=== PATIENT | male | born 1940 | race Caucasian/White ===

== ENCOUNTER → 2017-07-29 10:53 | Outpatient (CLI) | payer MEDICARE, OTHER, SELFPAY ==
[2017-07-23 15:32] VITALS: BP 144/70; BMI 23.8
[2017-07-29 13:36] LABS: AST(SGOT) 21 U/L (15-37); Alanine Aminotransfer ALT/SGPT 38 U/L (16-61); Albumin, Serum 4.1 g/dL (3.2-5.0); Alkaline Phosphatase 57 U/L (45-117); Bilirubin, Direct 0.24 mg/dL (0.00-0.30); Cholesterol 181 mg/dL (200); Globulin 3.5 g/dL (2.2-4.2); High Density Lipoprotein 72 mg/dL; Protein, Total 7.6 g/dL (6.4-8.2); Triglycerides 56 mg/dL; Very Low Density Lipoprotein 11 mg/dL (5-40)
== END ==
PROVIDERS: Family Provider Internal Medicine; PCP Internal Medicine; Visit Provider Internal Medicine Cardiovascular Disease
DX: E78.5 Hyperlipidemia, unspecified (principal)
CPT/HCPCS: 36415; 80061; 80076

== ENCOUNTER → 2017-12-15 | Outpatient (CLI) | payer MEDICARE, OTHER, SELFPAY ==
[2017-12-15 17:50] LABS: Absolute Lymphocyte Count 1.78 X10^3/ul (0.83-4.51); Absolute Neutrophil Count 2.6 X10^3/uL (2.0-7.7); Basophil# 0.05 X10^3/uL; Eosinophil# 0.38 X10^3/uL; Eosinophils% 7.4 % (0-5); Hematocrit 40.8 % (40-54); Lymphocyte # 1.78 X10^3/ul (4.0); Lymphocyte % 34.5 % (19-41); Mean Corp Hgb Conc 34.3 g/gl (32-36); Mean Corpuscular Volume 93.2 fL (80-94); Mean Platelet Vol. 9.6 fl (6.2-12.0); Monocyte# 0.34 X10^3/uL; Monocyte% 6.6 % (0-10); Neutrophil % 50.3 % (47-70); POSITIVE COUNT NO; POSITIVE DIFFERENTIAL NO; POSITIVE MORPHOLOGY NO; Platelet Count 202 K/mm3 (150-450); RBC Distribution Width CV 12.8 % (11.6-14.6); RBC Distribution Width SD 43.8 fl (35.1-43.9); Red Blood Count 4.38 M/mm3 (4.6-6.2); White Blood Count 5.2 K/mm3 (4.4-11.0)
[2017-12-15 17:57] LABS: Erythrocyte Sedimentation Rate 6 mm/hr (0-20)
[2017-12-15 18:05] LABS: Vitamin B12 537 pg/mL (211-911); Vitamin D,25 Hydroxy 44.4 ng/mL (29.95-100.01)
[2017-12-15 18:06] LABS: ALB/GLOB Ratio 1.1 RATIO (0.9-2.4); AST(SGOT) 18 U/L (15-37); Alanine Aminotransfer ALT/SGPT 35 U/L (16-61); Albumin, Serum 4.2 g/dL (3.2-5.0); Alkaline Phosphatase 51 U/L (45-117); Anion Gap 9 (5-15); BUN 15 mg/dL (7-18); BUN/Creat Ratio 14.7 RATIO (10-20); Calcium,Total 9.1 mg/dL (8.5-10.1); Chloride 102 mmol/L (98-107); Creatinine, Serum 1.02 mg/dL (0.70-1.30); EST Glomerular Filtration Rate 75 mL/min (>60); Est Glom Filt Rate - Afr Amer 91 mL/min (>60); Ferritin 194 ng/mL (26-388); Globulin 3.8 g/dL (2.2-4.2); Glucose 115 mg/dL (74-106); Iron 105 ug/dL (65-175); Magnesium 2.3 mg/dL (1.6-2.6); Potassium 3.8 mmol/L (3.5-5.1); Sodium Level 139 mmol/L (136-145); Thyroid Stim Hormone (TSH) 1.56 uIU/mL (0.358-3.74)
== END | disposition home or self-care (01) ==
LOC: MFPLAB 15:12
PROVIDERS: Family Provider Family Medicine; PCP Family Medicine; Visit Provider Family Medicine
DX: I25.10 Atherosclerotic heart disease of native coronary artery without angina pectoris (principal); R53.83 Other fatigue; R41.3 Other amnesia; R25.3 Fasciculation
CPT/HCPCS: 36415; 80053; 82306; 82607; 82728; 83540; 83735; 84403; 84443; 85025; 85652

== ENCOUNTER → 2018-01-25 10:54 | Outpatient (CLI) | payer MEDICARE, OTHER, SELFPAY ==
--- NOTE | 2018-01-25 10:58 | MRI_ITS ---
STUDY: MRI BRAIN WITHOUT CONTRAST REASON FOR EXAM: Male, 77 years old. MEMORY ISSUES CONFUSION. TECHNIQUE: Standardized multiplanar fat and water weighted pulse sequences were obtained. COMPARISON: None. FINDINGS: Normal size of the ventricles and extra-axial spaces for the patient's age. There are a limited number of small white matter hyperintensities, distributed throughout the deep white matter tracts of the cerebral hemispheres, consistent with mild chronic white matter ischemic changes. Normal bilateral basal ganglia. Normal thalami. There is no extra-axial fluid accumulation. Normal flow voids within the major intracranial circulation suggesting patency by spin echo criteria. Normal sella turcica, pituitary gland, infundibular stalk, optic chiasm and hypothalamus. Normal tectal plate and pineal gland. Normal midbrain, roxana and medulla. Normal cerebellum. Normal basal cisterns. Normal bilateral temporal bones. Normal bilateral internal auditory canals. There is an ocular lens implant the left globe. Normal right globe. The intraorbital contents otherwise are normal. There is mucosal thickening of the ethmoid, left frontal, left sphenoid and left maxillary sinuses.. Normal calvarium and skull base. Normal visualized soft tissue structures. Normal visualized upper cervical spine. MRI/Brain without Contrast IMPRESSION: Involutional changes of the brain, as described above. There is mild small vessel ischemic white matter disease. There is paranasal sinusitis. Electronically Signed: Sherrie Zendejas MD at 11:59 EDT , Service support ,
== END ==
PROVIDERS: Family Provider Family Medicine; PCP Family Medicine; Visit Provider Family Medicine
DX: R41.3 Other amnesia (principal)
CPT/HCPCS: 70551

== ENCOUNTER → 2018-05-17 07:09 | Outpatient (CLI) | payer MEDICARE, OTHER, SELFPAY ==
[2018-04-25 15:12] VITALS: BMI 23.8
--- NOTE | 2018-05-17 11:23 | NEURO ---
NCS and/or EMG Patient Report Ordering Doctor: Marcos Nelson DATE OF SERVICE: 05/17/18 This is a bilateral upper extremity nerve conduction study and a right upper and right lower extremity EMG along with EMG of cervical thoracic and lumbar paraspinal musculature on the right in this 77-year-old otherwise healthy male with a history of gradual weakness in his arms bilaterally as well as muscle twitching bilaterally in his arms. He also notices muscle cramps. He has been on atorvastatin for many years, and his symptoms as above have been present for approximately 2 years. 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 There is no neck pain or neck injury. On examination he has visible muscle fasciculations in his bilateral pectoralis muscles, bilateral biceps and deltoid muscles, and bilateral thoracic paraspinal muscles. There are no fasciculations evident in his legs. Sensory and motor nerve conduction study of the bilateral upper extremities is performed. There is mild prolongation of the median motor distal latencies with mild reduction of amplitudes more so on the left side but intact conduction velocities. The ulnar motor and sensory and radial sensory responses are normal. The median and ulnar F-wave latencies are normal. It was suggested to the patient that the right lower extremity also be evaluated by nerve conduction study however he deferred testing. Extensive needle electromyography was performed in the right upper extremity. Muscles evaluated included the first dorsal interosseous, abductor pollicis brevis, brachioradialis, biceps, triceps and deltoid muscles as well as the pectoralis major muscles. Fibrillations and fasciculations were noted and several muscles including the abductor pollicis brevis, brachioradialis, biceps and pectoralis muscle. Right thoracic paraspinal muscles demonstrated fibrillation potentials. There were fibrillation potentials also in the cervical paraspinal muscles on the right. Lumbar paraspinal muscles demonstrated normal insertional activity. In the right lower extremity muscles evaluated included the extensor digitorum brevis, abductor hallucis, medial gastrocnemius, anterior tibialis, vastus medialis and vastus lateralis muscles. In the lower extremity all muscles demonstrated normal insertional activity with absence of pathologic spontaneous activity. Impression: Abnormal EMG in multiple regions demonstrating relation potentials and fasciculations. Abnormal regions include the right upper extremity and the thoracic paraspinal muscles. There are visible fasciculations bilaterally. Nerve conduction study is normal. These findings are consistent with ALS. Multiple polyradiculopathy may be an alternative although much less likely explanation. This was explained to the patient. Is recommended that the patient have further neuro imaging including thoracic and cervical spine.
--- NOTE | 2018-05-17 11:30 | NEURO_ITS ---
NCS and/or EMG Patient Report Ordering Doctor: Marcos Nelson DATE OF SERVICE: 05/17/18 This is a bilateral upper extremity nerve conduction study and a right upper and right lower extremity EMG along with EMG of cervical thoracic and lumbar paraspinal musculature on the right in this 77-year-old otherwise healthy male with a history of gradual weakness in his arms bilaterally as well as muscle twitching bilaterally in his arms. He also notices muscle cramps. He has been on atorvastatin for many years, and his symptoms as above have been present for approximately 2 years. 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 There is no neck pain or neck injury. On examination he has visible muscle fasciculations in his bilateral pectoralis muscles, bilateral biceps and deltoid muscles, and bilateral thoracic paraspinal muscles. There are no fasciculations evident in his legs. Sensory and motor nerve conduction study of the bilateral upper extremities is performed. There is mild prolongation of the median motor distal latencies with mild reduction of amplitudes more so on the left side but intact conduction velocities. The ulnar motor and sensory and radial sensory responses are normal. The median and ulnar F-wave latencies are normal. It was suggested to the patient that the right lower extremity also be evaluated by nerve conduction study however he deferred testing. Extensive needle electromyography was performed in the right upper extremity. Muscles evaluated included the first dorsal interosseous, abductor pollicis brevis, brachioradialis, biceps, triceps and deltoid muscles as well as the pectoralis major muscles. Fibrillations and fasciculations were noted and several muscles including the abductor pollicis brevis, brachioradialis, biceps and pectoralis muscle. Right thoracic paraspinal muscles demonstrated fibrillation potentials. There were fibrillation potentials also in the cervical paraspinal muscles on the right. Lumbar paraspinal muscles demonstrated normal insertional activity. In the right lower extremity muscles evaluated included the extensor digitorum brevis, abductor hallucis, medial gastrocnemius, anterior tibialis, vastus medialis and vastus lateralis muscles. In the lower extremity all muscles demonstrated normal insertional activity with absence of pathologic spontaneous activity. Impression: Abnormal EMG in multiple regions demonstrating relation potentials and fasciculations. Abnormal regions include the right upper extremity and the thoracic paraspinal muscles. There are visible fasciculations bilaterally. Nerve conduction study is normal. These findings are consistent with ALS. M ultiple polyradiculopathy may be an alternative although much less likely explanation. This was explained to the patient. Is recommended that the patient have further neuro imaging including thoracic and cervical spine.
== END ==
PROVIDERS: Family Provider Family Medicine; PCP Family Medicine; Referring Provider Family Medicine; Visit Provider Family Medicine
DX: R25.3 Fasciculation (principal)
CPT/HCPCS: 95886; 95911

== ENCOUNTER → 2018-05-26 07:18 | Outpatient (CLI) | payer MEDICARE, OTHER, SELFPAY ==
[2018-04-25 15:12] VITALS: BMI 23.8
--- NOTE | 2018-05-26 07:21 | MRI_ITS ---
STUDY: MRI THORACIC SPINE WITHOUT CONTRAST REASON FOR EXAM: Male, 77 years old. Muscle twitching in the upper arms and bilateral arm weakness. TECHNIQUE: Standardized fat and water weighted pulse sequences were obtained in the sagittal and axial planes. COMPARISON: None. FINDINGS: Normal kyphosis of the thoracic spine. There is no substantial scoliosis. T1-2, T2-3, T3-4, T4-5, T5-6, T6-7, T7-8, T8-9, T9-10, T10-11, T11-12: Normal endplates. Normal disc hydration, heights and morphology of the corresponding intervertebral discs. Normal central canal and intervertebral neural foramina at the corresponding levels. Normal visualized thoracic cord. Normal conus medullaris that terminates at the lower T12 vertebral body level. The soft tissue structures are unremarkable. MRI/Spine Thoracic (Routine) IMPRESSION: Normal unenhanced MRI examination of the thoracic spine. Electronically Signed: Blake Villalta MD at 15:03 EST , Service support ,
--- NOTE | 2018-05-26 07:21 | MRI_ITS ---
STUDY: MRI CERVICAL SPINE WITHOUT CONTRAST REASON FOR EXAM: Male, 77 years old. Muscle twitching in the upper arms and bilateral arm weakness. TECHNIQUE: Standardized fat and water weighted pulse sequences were obtained in the sagittal and axial planes. COMPARISON: None FINDINGS: Normal foramen magnum and brainstem-cervical cord junction. Normal craniovertebral junction. Normal anterior atlantoaxial articulation. Normal odontoid process. Normal cervical lordosis. Normal vertebral bodies and posterior osseous elements. C2-3: Normal endplates. Normal disc height, signal and morphology. Normal central canal and intervertebral neural foramina. C3-4: Normal endplates. Normal disc height, signal and morphology. Normal central canal and intervertebral neural foramina. C4-5: Normal endplates. Normal disc height, signal and morphology. Normal central canal and intervertebral neural foramina. C5-6: Pronounced disc space height narrowing. Minimal anterior and posterior marginal spurs. Modic type II degenerative vertebral marrow fatty changes underneath the vertebral endplates. Normal central canal. Moderately pronounced stenosis of the bilateral intervertebral neural foramina. C6-7: Pronounced disc space height narrowing. Minimal anterior and posterior marginal spurs. Modic type II degenerative fatty vertebral marrow fatty changes underneath the vertebral endplates. Normal central canal. Mild asymmetric stenosis of the bilateral intervertebral neural foramina. C7-T1: Normal endplates. Normal disc morphology but mild disc space height narrowing. Normal central canal and bilateral intervertebral neural foramina. T1-T2, T2-T3, T3-T4 and T4-T5: (Sagittal only). Normal endplates. Normal disc height, hydration and morphology. Normal central canal and bilateral intervertebral neural foramina. Normal cervical cord. Normal visualized soft tissue structures. MRI/Spine Cervical (Routine) IMPRESSION: 1. No MRI evidence of cervical extruded disc fragment. 2. Pronounced C5-C6 disc space height narrowing with anterior and posterior marginal spurs and moderately pronounced stenosis of both intervertebral neural foramina. 3. Pronounced C6-C7 disc space height narrowing with anterior and posterior marginal spurs and mild asymmetric stenosis of the bilateral intervertebral neural foramina. Electronically Signed: Blake Villalta MD at 14:58 EST , Service support ,
== END ==
PROVIDERS: Family Provider Family Medicine; PCP Family Medicine; Referring Provider Family Medicine; Visit Provider Family Medicine
DX: R25.3 Fasciculation (principal)
CPT/HCPCS: 72141; 72146

== ENCOUNTER → 2018-11-18 09:34 | Outpatient (CLI) | payer MEDICARE, OTHER, SELFPAY ==
[2018-10-31 15:01] VITALS: BMI 23.3
[2018-11-18 10:28] LABS: AST(SGOT) 18 U/L (15-37); Alanine Aminotransfer ALT/SGPT 29 U/L (16-61); Albumin, Serum 3.8 g/dL (3.2-5.0); Alkaline Phosphatase 60 U/L (45-117); Bilirubin, Direct 0.19 mg/dL (0.00-0.30); Cholesterol 235 mg/dL (200); Globulin 3.8 g/dL (2.2-4.2); High Density Lipoprotein 65 mg/dL; Protein, Total 7.6 g/dL (6.4-8.2); Triglycerides 82 mg/dL; Very Low Density Lipoprotein 16 mg/dL (5-40)
== END ==
PROVIDERS: Internal Medicine Cardiovascular Disease; Family Provider Family Medicine; PCP Family Medicine; Referring Provider Nurse Practitioner Family; Visit Provider Nurse Practitioner Family
DX: E78.5 Hyperlipidemia, unspecified (principal); Z79.899 Other long term (current) drug therapy
CPT/HCPCS: 36415; 80061; 80076

== ENCOUNTER 2019-08-14 11:30 | Outpatient (RCR) | payer MEDICARE, OTHER, SELFPAY ==
[2019-06-08 13:23] VITALS: BMI 23.3
--- NOTE | 2019-06-28 11:40 | HP.OTEVAL_ITS ---
Patient's Visit Information VIRGIL COLINDRES is a 78 year old M, referred to Occupational Therapy by Marcos Nelson MD, with a diagnosis of bilatera UB weakness. Date of Evaluation: 06/26/19 Occupational Therapist: Virginia Justin, DALTON/Jaya, CHT - Subjective Subjective: This 78 year old male was seen for OT eval with Dx of ALS and UE weakness- pt states he has been doing ex. with his legs and walks his dog once a day and his walkes the dog the other time. Pt states he noticed he was unable to extend his RF and middle finger when he goes to reach for an object.- pt states he limited with UE strength and limited ROM. pt states he does ex with LE- PT would like to cont to strengthen his UB - ADLs Dressing: Overhead shirt, Button shirt, Coat Comments: drying off after shower - ROM Shoulder: right flex 80* left 60* pt sig. limited with ROM Elbow: R/L WNL Forearm: R/L WNL Wrist: R/L WNL ROM Comments: pt demo with limited Right MF/RF digit ext. 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 of right forearm/wrist affecting digit ext. - Sensation Sensation Comments: denies - Quick DASH-Disab of Arm,Shoulder& Hand Quick DASH Score: 34.0900 - Goals Goal:: PT will demo a increase in MMT of bilateral shoulder flex to 4/5 to increase ind. with ADLs and IADLS by d/c. Pt will demo a increase in wrist/ forearm MMT to 4/5 to increase pts ind with ADLS and IADLS. pt will demo a increase in right process improvement manager strength by 15# or greater to increase ind with home mtf task and meal prep by d/c. Goal:: pt will demo a increase in bilateral shoulder flex to 130* or greater to increase ind with bathing tasks by d/c. pt will demo increases in right finger MCP ext by 15* to ind. reach and grasp cup, mug or other objects by d/c. Goal:: pt will demo understanding of ad. eq. to increase ind. with ADLs and IADLs as needed by d/c. - Rehabilitation General Assessment: Pt demo limited ROM and strength of UB that limits his Ind with ADLs and IADLS. Pt would benefit from skilled OT services 3x week for 4 weeks to increase pts functional strength with ADLs and IADLS. Today therapist ed. pt on supine UB PRE pt demo good ability and was dinovne handout on ex, pt demo understanding and agree to POC. Rehabilitation Potential: Good - Anticipated Interventions Anticipated Interventions: A/AAROM/PROM, Strengthening, Education re assistive Equipment, Home Program Other Interventions: health and wellness program - Visit Plan Frequency: 3x /Week Duration: 4 Weeks TEXT: Thank you for the opportunity to evaluate your patient. For Medicare and Medicare HMO plans, please review the plan of care and approve it. It will need to be FAXED BACK to us at [phone] for Medicare purposes. Please let me know if there are questions or concerns regarding this plan of care. Physician Signature: Date:
--- NOTE | 2019-07-18 07:29 | HP.OTREVAL ---
Marcos Nelson MD, It has been my pleasure to treat VIRGIL COLINDRES over the last 9 visits for bilatera UB weakness. Please see the progress note below for an update on the occupational therapy plan of care! Subjective: Pt arrives to OT- reports he is performing his HEP 2x a day. feels things are better with his hands but no change in shoulders. Objective/Function: pt demo understanding of his HEP- AAROM supine to increase shoulder flex, isometric ex for bilateral shoulders to strengthen with no active joint motion. pt is using t-putty to work inspector circuitry negative and pinch strength. pt demo slight increase in pinch strength by 2#- no change in inspector circuitry negative strength or MMT from initial OT eval. Therapist asked pt what he felt on Health and wellness program- pt not interested at this time but will cont with his HEP. rec's pt cont with HEP for 4 weeks and return to re-eval at that time, for change in HEP if appropriate. Plan Frequency: 3x /Week Duration: 4 Weeks Plan: pt to return in 4 weeks to reivew progress and make adj, to HEP Goals - Goals Goal:: PT will demo a increase in MMT of bilateral shoulder flex to 4/5 to increase ind. with ADLs and IADLS by d/c. Pt will demo a increase in wrist/ forearm MMT to 4/5 to increase pts ind with ADLS and IADLS. pt will demo a increase in right inspector circuitry negative strength by 15# or greater to increase ind with home mtf task and meal prep by d/c. Goal:: pt will demo a increase in bilateral shoulder flex to 130* or greater to increase ind with bathing tasks by d/c. pt will demo increases in right finger MCP ext by 15* to ind. reach and grasp cup, mug or other objects by d/c. Goal:: pt will demo understanding of ad. eq. to increase ind. with ADLs and IADLs as needed by d/c. Anticipated Interventions Anticipated Interventions: A/AAROM/PROM, Strengthening, Education re assistive Equipment, Home Program Other Interventions: health and wellness program Please do not hesitate to contact me at [phone] by phone or if you have questions or concerns regarding this new plan of care! Sincerely, Virgniia Justin, OTR/L, CHT
--- NOTE | 2019-08-14 17:06 | HP.OTDCSUM ---
HP - OT D/C Summary It has been my pleasure to treat VIRGIL COLINDRES under orders from Marcos Nelson MD, for the diagnosis of bilatera UB weakness for a total of 10 visit(s). Please see the following information for a summary of their discharge status. - Overall Improvement % Improvement: 50 - Objective Objective/Function: right network associate strength increased from 25# to 37# left network associate strength increased from 40# to 45# pt right forearm supination/pronation MMT increased to 4/5- pts ROM of shoulders did not change or wrist and digit extensors. Therapist ed. pt that orthosis to assist pts finger ext. but pt was not receptive. Pt demo understanding of HEP and will cont to delay progress of his disease. - Goals Patient Goals: Regain Mobility, Regain Strength Goal:: PT will demo a increase in MMT of bilateral shoulder flex to 4/5 to increase ind. with ADLs and IADLS by d/c. Pt will demo a increase in wrist/ forearm MMT to 4/5 to increase pts ind with ADLS and IADLS. pt will demo a increase in right network associate strength by 15# or greater to increase ind with home mtf task and meal prep by d/c. Goal:: pt will demo a increase in bilateral shoulder flex to 130* or greater to increase ind with bathing tasks by d/c. pt will demo increases in right finger MCP ext by 15* to ind. reach and grasp cup, mug or other objects by d/c. Goal:: pt will demo understanding of ad. eq. to increase ind. with ADLs and IADLs as needed by d/c. - Plan Plan: D/C with HEP - D/C Information Discharge Comments: Pt was seen for 10 OT sessions. Therapist ensured pts ability to perform a HEP to strengthen BUE. pt demo increase with network associate and pinch strength but wrist extensors no change along with bilateral shoulder ROM. pt demo understanding of HEP and is to cont. as he leo. Today therapist gave pt 4 more ex. to increase ex. of digits and wrist. pt demo understanding of HEP and agree to D/C If there are questions or concerns regarding this patient's occupational therapy, please fell free to call me at [phone]. Thank you for the referral of this patient. Sincerely, Virginia Justin, OTR/L, CHT
== END 2019-08-14 19:00 | disposition home or self-care (01) ==
LOC: OT 11:30
PROVIDERS: Family Provider Family Medicine; PCP Family Medicine; Referring Provider Family Medicine; Visit Provider Family Medicine
DX: G12.21 Amyotrophic lateral sclerosis (principal); R29.898 Other symptoms and signs involving the musculoskeletal system
CPT/HCPCS: 97110; 97166; 97530

== ENCOUNTER 2020-08-22 16:22 | Outpatient (RCR) | payer MEDICARE, OTHER, SELFPAY ==
[2020-04-15 14:39] VITALS: BMI 22.3
[2020-08-22] MEDS: COVID-19 VACC, MRNA(PFIZER)/PF 30 MCG/0.3 ML SYRINGE IM (15:37)
[2020-09-12] MEDS: COVID-19 VACC, MRNA(PFIZER)/PF 30 MCG/0.3 ML SYRINGE IM (15:12)
== END 2020-11-26 23:59 ==
LOC: IMMUN 16:22
PROVIDERS: PCP Family Medicine; Visit Provider Family Medicine
DX: Z23 Encounter for immunization (principal)
CPT/HCPCS: 0001A; 0002A; 91300

== ENCOUNTER 2021-01-30 14:00 | Outpatient (RCR) | payer MEDICARE, OTHER, SELFPAY ==
[2020-04-15 14:39] VITALS: BMI 22.3
[2020-12-02 10:17] VITALS: BMI 22.3
--- NOTE | 2020-12-04 16:26 | HP.OTEVAL_ITS ---
Patient's Visit Information FAUSTINO COLINDRES is a 80 year old M, referred to Occupational Therapy by Dr. Marcos Nelson MD, with a diagnosis of ALS. Date of Evaluation: 12/04/20 Occupational Therapist: Virginia Justin, OTR/Jaya, CHT - Subjective this 80 year old male was seen for OT eval with dx of ALS. pt arrives with his . pt states he has had a continual decline in his UE function. limited UE AROM and use of his hands with ADLs. pt states his says he has trouble with putting a jacket on. pts states winter clothes are more difficult due to openings of the shirts increase difficulty. pt also states he has a hard time with focus while reading- reading in [place]ian he does notice he has better focus. They would like to know what more they can do to continue with performing his ADls at TALITA level - ADLs Comments: states her room is on 1st floor and Faustino's room is on 2nd floor so he gets does all his bathing and dressing at a modified ind. level. pt stands in shower has grab bar but does not use it. states he does get his own lunch. has to use bilateral hands to hold cup and drink (therapist advised to use light weight cups and ones with handles). cuts food ( therapist rec'd rocker knife or pizza cutter) receptive to pizza cutter. with co ncerns with clothing (neck of clothing is small increase difficulty). pt difficulty with getting belt in belt loops ( therapist rec'd put belt in pants prior to putting on pants). tucking in shirt is challenging. pt states difficulty with concentration on what he is reading ( may need speech eval to address memory/attention. pt had concerns with itching ( therapist ed. pt on staying hydrated and use of lotion or cream) demo understanding - ROM ROM Comments: pt limited with bilateral shoulder flex PROM pt can get 80* , pt demo poor elbow flex separately but able to perform full elbow flex with use of bilateral hands together and elbows supported at his sides. - Strength Strength Comments: Right/left 3-. Elbow: R/L 4-/5. Forearm: Right supination 3/5 pron 4/5 left supination 3+/5 pronation 4/5. Wrist: right wrist ext 3-/5 flex 4/5 left flex/ext 4/5 - Quick DASH-Disab of Arm,Shoulder& Hand Quick DASH Score: 61.3625 - Goals Goal:: pt and family will report understanding of using ad. eq. to decrease need of assist with ADLs by d/c. pt and family will report use of energy conservation with ADls and IADls to increase pts participation in other leisure/family activities by d/c - Rehabilitation General Assessment: pt demo with limited UE ROM and strength increasing pts time with performing her ADls and IADLs. In long discussion with pt and pts they are mtg. and allowing pt to perform his ADLs as much as possible. Pt would benefit from skilled OT 2-3 sessions to ensure pts needs and rec'd adaptive devices/ or home modification, energy conservation is addressed. pt and pts spouse demo understanding. Rehabilitation Potential: Questionable - Anticipated Interventions Joint Protection/Energy Conservation, ADL Training, Education re assistive Equipment, Caregiver Training, Home Program - Visit Plan TEXT: Thank you for the opportunity to evaluate your patient. For Medicare and Medicare HMO plans, please review the plan of care and approve it. It will need to be FAXED BACK to us at [phone] for Medicare purposes. Please let me know if there are questions or concerns regarding this plan of care. Physician Signature: Date:
--- NOTE | 2021-07-01 10:10 | HP.OT.NRP ---
VIRGIL COLINDRES was seen in my office for initial evaluation on 12/04/20. The following Plan of Care was established for this patient: Anticipated Interventions: Joint Protection/Energy Conservation, ADL Training, Education re assistive Equipment, Caregiver Training, Home Program This patient was last seen in our office 01/30/21. Pertinent comments regarding their Occupational therapy will appear below: pt was seen for OT - ed. on ad. eq. and clothing to continue to be ind. with ADLs and IADls. pt demo understanding- pt has not returned to OT at this time and is d/c due to time lapse in services. At this point I will be discontinuing this patient from occupational therapy. I would be happy to see this patient again in the future if found appropriate by the physician. Thank you! Virginia Justin, OTR/L, CHT
== END 2021-01-30 19:00 | disposition home or self-care (01) ==
LOC: OT 14:00
PROVIDERS: PCP Family Medicine; Referring Provider Family Medicine; Visit Provider Family Medicine
DX: G12.21 Amyotrophic lateral sclerosis (principal)
CPT/HCPCS: 97166; 97530

== ENCOUNTER → 2021-02-14 12:59 | Outpatient (CLI) | payer MEDICARE, OTHER, SELFPAY ==
[2021-02-03 10:01] VITALS: BMI 21.1
--- NOTE | 2021-02-14 13:00 | MRI_ITS ---
HISTORY: ALS since 2017, progression of symptoms. TECHNIQUE: Multiplanar and multisequence MR images of the brain were obtained without and with IV gadolinium. IV Contrast dosage and agent: 14 mL Dotarem . # of images incl. paperwork: [id number]. COMPARISON: 01/25/2018. FINDINGS: BRAIN PARENCHYMA: Increased T2 FLAIR signal in the bilateral cerebral white matter and roxana, mildly increased from prior. No abnormal focus of restricted diffusion. No enhancing lesion in the brain parenchyma. INTRACRANIAL HEMORRHAGE: No acute intracranial hemorrhage. CSF SPACES: Mild generalized volume loss. No midline shift or other significant mass effect. No extra-axial fluid collection. VESSELS: Major intracranial flow voids maintained. ORBITS: Left lens resection. PARANASAL SINUSES: Mild mucosal thickening in the sphenoid sinus and ethmoid air cells. MRI/Brain W/WO Contrast IMPRESSION: No evidence of enhancing intracranial mass, acute infarct, or acute intracranial hemorrhage. Mild progression of chronic white matter changes. at 1605 Reported and signed by: Cindy Tan MD Electronically Signed: Cindy Tan MD at 16:04 EDT Tel , Service support ,
[2021-02-14 13:04] LABS: Lyme Ab Screen Interpretation REF LAB
[2021-02-14 13:41] LABS: Hematocrit 39.4 % (40-54); Hemoglobin 13.7 g/dL (13.0-16.5); Mean Corp Hgb Conc 34.8 g/dL (32-36); Mean Corpuscular Hgb 32.6 pg (27.0-32.0); Mean Corpuscular Volume 93.8 fL (80-94); Mean Platelet Vol. 9.3 fl (6.2-12.0); Platelet Count 198 K/mm3 (150-450); RBC Distribution Width CV 12.9 % (11.6-14.6); RBC Distribution Width SD 44.4 fl (35.1-43.9); White Blood Count 6.4 K/mm3 (4.4-11.0)
[2021-02-14 14:10] LABS: Vitamin B12 436 pg/mL (211-911)
[2021-02-14 14:23] LABS: ALB/GLOB Ratio 1.2 RATIO (0.9-2.4); AST(SGOT) 26 U/L (15-37); Alanine Aminotransfer ALT/SGPT 43 U/L (16-61); Alkaline Phosphatase 67 U/L (45-117); Anion Gap 4 (5-15); BUN 11 mg/dL (7-18); BUN/Creat Ratio 18.2 RATIO (10-20); CPK Total, Creatine Kinase 274 U/L (39-308); Calcium,Total 8.9 mg/dL (8.5-10.1); Chloride 104 mmol/L (98-107); EST Glomerular Filtration Rate 137 mL/min (>60); Est Glom Filt Rate - Afr Amer 166 mL/min (>60); Globulin 3.4 g/dL (2.2-4.2); Glucose 102 mg/dL (74-106); Magnesium 2.3 mg/dL (1.6-2.6); Protein, Total 7.4 g/dL (6.4-8.2); Sodium Level 137 mmol/L (136-145); Thyroid Stim Hormone (TSH) 2.04 uIU/mL (0.358-3.74)
[2021-02-17 17:34] LABS: Vitamin D 1,25-Dihydroxy 33.5 pg/mL (19.9-79.3)
[2021-02-19 13:07] LABS: Arsenic 7245 3 ug/L (2-23); Lead, Blood 1 ug/dL (0-4); Lyme Scn Total Ab w/Rflx <0.91 ISR (0.00-0.90); Mercury, Blood 85324 2.7 ug/L (0.0-14.9); Vitamin B1, Thiamine 96.9 nmol/L (66.5-200.0)
== END ==
PROVIDERS: PCP Family Medicine; Referring Provider Psychiatry & Neurology Neurology; Visit Provider Psychiatry & Neurology Neurology
DX: G12.21 Amyotrophic lateral sclerosis (principal); Z79.899 Other long term (current) drug therapy; W57.XXXA Bitten or stung by nonvenomous insect and other nonvenomous arthropods, initial encounter
CPT/HCPCS: 70553; 80053; 82175; 82550; 82607; 82652; 82746; 83655; 83735; 83825; 84425; 84443; 85027; 86618; A9575

== ENCOUNTER → 2021-04-30 10:50 | Outpatient (CLI) | payer MEDICARE, OTHER, SELFPAY ==
--- NOTE | 2021-04-30 15:58 | PFTCOMP ---
COMPLETE PULMONARY FUNCTION TEST INTERPRETATION Brief HPI: Patient is a 80 year old male, currently under the care of Dr. Hurd, who presents to [facility] for complete pulmonary function tests secondary to diagnosis of ALS. Respiratory therapist reports good effort and reproducible results. Interpretation: Forced expiration spirometry shows a mild large airways obstructive ventilatory defect with an FEV1 of 84% predicted. There is a significant bronchodilator response in FEV1 by strict ATS criteria. Spirograms are of poor quality and do not plateau, likely underestimating FVC. The respiratory flow volume loop shows a normal pattern. Lung volumes by body plethysmography show a normal total lung capacity at 5.97 L, 90% predicted. FRC and RV are elevated out of proportion. Lung volume measurements are consistent with air-trapping. Diffusion capacity by carbon monoxide is normal at 118% predicted. The airway resistance is normal. No previous pulmonary function tests were available for review. Impression: Fully reversible mild large airways obstructive ventilatory defect with preserved diffusion capacity and total lung capacity.
== END ==
PROVIDERS: PCP Family Medicine; Referring Provider Psychiatry & Neurology Neurology; Visit Provider Psychiatry & Neurology Neurology
DX: G12.21 Amyotrophic lateral sclerosis (principal)
CPT/HCPCS: 94060; 94726; 94729

== ENCOUNTER 2021-05-19 18:27 | Emergency (ER) | payer MEDICARE, OTHER, SELFPAY ==
[2021-05-19 18:29] VITALS: BP 160/97; PULSE 83; RESP 18; TEMP 36.4; O2SAT 97
--- NOTE | 2021-05-19 20:11 | RAD_ITS ---
STUDY: X-RAY - ABDOMEN/PELVIS REASON FOR EXAM: Male, 80 years old. Constipation. TECHNIQUE: Two AP supine views of the abdomen and pelvis. COMPARISON: None. FINDINGS: Normal visualized lung bases. There is a nonspecific bowel gas pattern. There is air and feces throughout the colon. There is mildly distended small bowel loops in left upper quadrant. There is no demonstrated free abdominal air. The visualized liver, spleen and kidneys are grossly normal in size and morphology. Normal soft tissue structures. Normal visualized osseous structures. RAD/Abdomen Single View IMPRESSION: 1. Question left upper quadrant localized ileus. Electronically Signed: Brenden Gracia DO at 21:37 EST Tel [phone], Service support ,
--- NOTE | 2021-05-19 20:29 | ED.VIS.GI ---
HPI HPI - GI History of Present Illness Chief Complaint: Constipation Informant: patient and spouse/S.O. Abdominal Pain/Flank Pain Onset: Days Context: Gradual Onset Timing: Continuous Location: Diffuse Current Severity: Mild Maximum Severity: Mild Worsened by: Nothing Relieved by: Food Nausea/Vomiting/Emesis GI Symptom: Negative for Nausea and Vomiting Diarrhea/Melena/Hematochezia GI Symptom: Negative for Diarrhea, Melena and Hematochezia Associated Symptoms Associated Symptoms: Negative for Dysuria, Frequency, Hematuria and Urgency Narrative Narrative: 80-year-old male history of ALS, coronary disease with 2 stents. States he been constipated for the last 4 days. He has had no bowel movement on the last 3 to 4 days. Says he typically does not get constipated. He denies any dysuria. He denies any nausea, vomiting or fever. No dysuria. Prior similar symptoms: No Recent Illness/Hospitalization: No PFSH [facility] Medical History Abnormal EKG ALS (amyotrophic lateral sclerosis) Atherosclerotic heart disease of [place] coronary artery without angina pectoris Atrial arrhythmia Chest pain Dizziness and giddiness Essential hypertension Family history of hypertension Fatigue Hyperlipidemia Hypertension Long-term use of high-risk medication Palpitations Premature atrial contractions Premature ventricular contraction Unstable angina Home Medications aspirin 81 mg tablet,delayed release 81 mg PO QDAY 07/22/17 [History Last Taken Unknown] omega-3 fatty acids 1,000 mg capsule 1,000 mg PO QDAY 07/22/17 [History Last Taken Unknown] cholecalciferol (vitamin D3) 3,000 unit PO QDAY PRN ml 10/31/18 [History Last Taken Unknown] melatonin 3 mg tablet 3 mg PO HS PRN 10/31/18 [History Last Taken Unknown] latanoprost 0.005 % eye drops 1 drp OPHTHALMIC QPM ml 04/15/20 [History Last Taken Unknown] timolol maleate 0.5 % eye drops 1 drp OPHTHALMIC DAILY 75 Days #5 ml 04/15/20 [History Last Taken Unknown] clopidogrel 75 mg tablet 75 mg PO QDAY #90 tab 12/30/20 [Rx Last Taken Unknown] losartan 25 mg tablet 25 mg PO DAILY tab 01/15/21 [History Last Taken Unknown] donepezil 10 mg tablet 10 mg PO QHS #30 tab 02/03/21 [Rx Last Taken Unknown] donepezil 5 mg tablet 5 mg PO QHS #30 tab 02/03/21 [Rx Last Taken Unknown] riluzole 50 mg tablet 50 mg PO .COMPLEX #60 tab 04/10/21 [Rx Last Taken Unknown] Allergy/AdvReac Type Severity Reaction Status Date / Time nitroglycerin AdvReac Severe Low BP, Verified 05/19/21 18:31 near syncope Family History Father Myocardial infarction CAD (coronary artery disease) Surgical History History of repair of rotator cuff Hx of appendectomy Presence of stent in coronary artery (~08/2014) Social History Smoking Status: Never smoker how long ago did patient quit smokin years ago second hand exposure: No alcohol intake: current alcohol intake frequency: 0-2 drinks per day Alcohol type: wine and hard liquor substance use type: does not use caffeine: Yes Type: coffee Number of servings: 1 ROS ROS ED ROS Narrative Constipation. No fever. No vomiting. Review of Systems ROS Unobtainable: Denies due to encephalopathy Constitutional Constitutional ED: Denies fever(s) ENT ENT ED: Denies ear pain Cardiovascular Cardiovascular: Denies chest pain Respiratory/Chest Respiratory/Chest: Denies dyspnea Gastrointestinal Gastrointestinal: Reports constipation; Denies abdominal pain, diarrhea, melena, nausea or vomiting Genitourinary Genitourinary ED: Denies dysuria or hematuria Musculoskeletal Musculoskeletal: Denies myalgias Integumentary Denies rash Neurologic Neurologic: Denies headache(s) Psychiatric Psychiatric: Denies depression Endocrine Endocrinology: Denies polyuria Hematologic/Lymphatic Hematologic/Lymphatic: Denies easy bruising Allergic/Immunologic Allergic/Immunologic ED: Denies urticaria EXAM Physical Exam Narrative Exam Narrative: 10-year-old male no acute distress vital signs stable afebrile. HEENT exam unremarkable. Moist with membranes. Lungs clear to auscultation. Heart regular rhythm rate about 80 no murmur. Abdomen soft nondistended normal bowel sounds no peritoneal signs. No distention. No signs of obstruction. No hernia or mass. Right upper and right lower quadrants are unremarkable. Moving all 4 extremities. Nontender no edema. Back nontender. Neurologically is awake and alert with no focal motor deficits at this time. Const Vital Signs: 05/19/21 18:29 05/19/21 21:34 Temperature 97.5 F L 98.4 F Temperature Source Temporal Temporal Pulse Rate 83 89 Respiratory Rate 18 18 Blood Pressure 160/97 H 134/72 H Blood Pressure Mean 118 92 Pulse Ox 97 96 Oxygen Delivery Method Room Air Room Air Positive well nourished and well developed; Negative for obese, cachectic, contractures or unkempt General Appearance ED: well developed and NAD; Negative for unkempt, cachectic, contractures or pallor Nutritional Appearance: Negative for cachectic or obese HEENT Reports moist mucous membranes normocephalic and atraumatic Eyes PERRL and EOMs intact bilaterally Neck no lymphadenopathy, supple and no JVD General: Negative for tenderness Resp normal respiratory effort and clear to auscultation bilaterally Auscultation: Negative for rales, rhonchi or wheezes Cardio regular rate, regular rhythm, S1 normal heart sound, S2 normal heart sound and no murmurs GI non-tender, non-distended and no masses Auscultation: normoactive bowel sounds Palpation: soft; Negative for tender, guarding, rigid or rebound tenderness present Back/Spine no CVA tenderness General Back: Negative for CVA tenderness Cervical Spine: Negative for cervical spine tenderness Extremity full ROM General Extremety ED: Negative for edema or tenderness General Extremity: Negative for edema Neuro moves all extremities Sensorium / Orientation: alert, oriented to person, oriented to place and oriented to time; Negative for orientation impaired Motor Exam: strength 5/5 throughout Psych mental status grossly normal and thought process normal Appearance: Negative for unkempt Attitude: No agitated Mood & Affect: Negative for depressed or tearful Skin no wounds General Skin Exam: Negative for jaundice or pallor Lesions: no lesions Rashes: no rashes MDM MDM MDM Narrative Medical decision making narrative: 80-year-old male with constipation. Exam is benign. KUB is being obtained. We also obtain a bladder scan it was around 200. He has had no urinary symptoms. Labs are not necessary at this time. Repeat exam at 10:20 PM the patient's abdomen is benign. Nondistended no peritoneal signs. I went over the x-ray of both he and his . Clinically there is no signs of ileus has had no vomiting. He has no abdominal pain. This will be treated his constipation with magnesium citrate. I offered them to have this done in the emergency department they did not want to wait he will take the magnesium citrate at home and started in the morning. Radiography Diagnostic Testing: Clinical Impression(s) from Imaging Studies KUB X-Ray 05/19/21 20:11 IMPRESSION: 1. Question left upper quadrant localized ileus. Electronically Signed: Brenden GraciaDO at 21:37 EST Tel [phone], Service support , Discharge Plan Triage Chief Complaint: Constipation ED Provider: Phu Polanco Dx/Rx/DC Orders Clinical Impression: Constipation, ALS (amyotrophic lateral sclerosis) Instructions: ED Constipation (Adult) Prescriptions: No Action aspirin 81 mg tablet,delayed release (DR/EC) 81 mg PO QDAY RF: 0 omega-3 fatty acids 1,000 mg capsule 1,000 mg PO QDAY RF: 0 cholecalciferol (vitamin D3) 1,000 unit/drop drops 3,000 unit PO QDAY PRNRF: 0 melatonin 3 mg tablet 3 mg PO HS PRNRF: 0 timolol maleate 0.5 % drops 1 drp OPHTHALMIC DAILY 75 Days Qty: 5 RF: 0 latanoprost 0.005 % drops 1 drp OPHTHALMIC QPM RF: 0 losartan 25 mg tablet 25 mg PO DAILY RF: 0 donepezil 5 mg tablet 5 mg PO QHS Qty: 30 RF: 0 donepezil 10 mg tablet 10 mg PO QHS Qty: 30 RF: 1 riluzole 50 mg tablet 50 mg PO .COMPLEX Qty: 60 RF: 4 clopidogrel 75 mg tablet 75 mg PO QDAY Qty: 90 RF: 3 Primary Care Provider: Marcos Nelson Referrals: Marcos Nelson MD [Primary Care Provider] - 1-2 Days if not improving Activity Restrictions/Additional Instructions: You will be discharged home with magnesium citrate. Drink half the bottle within 2 h you do not have a bowel movement drink the other half. This may cause cramping and a large bowel movement if you do not have a bowel movement return and we can try a soapsuds enema. Plenty of fluids, fiber, fruits and vegetables and prune juice should also help you move your bowels. Disposition Disposition: Home, Self Care
[2021-05-19 21:34] VITALS: BP 134/72; PULSE 89; RESP 18; TEMP 36.9; O2SAT 96
[2021-05-19] MEDS: Magnesium Citrate 300 ML PO (22:27)
== END 2021-05-19 22:29 | disposition home or self-care (01) ==
PROVIDERS: Emergency Provider Emergency Medicine; PCP Family Medicine
DX: K59.00 Constipation, unspecified (principal); G12.21 Amyotrophic lateral sclerosis; I25.110 Atherosclerotic heart disease of native coronary artery with unstable angina pectoris; Z95.5 Presence of coronary angioplasty implant and graft; Z87.891 Personal history of nicotine dependence
CPT/HCPCS: 74018; 99282

== ENCOUNTER → 2021-10-13 | Outpatient (CLI) | payer MEDICARE, OTHER, SELFPAY ==
--- NOTE | 2021-10-13 14:18 | ST.MBS ---
Modified Barium Swallow - Patient Information Study Date: 10/13/21 Study Time: 13:00 Direct Billable Minutes: 90 Total Minutes procedure & reportin Diagnosis: Amyotrophic lateral sclerosis (G12.21), Dysphagia (R13.10) Referring Physician: Timur Hurd Reason for Referral: Objectively assess swallow function, risk for aspiration, and determine recommendations for least restrictive diet textures and compensatory strategies to improve safety of swallow. Medical History: The patient is a 81 year old male with medical history of ALS (SEE full PMH below) who was referred for MBS study from his neurologist. The patient denies difficulty swallowing at this time. He also denies hx of GERD or PNA. He notes increased difficulty self-feeding due to upper extremity weakness. PMH: Abnormal EKG, ALS (amyotrophic lateral sclerosis), Atherosclerotic heart disease of [place] coronary artery without angina pectoris, Atrial arrhythmia, Chest pain, Dizziness and giddiness, Essential hypertension, Family history of hypertension, Fatigue, Hyperlipidemia, Hypertension, Long-term use of high-risk medication, Palpitations, Premature atrial contractions, Premature ventricular contraction, Unstable angina Current Diet Ordered: Regular textures / Thin liquids Dentition: Natural Teeth Mental Status: WNL Respiratory Status: Oxygenating on Room Air - Penetration-Aspiration Scale Penetration-Aspiration Scale: OBJECTIVE ASSESSMENT OF SWALLOW FUNCTION (QUANTITATIVE ? PER TRIAL): PENETRATION / ASPIRATION SCALE (STUBBS): 1 = does not enter airway 2 = enters airway/above vocal folds/ejected 3 = enters airway/above vocal folds/not ejected 4 = enters airway/contacts vocal folds/ejected 5 = enters airway/contacts vocal folds/not ejected 6 = enters airway/below vocal folds/ejected 7 = enters airway/below vocal folds/not ejected despite effort 8 = enters airway/below vocal folds/no effort VIDEOFLOROSCOPIC SCALE SCORE (STUBBS): Grade I = aspiration of material that has penetrated into the laryngeal vestibule, intact cough reflex Grade II = aspiration < 10 % of the bolus, intact cough reflex Grade III = aspiration of < 10 % of the bolus, reduced cough reflex or aspiration of > 10 % of the bolus, intact cough reflex Grade IV = aspiration of > 10 % of the bolus, reduced cough reflex - Penetration-Aspiration Scale Score Thin Liquid via teaspoon Result: 2= enter airway/above vocal folds/ejected Thin Liquid via teaspoon Trial 2 Result: 1= does not enter airway Thin Liquid via small single sip from cup Result: 2= enter airway/above vocal folds/ejected Thin Liquid via sequential sips from cup Result: 1= does not enter airway [place] Thick Liquid via small single sip from cup Result: 1= does not enter airway [place] Thick Liquid via small single sip from cup Result: 1= does not enter airway Pudding via teaspoon with esophageal screen Result: 1= does not enter airway Cookie Result: 1= does not enter airway Thin Liquid via single sip from straw Result: 1= does not enter airway Thin Liquid via sequential sips from straw Result: 1= does not enter airway - Oral Phase Labial Seal: No Labial Escape Tongue Control During Bolus Hold: Posterior escape of less than half of bolus Bolus Preparation/Mastication: Slow prolonged chewing/mashing with complete recollection Bolus Transport/Lingual Motion: Brisk tongue motion Oral Residue: Residue collection on oral structures - Pharyngeal Phase Initiation of Pharyngeal Swallow: Bolus head at posterior laryngeal surgace of epiglottis Soft Palate Elevation: No bolus between soft palate and pharyngeal wall Laryngeal Elevation: Partial superior movement thyroid cart/partial apprx aryt-epig petiole Anterior Hyoid Excursion: Partial anterior movement Epiglottic Movement: Complete inversion Laryngeal Vestibule Closure at Height of Swallow: Incomplete; narrow column of air/contrast in laryngeal vestibule Pharyngeal Stripping Wave: Present - complete Pharyngoesophageal Segment Opening: Parital distension and partial duration; parital obstruction of flow Tongue Base Retraction: Narrow column of contrast between tongue base & post. pharyngeal wall Pharyngeal Residue: Collection of residue within or on pharyngeal structures - Esophageal Phase Esophageal Clearance: Complete clearance - Diagnosis/Impression Diagnosis: Mild oropharyngeal phase dysphagia (R13.12) Impression: The oral phase is marked by prolonged, but adequate mastication. Piecemeal deglutition required to clear mild oral residue of cookie bolus. Mild deficits in bolus control with posterior loss of thin liquids to posterior surface of the epiglottis upon swallow onset. The pharyngeal phase is marked by mild deficits in airway closure during the swallow. He has mildly decreased laryngeal elevation and anterior hyoid excursion. Mild deficits in tongue base retraction and UES opening resulted in mild pharyngeal residue after the swallow. He demonstrated laryngeal penetration above the vocal folds with full ejection with tsp and cup sips of thin liquids. No aspiration evident during the study. - Recommendations Diet: Regular Textures - Easy to Chew textures (IDDSI Level 7), Thin Liquids Comment: Would consider consuming softer solids/puree textures if increased fatigue noted at meals. Would consider smaller, more frequent meals (4-5 smaller meals per day) if increased fatigue noted at meals. Compensatory Strategies: Small Bites, Small Sips, Slow Rate - Sips one at a time, Alternate bites/solids and sips/liquids, Sitting upright Recommend Repeat Modified Barium Swallow: TBD - Would strongly consider repeat MBS study if concerns for worsening dysphagia (e.g. coughing/throat clearing with intake), aspiration related illness (e.g. pneumonia), or difficulty consuming adequate nutrition/hydration. Need for Skilled Speech Therapy Services: No Education Completed: 1. Described result of evaluation. - Discussed recommendations and provided written handout of recommendations and strategies to decrease aspiration risk. Educated the patient and patient's , Page, in impact of ALS on swallow function and potential need for alternative means of nutrition/hydration in later stages of the disease., 5. Patient demonstrates recommended strategies., 6. Family/caregivers demonstrate recommended strategies. - Status Active ST Patient: Active - Contact Information [facility] Speech Therapy:: Jessie Baker M.A. [facility] Speech-Language Pathologist [facility] [address] [place] [address] [email or web address] [phone] 10/13/21 14:21
== END | disposition home or self-care (01) ==
LOC: RAD 12:52
PROVIDERS: PCP Family Medicine; Referring Provider Psychiatry & Neurology Neurology; Visit Provider Psychiatry & Neurology Neurology
DX: R13.10 Dysphagia, unspecified (principal)
CPT/HCPCS: 74230; 92611

== ENCOUNTER 2022-03-24 21:59 | Emergency (ER) | payer MEDICARE, OTHER, SELFPAY ==
[2022-03-24] VITALS (9 sets, daily range): BP systolic 150–168; BP diastolic 78–106; PULSE 74–84; RESP 15–20; TEMP 36.2–36.8; O2SAT 96–99; BMI 20.2
--- NOTE | 2022-03-24 22:06 | CT_ITS ---
We are attempting to reach an attending provider to discuss findings. An addendum with communication details will be sent when the communication is complete. STUDY: CT BRAIN WITHOUT CONTRAST REASON FOR EXAM: Male, 81 years old. injury RADIATION DOSAGE (If Supplied By Facility): CTDIvol = ( 44.99 ) mGy, DLP = ( 880.47 ) mGycm TECHNIQUE: Transaxial CT imaging of the brain was performed without administration of intravenous contrast material. Individualized dose optimization techniques were used for this CT. COMPARISON: No relevant priors. FINDINGS: Normal soft tissue structures. Normal calvarium. Calcific plaquing of cavernous carotids and M1 segments of the middle cerebral arteries Mild atrophy and moderate periventricular white matter ischemic changes.. Normal basal ganglia and thalami. Normal brainstem. Normal cerebellum. Tiny hyperattenuated density in the right frontal lobe sulcus likely representing measuring approximately 8 x 5.5 mm There is mild acute focal subarachnoid hemorrhage and hemorrhagic contusions in the left frontal and temporal lobe. There are no findings of an acute ischemic infarction. Postsurgical changes of left orbit Mucosal thickening of ethmoid air cells bilaterally. CT/Brain/Head without Contrast IMPRESSION: Mild acute focal subarachnoid hemorrhage and hemorrhagic contusions in the frontal and temporal lobes. Recommend clinical correlation and follow-up studies Probable tiny right frontal meningioma which may be further assessed with contrast-enhanced study if clinically warranted Electronically Signed: Harman Sneed MD at 22:52 EDT ,
--- NOTE | 2022-03-24 22:07 | EDS_ITS ---
HPI HPI - Fall History of Present Illness Chief Complaint: Fall Informant: patient and EMS Occured/Mechanism Occurred: Today Mechanism/Context: Yes same level fall Narrative Narrative: Provide EMS for fall, they state he was going up 2 steps into the house he lives in, and he fell, it was unwitnessed by family but he was found up against the structure with his head in the corner. Patient denies any pain right now. He does not know why he is here and did not know he fell. Denies any other symptoms. [facility] Medical History Abnormal EKG ALS (amyotrophic lateral sclerosis) ALS (amyotrophic lateral sclerosis) Atherosclerotic heart disease of [place] coronary artery without angina pectoris Atrial arrhythmia Chest pain Dizziness and giddiness Essential hypertension Family history of hypertension Fatigue Hyperlipidemia Hypertension Long-term use of high-risk medication Palpitations Premature atrial contractions Premature ventricular contraction Unstable angina Home Medications aspirin 81 mg tablet,delayed release 81 mg PO QDAY 07/22/17 [History Last Taken Unknown] omega-3 fatty acids 1,000 mg capsule 1,000 mg PO QDAY 07/22/17 [History Last Taken Unknown] melatonin 3 mg tablet 3 mg PO HS PRN Insomnia 10/31/18 [History Last Taken Unknown] latanoprost 0.005 % eye drops 1 drp ophthalmic (eye) QPM 04/15/20 [History Last Taken Unknown] timolol maleate 0.5 % eye drops 1 drp ophthalmic (eye) DAILY 75 days #5 mL 04/15/20 [History Last Taken Unknown] riluzole 50 mg tablet 50 mg PO .COMPLEX #60 tabs 10/06/21 [Rx Last Taken Unknown] B-complex with vitamin C 1 tab PO DAILY 10/09/21 [History Last Taken Unknown] ascorbic acid (vitamin C) 500 mg tablet 500 mg PO DAILY 10/09/21 [History Last Taken Unknown] ibuprofen 200 mg tablet 200 mg PO Q6H PRN Pain (Scale Score 1-3) 10/09/21 [History Last Taken Unknown] losartan 25 mg tablet 25 mg PO DAILY #90 tabs 10/09/21 [Rx Last Taken Unknown] clopidogrel 75 mg tablet 75 mg PO QDAY #90 tabs 01/19/22 [Rx Last Taken Unknown] Allergy/AdvReac Type Severity Reaction Status Date / Time nitroglycerin AdvReac Severe Low BP, Verified 03/24/22 22:11 near syncope Family History Father Myocardial infarction CAD (coronary artery disease) Surgical History History of repair of rotator cuff Hx of appendectomy Presence of stent in coronary artery (~08/2014) Social History Smoking Status: Never smoker how long ago did patient quit smokin years ago second hand exposure: No alcohol intake: current alcohol intake frequency: 0-2 drinks per day Alcohol type: wine and hard liquor substance use type: does not use caffeine: Yes Type: coffee Number of servings: 1 ROS ROS ED Review of Systems ROS Unobtainable: due to mental status ENT ENT ED: Denies ear pain or facial pain Cardiovascular Cardiovascular: Denies chest pain Respiratory/Chest Respiratory/Chest: Denies cough or dyspnea Gastrointestinal Gastrointestinal: Denies abdominal pain, diarrhea, nausea or vomiting Genitourinary Genitourinary ED: Denies dysuria Musculoskeletal Musculoskeletal: Denies back pain, extremity pain or neck pain Integumentary Denies abscess, Abrasions, laceration or rash Neurologic Neurologic: Reports confusion; Denies headache(s), paresthesias or weakness EXAM Physical Exam Const Vital Signs: 03/24/22 22:02 03/24/22 22:13 03/24/22 22:59 Temperature 98.2 F Temperature Source Temporal Pulse Rate 77 Respiratory Rate 17 Respiratory Effort Normal Blood Pressure 168/106 H Blood Pressure Mean 126 Pulse Ox 96 98 96 Oxygen Delivery Method Room Air Room Air Room Air 03/24/22 22:41 03/24/22 22:56 03/24/22 23:11 Temperature 98.1 F 97.8 F Temperature Source Temporal Temporal Pulse Rate 74 79 79 Respiratory Rate 17 15 20 H Respiratory Effort Blood Pressure 159/96 H 152/78 H 155/96 H Blood Pressure Mean 117 102 115 Pulse Ox 99 99 96 Oxygen Delivery Method Room Air Room Air Room Air 03/24/22 23:15 Temperature 98.2 F Temperature Source Temporal Pulse Rate 76 Respiratory Rate 15 Respiratory Effort Blood Pressure 150/86 H Blood Pressure Mean 107 Pulse Ox 97 Oxygen Delivery Method Room Air Positive well nourished and well developed General Appearance ED: well developed and NAD HEENT Reports TM's clear and nasal mucous membranes and turbinates normal HEENT Narrative: No pierre sign, periorbital ecchymosis, CSF otorhinorrhea. No signs of head trauma including occiput. atraumatic Face and Sinus: Negative for facial tenderness Tympanic Membrane ED: Yes TM's clear Eyes PERRL and EOMs intact bilaterally Eyes Narrative: Disconjugate gaze. No signs of injury. Visual Acuity: other Other Details: no entrapment or pain with extraocular movements Neck full ROM and supple General: Negative for tenderness Chest Wall inspection of chest normal and palpation of chest normal Chest: symmetrical chest wall rise; Negative for crepitus or tenderness Resp normal respiratory effort and clear to auscultation bilaterally Percussion: other equal BS bilat Cardio no murmurs Rate: regular rate Rhythm: regular rhythm GI normal to inspection, nondistended, normoactive bowel sounds, soft to palpation and non-tender Back/Spine normal ROM Back/Spine Narrative: Only area of tenderness is the left ischial tuberosity. No crepitance. Pelvis stable to AP compression without pain. No signs of back trauma, no tenderness in midline, painless range of motion. Cervical Spine: Negative for cervical spine tenderness Thoracic Spine / Upper Back: Negative for thoracic spinal tenderness Lumbar Spine / Lower Back: Negative for lumbar spinal tenderness Extremity normal to inspection and full ROM General Extremety ED: Negative for tenderness Neuro CN's II-XII intact bilaterally, moves all extremities and no sensory deficits noted Neuro Narrative: Patient knows which city he is in but not the state, does not know for the year or month. Oriented to person. Knows he is in a hospital of some sort. Disconjugate gaze. Generally weak, symmetric BUE nonfocal. Normal strength BLE. Needs help to sit up and then is able to grab the rails of the bed and hold himself in a sitting position for a limited amount of time, maybe 45 seconds. Katlyn Coma Scale: document GCS findings Spontaneous Obeys Commands Confused 14 Sensorium / Orientation: awake, alert and oriented to person Skin no wounds Lesions: no lesions Rashes: no rashes MDM MDM MDM Narrative Medical decision making narrative: CT of the head and a pelvis x-ray were obtained. On my interpretation 1 view pelvis shows no acute traumatic abnormality, specifically looking at the left ischial tuberosity where the patient is tender, I do not see anything acute. His head CT shows small area of hemorrhagic contusion and focal subarachnoid hemorrhage, I suppose this is traumatic. I called the patient's who has Parkinson's and stayed at home, and discussed all this. Patient does not have a DNR. He is ambulatory at baseline without assistance and his ALS affects mostly his upper extremities, the left more than the right. He does have some mild confusion/dementia but for the most part is fairly with it and this is a drastic change with regards to his confusion compared with baseline, and it was noted when they found him on the ground. She states that he went out the back door to turn the light off or something, and trying to get back in fell. After I noted the CT abnormalities, ordered the hemorrhagic order set and added on appropriate labs. On multiple reexaminations, the patient is confused but redirectable, and remains neurologically stable, as he was during my first evaluation with weaknes s in his upper extremities more so than his lower ones. After I discussed with the patient's , their son arrived and I discussed all this with him. Everyone is in agreement to have him go to [place] since it is closer and they have some family there, they prefer [facility] so I discussed with them; accepted by Dr. Valente. Will transfer by ground since pt is hemodynamically and clinically stable at this time without any radiographic signs of intracranial mass effect. Lab Data Attestation: I reviewed the patient's lab results. Labs: Laboratory Results - last 24 hr 03/24/22 03/24/22 22:56 22:56 WBC 7.5 RBC 4.03 L Hgb 13.7 Hct 40.1 MCV 99.5 H MCH 34.0 H MCHC 34.2 RDW Std Deviation 46.2 H RDW Coeff of Amanda 12.6 Plt Count 176 MPV 9.1 Immature Gran % (Auto) 0.900 Neut % (Auto) 64.5 Lymph % (Auto) 23.2 [place] % (Auto) 5.3 Eos % (Auto) 4.9 Baso % (Auto) 1.2 H Absolute Neuts (auto) 4.8 Absolute Lymphs (auto) 1.74 Nucleated RBC % 0 Sodium 139 Potassium 4.0 Chloride 104 Carbon Dioxide 29.0 Anion Gap 6 BUN 12 Creatinine 0.50 L Estim Creat Clear Calc 53.17 Est GFR (MDRD) Af Amer 204 Est GFR (MDRD) Non-Af 168 BUN/Creatinine Ratio 23.8 H Glucose 101 Calcium 9.0 Radiography Diagnostic Testing: Clinical Impression(s) from Imaging Studies Brain CT 03/24/22 22:06 IMPRESSION: Mild acute focal subarachnoid hemorrhage and hemorrhagic contusions in the frontal and temporal lobes. Recommend clinical correlation and follow-up studies Probable tiny right frontal meningioma which may be further assessed with contrast-enhanced study if clinically warranted Electronically Signed: Harman Sneed MD at 22:52 EDT , ADDENDUM: 03/24/22 2300 IMPRESSION: Mild acute focal subarachnoid hemorrhage and hemorrhagic contusions in the frontal and temporal lobes. Recommend clinical correlation and follow-up studies Probable tiny right frontal meningioma which may be further assessed with contrast-enhanced study if clinically warranted N.B. : The above Results were Read Back by Harman Sneed MD to MD Jennifer, and understanding confirmed on 03/24/2022 22:53:41 (ET). Electronically Signed: Harman Sneed MD at 22:52 EDT , Pelvis X-Ray 03/24/22 22:27 IMPRESSION: Normal x-ray examination of the pelvis. Electronically Signed: Harman Sneed MD at 22:44 EDT , Critical Care Time Critical Care Time: Yes Critical care time (excluding procedures): 30-74 minutes (32 min), Including time spent:, Discussing w/Patient &/or Family/Interventional Radiology Rn, Discussing w/Consultants, Arranging Admission or Transfer and Performing Direct Patient Care at Bedside Discharge Plan Triage Chief Complaint: Fall ED Provider: Santy Stacy Dx/Rx/DC Orders Clinical Impression: Traumatic cerebral hemorrhage, ALS (amyotrophic lateral sclerosis), Accidental fall Prescriptions: No Action aspirin 81 mg tablet,delayed release (DR/EC) 81 mg PO QDAY omega-3 fatty acids 1,000 mg capsule 1,000 mg PO QDAY melatonin 3 mg tablet 3 mg PO HS PRN (Reason: Insomnia) timolol maleate 0.5 % drops 1 drp OPHTHALMIC DAILY 75 Days Qty: 5 Rx Instructions: Lt Eye latanoprost 0.005 % drops 1 drp OPHTHALMIC QPM Rx Instructions: Lt Eye/Rt eye every other night B-complex with vitamin C Tablet 1 tab PO DAILY ascorbic acid (vitamin C) 500 mg tablet 500 mg PO DAILY ibuprofen 200 mg tablet 200 mg PO Q6H PRN (Reason: Pain (Scale Score 1-3)) losartan 25 mg tablet 25 mg PO DAILY Qty: 90 3RF riluzole 50 mg tablet 50 mg PO .COMPLEX Qty: 60 0RF Rx Instructions: 50 mg PO twice daily must be taken on empty stomach; no food 1 hr after or 2- 3 hrs before dose clopidogrel 75 mg tablet 75 mg PO QDAY Qty: 90 3RF Rx Instructions: Send to [facility] Primary Care Provider: Marcos Nelson Referrals: Marcos Nelson MD [Primary Care Provider] - Disposition Disposition: Acute Care Hospital
--- NOTE | 2022-03-24 22:27 | RAD_ITS ---
STUDY: X-RAY - PELVIS REASON FOR EXAM: Male, 81 years old. fall/pain L ischial tuberosity TECHNIQUE: One view of the pelvis was obtained. COMPARISON: None. FINDINGS: There is a non-specific bowel gas pattern. Normal visualized soft tissue structures. Normal bilateral iliac wings, sacroiliac joints and visualized sacrum. Normal visualized bilateral superior and inferior pubic rami. Normal pubic symphysis. Normal ischial tuberosities. Normal visualized right femoral head. Normal right acetabulum. Normal right hip joint. Normal visualized left femoral head. Normal left acetabulum. Normal left hip joint. RAD/Pelvis 1 or 2 Views IMPRESSION: Normal x-ray examination of the pelvis. Electronically Signed: Harman Sneed MD at 22:44 EDT ,
[2022-03-24 23:15] LABS: Absolute Lymphocyte Count 1.74 X10^3/uL (0.83-4.51); Absolute Neutrophil Count 4.8 X10^3/uL (2.0-7.7); Anion Gap 6 (5-15); BUN 12 mg/dL (7-18); BUN/Creat Ratio 23.8 RATIO (10-20); Basophil# 0.09 X10^3/uL; Basophil% 1.2 % (0-1); Chloride 104 mmol/L (98-107); EST Glomerular Filtration Rate 168 mL/min (>60); Eosinophil# 0.37 X10^3/uL; Eosinophils% 4.9 % (0-5); Est Glom Filt Rate - Afr Amer 204 mL/min (>60); Estimated Creatinine Clearance 53.17 ml/min; Glucose 101 mg/dL (74-106); Hematocrit 40.1 % (40-54); Hemoglobin 13.7 g/dL (13.0-16.5); Lymphocyte # 1.74 X10^3/ul (0.83-4.51); Lymphocyte % 23.2 % (19-41); Mean Corp Hgb Conc 34.2 g/dL (32-36); Mean Corpuscular Volume 99.5 fL (80-94); Mean Platelet Vol. 9.1 fl (6.2-12.0); Monocyte% 5.3 % (0-10); NRBC Flagged by Analyzer 0 % (0-5); Neutrophil # 4.83 X10^3/uL (2.7-7.7); Neutrophil % 64.5 % (47-70); Platelet Count 176 K/mm3 (150-450); RBC Distribution Width CV 12.6 % (11.6-14.6); RBC Distribution Width SD 46.2 fl (35.1-43.9); Red Blood Count 4.03 M/mm3 (4.6-6.2); Sodium Level 139 mmol/L (136-145); White Blood Count 7.5 K/mm3 (4.4-11.0)
[2022-03-25] VITALS: BP 154/94; PULSE 79; RESP 18; TEMP 36.6; O2SAT 95
[2022-03-25] MEDS: levETIRAcetam IV 1,000 MG/100 ML BAG 400 MG IV
[2022-03-25] MEDS: Labetalol (Prefilled) 20 MG/4 ML IV (00:05)
[2022-03-25] MEDS: Desmopressin Acetate 4 MCG/ML Ampul IV (00:05)
[2022-03-25 00:14] VITALS: BP 122/78; PULSE 69; RESP 17; TEMP 36.5; O2SAT 98
[2022-03-25 00:15] VITALS: BP 122/78; PULSE 68; RESP 22; TEMP 36.3; O2SAT 96
[2022-03-25 00:30] VITALS: BP 119/76; PULSE 76; RESP 17; TEMP 36.6; O2SAT 98
--- NOTE | 2022-03-25 00:31 | ED.RN ---
Called [phone] eugene cruz no one picked up. Called 1000 and told yeast culture operator who sent me to other line that went ot emergency coordinator voicemail. Called back again and yeast culture operator tried another number.
[2022-03-25 00:45] VITALS: O2SAT 98
[2022-03-25 01:00] VITALS: BP 98/73; PULSE 80; RESP 17; TEMP 36.7; O2SAT 98
== END 2022-03-25 01:24 | disposition short-term general hospital (02) ==
PROVIDERS: Emergency Provider Emergency Medicine; PCP Family Medicine; Visit Provider Emergency Medicine
DX: S06.30AA Unspecified focal traumatic brain injury with loss of consciousness status unknown, initial encounter (principal); G12.21 Amyotrophic lateral sclerosis; G20 Parkinson's disease; I10 Essential (primary) hypertension; I25.10 Atherosclerotic heart disease of native coronary artery without angina pectoris; Z95.5 Presence of coronary angioplasty implant and graft; Z79.82 Long term (current) use of aspirin; Z79.899 Other long term (current) drug therapy; W19.XXXA Unspecified fall, initial encounter
CPT/HCPCS: 70450; 72170; 80048; 85025; 96365; 99285; A4216; J2597

== ENCOUNTER 2022-03-31 13:24 | Inpatient (IN) | payer MEDICARE, OTHER, SELFPAY ==
[2022-03-31 14:20] VITALS: BMI 18.2
[2022-03-31 14:47] VITALS: BP 104/68; PULSE 63; RESP 16; TEMP 36.4; O2SAT 98
[2022-03-31 17:10] VITALS: O2SAT 98
[2022-03-31 19:27] VITALS: BP 104/68; PULSE 63; RESP 16; TEMP 36.4; O2SAT 98
--- NOTE | 2022-03-31 21:59 | HP.PCM_ITS ---
HPI - General General Date of Admission: 03/31/22 Date of Service: 03/31/22 Chief Complaint: Here fore 3 hours daily rehabilitation, strengthening, prior to discharge home with . HPI Narrative 03/24/2022 VIRGIL COLINDRES, is a 81 Male who presents to [facility] Emergency Department with fall. Fell, going up [address] brain showed hemorrhagic contusion, focal subarachnoid hemorrhage. Confused. Transfer to [facility]. 03/24/[address] [facility] ICU. On aspirin, plavix for coronary artery disease, carotid artery stenosis, lacunar infarcts. Subarachnoid hemorrhage, hemorrhagic contusion left frontal, temporal lobes. Neuro checks every hour. Keppra for seizure prophlaxis. Consult Neurosurgery. Hold Aspirin, Plavix. Surgery not recommended. 03/31/2022 Admit to [facility] for 3 hours daily rehabilitation, strengthening, prior to discharge home with . [facility] Medical History Abnormal EKG ALS (amyotrophic lateral sclerosis) ALS (amyotrophic lateral sclerosis) Atherosclerotic heart disease of [place] coronary artery without angina pectoris Atrial arrhythmia Chest pain Dizziness and giddiness Essential hypertension Family history of hypertension Fatigue Hyperlipidemia Hypertension Long-term use of high-risk medication Palpitations Premature atrial contractions Premature ventricular contraction Unstable angina Home Medications aspirin 81 mg tablet,delayed release 81 mg PO QDAY heart health 07/22/17 [History Last Taken Unknown] omega-3 fatty acids 1,000 mg capsule 1,000 mg PO QDAY Check with primary doctor 07/22/17 [History Last Taken Unknown] latanoprost 0.005 % eye drops 1 drp LEFT EYE QHS Check with primary doctor 04/15/20 [History Last Taken 03/30/22 21:00] timolol maleate 0.5 % eye drops 1 drp LEFT EYE DAILY Check with primary doctor 75 days #5 mL 04/15/20 [History Last Taken 03/31/22 09:00] ascorbic acid (vitamin C) 500 mg tablet 500 mg PO DAILY Check with primary doctor 10/09/21 [History Last Taken Unknown] clopidogrel 75 mg tablet 75 mg PO QDAY #90 tabs 01/19/22 [Rx Last Taken Unknown] beclomethasone diprop (AQ) 42 mcg (0.042 %) nasal spray 1 spray intranasal BID Check with primary doctor 03/31/22 [History Last Taken Unknown] cholecalciferol (vitamin D3) 10 mcg/mL (400 unit/mL) oral drops (D-Vi-Sahra) 10 mcg PO DAILY Check with primary doctor 03/31/22 [History Last Taken Unknown] diphenhydramine HCl 25 mg capsule (Benadryl) 25 mg PO QHS PRN Sleep 03/31/22 [History Last Taken Unknown] latanoprost 0.005 % eye drops 1 drp RIGHT EYE QHS Check with primary doctor 03/31/22 [History Last Taken 03/30/22 21:00] levetiracetam 500 mg tablet (Keppra) 500 mg PO BID Check with primary doctor 03/31/22 [History Last Taken Unknown] losartan 25 mg tablet 25 mg PO DAILY BP 03/31/22 [History Last Taken Unknown] lovastatin 40 mg tablet 40 mg PO QPM Check with primary doctor 03/31/22 [History Last Taken Unknown] riluzole 50 mg tablet 50 mg PO .COMPLEX ALS 03/31/22 [History Last Taken 03/31/22 06:00] Allergy/AdvReac Type Severity Reaction Status Date / Time nitroglycerin AdvReac Severe Low BP, Verified 03/24/22 22:11 near syncope Family History Father Myocardial infarction CAD (coronary artery disease) Surgical History History of repair of rotator cuff Hx of appendectomy Presence of stent in coronary artery (~08/2014) Social History (Updated 03/31/22 @ 22:[address] Arias Cosby MD) household members: spouse Smoking Status: Never smoker how long ago did patient quit smokin years ago second hand exposure: No alcohol intake: current alcohol intake frequency: 0-2 drinks per day Alcohol type: wine and hard liquor substance use type: does not use caffeine: Yes Type: coffee Number of servings: 1 ROS Constitutional Constitutional: Denies chills, fever(s) or weight gain ENT HEENT: Denies headache(s), nasal congestion or nasal discharge Cardiovascular Cardiovascular: Denies chest pain or palpitations Respiratory/Chest Respiratory/Chest: Denies cough, excessive phlegm production or shortness of breath with exertion Gastrointestinal Gastrointestinal: Denies abdominal pain, nausea or vomiting Genitourinary Genitourinary: Denies dysuria Musculoskeletal Musculoskeletal: Denies joint pain or joint swelling Integumentary Integumentary: Denies rash or wounds Neurologic Neurologic: Denies focal weakness, numbness or tingling Psychiatric Psychiatric: Denies anxiety, auditory hallucinations, depression, homicidal ideation or suicidal ideation Vital Signs Vital Signs Vital Signs: 03/31/22 14:47 03/31/22 17:10 03/31/22 19:27 Temperature 97.5 F L 97.6 F L Temperature Source Temporal Oral Pulse Rate 63 63 Respiratory Rate 16 16 Blood Pressure 104/68 104/68 Blood Pressure Mean 80 80 Blood Pressure Source Monitor Monitor Blood Pressure Position Semi-Fowlers Semi-Fowlers Blood Pressure Location Right Arm Right Arm Pulse Ox 98 98 98 Oxygen Delivery Method Room Air Room Air Room Air Weight Weight: 57.606 kg Body Mass Index (BMI) 18.2 Indicators for Scoring Admitted with or Primary Diagnosis of CVA/Stroke: No Hx of CVA/Stroke: No Physical Exam Const alert General Appearance: cooperative HEENT normocephalic Eyes PERRL and EOMs intact bilaterally Neck supple, no JVD and no carotid bruits Resp normal respiratory effort, normal air movement and clear to auscultation bilaterally Cardio regular rate and regular rhythm GI normal to inspection, nondistended, normoactive bowel sounds, non-tender and non-distended Extremity normal capillary refill General Extremity: Negative for edema Skin no rashes or lesions noted General Skin Exam: no breakdown Psych affect normal Appearance: appropriate Assessment & Plan Assessment/Plan (1) Debility: (2) Traumatic cerebral hemorrhage: (3) Subarachnoid hemorrhage: (4) ALS (amyotrophic lateral sclerosis): (5) Glaucoma: (6) Coronary artery disease: (7) Hypertension: (8) Hyperlipidemia: PLAN: Plan 81 year old male with below past medical history significant for ALS, hospitalized after fall, hemorrhagic brain contusion, subarachnoid hemorrhage, treated conservatively, admitted to [facility] for 3 hours daily rehabilitation, strengthening, prior to discharge home with . * Debility - PT/OT. * Cognition - ST. * Pain - Tylenol 650mg q6h prn pain (1-10). * Bowel - senna/colace 2 tablets bid, Dulcolax 10mg pr x1 prn, MOM 30ml po x 1 prn. * Vitamin C deficiency - Vitamin C 500mg daily. * Coronary artery disease - Losartan 50mg daily, Aspirin 81mg daily to start , Plavix 75mg daily to start 04/10/2022. * Hyperlipidemia - Atorvastatin 20mg qhs, [place] 3 1gm daily. * Allergic rhinitis - Flonase 2 sprays nasal daily. * Glaucoma - Latanoprost 1gtt od every other day, 1 gtt os qhs, Timolol 1gtt os daily. * Seizure prophylaxis - Keppra 500mg bid. * ALS - Riluzole 50mg bid.
[2022-03-31] MEDS: Senna/Docusate Sodium 1 Tablet 2 TABLET PO (22:17)
[2022-03-31] MEDS: Atorvastatin Calcium 20 MG Tablet PO (22:18)
[2022-03-31] MEDS: Acetaminophen 325 MG Tablet 650 MG PO (22:18)
[2022-03-31] MEDS: levETIRAcetam 500 MG Tablet PO (22:18)
[2022-03-31] MEDS: Latanoprost 0.005% 1 Bottle 1 DRP LEFT EYE (22:19)
[2022-03-31 22:20] VITALS: PULSE 63; RESP 16; O2SAT 98
[2022-03-31] MEDS: RILUZOLE 50 MG TABLET PO (22:20)
--- NOTE | 2022-04-01 00:19 | NURSING ---
Pt c/o 10/10 headache pain and Tylenol 650mg Q6H/PRN provided @ 22:18. Upon assessment, pt reports not much relief. This RN alerted, Hospitalist, Dr Harinder Leach, a message via [employer] and a x1 dose of 5mg OXYIR n/o was added to MAR by Hospitalist. Cool wash cloth provided for left side of face as well.
[2022-04-01] MEDS: oxyCODONE 5 MG Tablet PO ×3 (00:38→21:06)
--- NOTE | 2022-04-01 03:54 | NURSING ---
REVIEWED AND AGREE WITH Debbie ANDRE LPN, DOCUMENTATION AND ASSESSMENT CHARTING.
[2022-04-01 05:41] LABS: Absolute Lymphocyte Count 1.78 X10^3/uL (0.83-4.51); Absolute Neutrophil Count 3.3 X10^3/uL (2.0-7.7); Basophil# 0.07 X10^3/uL; Basophil% 1.2 % (0-1); Eosinophil# 0.34 X10^3/uL; Eosinophils% 5.8 % (0-5); Hemoglobin 11.8 g/dL (13.0-16.5); Lymphocyte # 1.78 X10^3/ul (0.83-4.51); Lymphocyte % 30.2 % (19-41); Mean Corp Hgb Conc 35.8 g/dL (32-36); Mean Corpuscular Hgb 33.8 pg (27.0-32.0); Mean Corpuscular Volume 94.6 fL (80-94); Mean Platelet Vol. 8.6 fl (6.2-12.0); Monocyte# 0.41 X10^3/uL; Monocyte% 6.9 % (0-10); NRBC Flagged by Analyzer 0 % (0-5); Neutrophil # 3.29 X10^3/uL (2.7-7.7); Neutrophil % 55.7 % (47-70); Platelet Count 213 K/mm3 (150-450); RBC Distribution Width CV 12.2 % (11.6-14.6); RBC Distribution Width SD 42.2 fl (35.1-43.9); Red Blood Count 3.49 M/mm3 (4.6-6.2); White Blood Count 5.9 K/mm3 (4.4-11.0)
[2022-04-01 06:12] LABS: ALB/GLOB Ratio 0.9 RATIO (0.9-2.4); AST(SGOT) 22 U/L (15-37); Alanine Aminotransfer ALT/SGPT 26 U/L (16-61); Albumin, Serum 3.3 g/dL (3.2-5.0); Alkaline Phosphatase 58 U/L (45-117); Anion Gap 7 (5-15); BUN 12 mg/dL (7-18); BUN/Creat Ratio 25.5 RATIO (10-20); Calcium,Total 8.9 mg/dL (8.5-10.1); Chloride 103 mmol/L (98-107); Creatinine, Serum 0.47 mg/dL (0.70-1.30); EST Glomerular Filtration Rate 182 mL/min (>60); Est Glom Filt Rate - Afr Amer 220 mL/min (>60); Estimated Creatinine Clearance 48.01 ml/min; Globulin 3.5 g/dL (2.2-4.2); Glucose 75 mg/dL (74-106); Magnesium 2.3 mg/dL (1.6-2.6); Phosphorus 3.1 mg/dL (2.5-4.9); Potassium 3.9 mmol/L (3.5-5.1); Protein, Total 6.8 g/dL (6.4-8.2); Sodium Level 137 mmol/L (136-145)
[2022-04-01] MEDS: Timolol 0.5% 5ML OPTH.BTL 1 DRP LEFT EYE (07:57)
[2022-04-01] MEDS: levETIRAcetam 500 MG Tablet PO ×2 (07:58→20:59)
[2022-04-01] MEDS: Senna/Docusate Sodium 1 Tablet 2 TABLET PO ×2 (07:59→21:00)
[2022-04-01] MEDS: Fluticasone 0.05% 1 SPRAY NASAL.SRY 2 SPRAY NASAL (07:59)
[2022-04-01] MEDS: Ascorbic Acid 500 MG Tablet PO (07:59)
[2022-04-01] MEDS: Omega-3 Acid Ethyl Esters 1 GM Capsule PO (07:59)
[2022-04-01] MEDS: Losartan Potassium 25 MG Tablet PO (08:03)
[2022-04-01 09:16] VITALS: BP 136/62; PULSE 94; RESP 15; TEMP 36
[2022-04-01 10:00] VITALS: BP 126/71; PULSE 75; RESP 15; TEMP 36.4; O2SAT 95
--- NOTE | 2022-04-01 10:28 | PCM.PROGNOTE ---
Subjective Subjective Patient seen, examined. Overnight, he had headache, Tylenol was not helpful. Oxycodone 5mg was given, and it was helpful, will add as PRN pain medications. He appears well, good spirits, he is sitting up in chair, ready to eat breakfast. Objective Data Objective Data Vital Signs: Vital Signs Temp Pulse Resp BP Pulse Ox O2 Del Method 97.6 F L 75 15 126/71 H 95 Room Air 04/01/22 10:00 04/01/22 10:00 04/01/22 10:00 04/01/22 10:00 04/01/22 10:00 04/01/22 10:00 Oxygen Delivery Method Room Air Weight: 57.606 kg Body Mass Index (BMI) 18.2 Intake & Output: Intake and Output for Last 24 Hours 03/30/22 03/31/22 04/01/22 23:59 23:59 23:59 Intake Total 100 / 100 Balance 100 / 100 Lab / Micro Data Result Diagrams: 04/01/22 05:35 04/01/22 05:35 Labs: Laboratory Results - last 24 hr 04/01/22 05:35: WBC 5.9, RBC 3.49 L, Hgb 11.8 L, Hct 33.0 L, MCV 94.6 H, MCH 33.8 H, MCHC 35.8, RDW Std Deviation 42.2, RDW Coeff of Amanda 12.2, Plt Count 213, MPV 8.6, Immature Gran % (Auto) 0.200, Neut % (Auto) 55.7, Lymph % (Auto) 30.2, [place] % (Auto) 6.9, Eos % (Auto) 5.8 H, Baso % (Auto) 1.2 H, Absolute Neuts (auto) 3.3, Absolute Lymphs (auto) 1.78, Nucleated RBC % 0 04/01/22 05:35: Sodium 137, Potassium 3.9, Chloride 103, Carbon Dioxide 27.0, Anion Gap 7, BUN 12, Creatinine 0.47 L, Estim Creat Clear Calc 48.01, Est GFR (MDRD) Af Amer 220, Est GFR (MDRD) Non-Af 182, BUN/Creatinine Ratio 25.5 H, Glucose 75, Calcium 8.9, Phosphorus 3.1, Magnesium 2.3, Total Bilirubin 1.10 H, AST 22, ALT 26, Alkaline Phosphatase 58, Total Protein 6.8, Albumin 3.3, Globulin 3.5, Albumin/Globulin Ratio 0.9 Physical Exam Const alert General Appearance: cooperative HEENT normocephalic Eyes PERRL and EOMs intact bilaterally Neck supple, no JVD and no carotid bruits Resp normal respiratory effort, normal air movement and clear to auscultation bilaterally Cardio regular rate and regular rhythm GI normal to inspection, nondistended, normoactive bowel sounds, non-tender and non-distended Extremity normal capillary refill General Extremity: Negative for edema Skin no rashes or lesions noted General Skin Exam: no breakdown Psych affect normal Appearance: appropriate Assessment & Plan Assessment/Plan (1) Debility: (2) Traumatic cerebral hemorrhage: (3) Subarachnoid hemorrhage: (4) ALS (amyotrophic lateral sclerosis): (5) Glaucoma: (6) Coronary artery disease: (7) Hypertension: (8) Hyperlipidemia: PLAN: Plan 81 year old male with below past medical history significant for ALS, hospitalized after fall, hemorrhagic brain contusion, subarachnoid hemorrhage, treated conservatively, admitted to [facility] for 3 hours daily rehabilitation, strengthening, prior to discharge home with . Debility - PT/OT. Cognition - ST. Pain - Tylenol 1000mg q6h prn pain (1-5), Oxycodone 5mg q4h prn pain (6-10). Bowel - senna/colace 2 tablets bid, Dulcolax 10mg pr x1 prn, MOM 30ml po x 1 prn. Vitamin C deficiency - Vitamin C 500mg daily. Coronary artery disease - Losartan 50mg daily, Aspirin 81mg daily to start 04/10/2022, Plavix 75mg daily to start 04/10/2022. Hyperlipidemia - Atorvastatin 20mg qhs, [place] 3 1gm daily. Allergic rhinitis - Flonase 2 sprays nasal daily. Glaucoma - Latanoprost 1gtt od every other day, 1 gtt os qhs, Timolol 1gtt os daily. Seizure prophylaxis - Keppra 500mg bid. ALS - Riluzole 50mg bid. Capacity Capacity Assessment Tool Can the patient make a choice & communicate that choice?: Yes Can the patient understand benefits, risks and alternatives?: Yes Can the patient make a logical, rational choice?: Yes Is the choice the patient makes consistent w/ their values?: Yes Is there an impending, emergent risk to the patient?: No Does the patient have an Advance Directive?: No Is there a Surrogate Available?: Yes i.e. HCPOA: Yes i.e. close relative (spouse, child, parent, sibling)?: Yes
[2022-04-01] MEDS: RILUZOLE 50 MG TABLET PO ×2 (11:18→21:00)
--- NOTE | 2022-04-01 19:21 | REHABEVAL_ITS ---
Admission Information Primary Diagnosis:: Subarachnoid hemorrhage. Status Changes from Prescreening?: No changes Identified Actual Problem List:: Falls, Pain, ALteration in Cmfrt, Cognitve Impr/Memory Loss, Alteration in Sleep, Mobility Impaired, Self Care Deficit, Ineffective Communication, Know.Dfct/Disease Process and Alteration-Leisure Activ. Potential Problem List:: DVT, Bleeding, Infection, UTI, Aspiration, Falls, Skin Integrity and Depression Risk of Complications DVT: MARCELLA Parker Bleeding: Monitor Lab Values, Nursing to Teach Precautions for anti-coagulation therapy. and Stroke patients assessed for lethargy or change in status. Infection: Clinical Staff to Monitor for S/S of infection: and S/S of infection include fever, redness, warmth, etc. Urinary Tract Infection: Monitor for frequency, burning, discomfort, or incontinence. and Nursing will obtain urine sample for urinalysis and C&S when ordered. Aspiration: Clinical staff will monitor for coughing, drooling, congestion., Speech will evaluate swallowing and dsyphasia. and Nursing will monitor patient swallowing during meals. Falls: Patient will be evaluated for Fall Precautions and Patient will be placed on Fall Precautions as indicated per protocol. Skin Breakdown: Nursing will assess skin daily using assessment tool. and Nursing will place on Skin Breakdown Precautions as indicated. Pain: Clinical staff will assess patient's pain level per protocol., Medications will be given, if needed, and the pain level reassessed. and Other methods: Massage, distraction, decrease stimulus, etc. used PRN. Plan of Care Patient requires physician specializing in physical medicine and rehab oversight to provide close medical supervision of rehab issues including: Pain Management, Sleep Problems, Bowel and Bladder, Medical and co-morbidity Management, DVT prophylaxis, Rehabilitation Leadership and Coordination of treatment team Patient needs Physical Therapy: For a minimum of 1 hour and At least 5 out of 7 days Patient needs Physical Therapy to improve:: Mobility, Strengthening, Transfers, Stretching, ROM, Endurance, Stairs, Gait and Balance Patient needs Occupational Therapy: For a minimum of 1 hour and At least 5 out of 7 days Patient needs Occupational Therapy to improve ADL's incl.: Eating, Grooming, Bathing, Dressing, Toileting, Toilet transfers, Higher functioning activities, Household tasks, Adaptive Equipment and Other activities as determined Patient requires speech therapy: For a minimum of 1 hour and At least 5 out of 7 days Patient requires speech therapy for: Swallowing, Cognition, Language Skills and Compensatory Strategies Patient requires 24/7 Rehabilitation Nursing for: Pain Issues, Identifying and preventing risk factors, Monitoring and reporting current medical conditions, Assisting with ambulation, transfer, and all ADL's, Teaching patients about disease process and medications, Family teaching, Providing safe environment, Bowel and Bladder Issues, Skin integrity and Medication Management Patient needs Assembler Latches [employer] Springs/ Case Management for: Discharge Planning, Arranging Home Equipment or Services and Family Interventions Patient needs Dietary and Nutrition Services for: Adequate Nutrition, Nutritional Supplements and Nutritional Education Goals Patient will remain: free from falls and or injury at time of discharge. Patient will perform bed mobility at: MOD I level of assist. Patient will complete transfers from bed to chair at: Standby Assist. Patient will ambulate: - (80 feet CGA.) Patient will complete upper body dressing at: MOD I level of assist. Patient will complete lower body dressing at: MOD I level of assist. Patient will complete toileting at: MOD I level of assist. Patient will perform bathing at: MOD I level of assist. Patient will complete grooming at: MOD I level of assist. Patient will complete home management skills at: MOD I level of assist. Patient will achieve: at MOD I assist Patient will have pain level of: of 3 or less Patient's skin will: remain intact and free from infection. Patient will receive: adequate nutrition. Discharge Planning Pt Prognosis for Sig. Practical Improv. w/in Reasonable Time: Good Estimated Length of stay (days): 14 Anticipated D/C Destination: Home with Home Health Was Preadmission Assessment Accurate?: Yes
[2022-04-01 19:27] VITALS: BP 103/56; PULSE 68; RESP 15; TEMP 36.2; O2SAT 98
[2022-04-01 21:00] VITALS: PULSE 68; RESP 15
[2022-04-01] MEDS: Ensure Plus High Protein 120 ML LIQUID PO (21:00)
[2022-04-01] MEDS: Atorvastatin Calcium 20 MG Tablet PO (21:00)
[2022-04-01] MEDS: Latanoprost 0.005% 1 Bottle 1 DRP LEFT EYE (21:00)
[2022-04-01] MEDS: Latanoprost 0.005% 1 Bottle 1 DRP RIGHT EYE (21:02)
[2022-04-01] MEDS: Acetaminophen 500 MG Tablet 1000 MG PO (21:05)
--- NOTE | 2022-04-02 01:48 | NURSING ---
Reviewed and agree with ARCHITECTURE DRAFTER documentation and assessment charting.
[2022-04-02 07:25] VITALS: BP 92/56; PULSE 61; RESP 15; TEMP 35.6; O2SAT 94
[2022-04-02] MEDS: oxyCODONE 5 MG Tablet PO ×2 (08:17→22:23)
[2022-04-02] MEDS: Acetaminophen 500 MG Tablet 1000 MG PO ×2 (08:17→22:24)
[2022-04-02 08:40] VITALS: O2SAT 96
[2022-04-02] MEDS: Losartan Potassium 25 MG Tablet PO (09:14)
[2022-04-02] MEDS: levETIRAcetam 500 MG Tablet PO ×2 (09:14→22:27)
[2022-04-02] MEDS: Fluticasone 0.05% 1 SPRAY NASAL.SRY 2 SPRAY NASAL (09:14)
[2022-04-02] MEDS: Omega-3 Acid Ethyl Esters 1 GM Capsule PO (09:15)
[2022-04-02] MEDS: Ascorbic Acid 500 MG Tablet PO (09:15)
--- NOTE | 2022-04-02 09:15 | RAD_ITS ---
STUDY: X-RAY CHEST REASON FOR EXAM: Male, 81 years old. c/o sob TECHNIQUE: AP and lateral views of the chest. COMPARISON: Comparison is made with prior study dated 02/09/2011. FINDINGS: Hyperinflation. The lungs are clear. There is no demonstrated pleural abnormality. Normal size heart. Normal mediastinum and shyla. Normal visualized pulmonary arteries. There is atherosclerotic calcification of the aortic arch with tortuosity. There is demineralization of the osseous structures. Normal visualized ribs, clavicles, and shoulders. There is no demonstrated abnormality of the visualized soft tissue structures of the upper abdomen. RAD/Chest PA and Lateral IMPRESSION: Hyperinflation. The lungs are clear. Electronically Signed: Dylan Altman MD at 14:33 EDT ,
[2022-04-02] MEDS: Senna/Docusate Sodium 1 Tablet 2 TABLET PO ×2 (09:16→22:25)
[2022-04-02] MEDS: Timolol 0.5% 5ML OPTH.BTL 1 DRP LEFT EYE (09:16)
[2022-04-02] MEDS: Ensure Plus High Protein 120 ML LIQUID PO ×2 (09:17→22:27)
[2022-04-02] MEDS: RILUZOLE 50 MG TABLET PO ×2 (09:43→22:25)
--- NOTE | 2022-04-02 11:10 | CASEMGMT ---
Addendum entered by Pilar Mariee 04/02/22 14:10: Spoke at length with dtr to answer questions, educate to resources, discharge options, insurance coverage in different levels of care, assistance in the home, PLOF and home set up. Dtr explained, from her perspective, pt was having difficulty properly caring for himself; noted to having poor hygiene. There are two hired caregivers in the home M-F to assist with any tasks pt or have that day, including housekeeping and meals, from 9am-1pm. Caregivers offer to assist pt with personal care, but pt does not use the assistance. Per dtr, pt is very stubborn and wants to keep his independence. However, dtr, siblings and all concerned about how pt can return home without allowing the 24/7 assistance. is not able to physically care for pt - she has health conditions and is frail herself. Family has discussed AL with pt and , but inquired about other options. SW emailed resources to dtr along with verbal education: [facility] adult [facility] services, [facility], support groups, nonskilled INDUSTRIAL PHOTOGRAPHER, [email or web address], medical alerts, transportation. Emailed via [facility] AL and SNF providers including quality and resource data that are in desired location for dtr and family to review. Dtr states pt is able to pay privately for assistance for some time, but son, Toney, manages the finances. Dtr expressed great appreciation for time and information from this worker. SW to continue to follow for ongoing assistance with DC planning and support. Original Note: Social Work IDT met with patient and dtr via conference for Team meeting. Discussed patient's progress in PT/OT/ST/SN. Educated to Medicare approval of 16 days with DC 04/16. Pts goal is to return home with . Chart/pt hx unclear of PLOF and assistance in the home. SW to investigate further with dtr. Will Reteam next week. SW left message with dtr to receive further details on pt's hx. SW to continue to follow. Pilar Mariee, ARSLAN BACK END ENGINEER
[2022-04-02 19:12] VITALS: BP 102/48; PULSE 59; RESP 15; TEMP 36.8; O2SAT 97
--- NOTE | 2022-04-02 19:16 | PN_ITS ---
Subjective Subjective Patient seen, examined on IDT rounds. He continues to have headaches but mostly controlled with Tylenol Oxycodone. shift stacker noted patient has lack of appetite, and patient admits to lack of appetite, we discussed adding Mirtazapine and patient okay with that. Also, he has been hypotensive, will stop Losartan. Objective Data Objective Data Vital Signs: Vital Signs Temp Pulse Resp BP Pulse Ox O2 Del Method 98.2 F 59 L 15 102/48 L 97 Room Air 04/02/22 19:12 04/02/22 19:12 04/02/22 19:12 04/02/22 19:12 04/02/22 19:12 04/02/22 19:12 Oxygen Delivery Method Room Air Weight: 57 kg Body Mass Index (BMI) 18.2 Intake & Output: Intake and Output for Last 24 Hours 03/31/22 04/01/22 04/02/22 23:59 23:59 23:59 Intake Total 100 / 100 440 / 440 240 / 240 Output Total 100 / 100 100 / 100 Balance 100 / 100 340 / 340 140 / 140 Medical Nutrition Assessment Dietitian: Malnutrition Criteria Met Start: 04/01/22 13:21 Freq: Status: Active Protocol: Document 04/01/22 13:21 RMA (Rec: 04/01/22 13:22 RMA [id number]) Nutrition Malnutrition Evidence of Malnutrition Exists Yes Malnutrition (severe): Acute Illness/Injury,Chronic Evidenced By Suboptimal Energy Intake ( Severe),Weight Loss (Severe), Physical Changes (Severe) Clinical Problem Chronic Disease or Condition Related Malnutrition Etiology Severe protein-calorie malnutrition in the context of acute on chronic disease related to inadequate oral intake and difficulty swallowing Signs/Symptoms as evidenced by oral intake meeting less than 50% estimated nutrition needs x past 1-2 weeks, muscle/fat wasting in the orbitals, face, clavicle, arms and legs, BMI 18.2, refusing meals and ~10% wt loss x past less than 2 weeks Status Active Problem Recommendation Dietitian Recommendations/Changes Continue regular diet with consistency/texture as per PRODUCE SHIPPER . Will add ensure pudding w/ breakfast and magic cup w/ lunch and dinner. Will add 120 ml ensure plus high protein 4 times per day w / medpass. May need to consider enteral nutrition support if PO remains poor/inadequate and weight continues to decline. Lab / Micro Data Result Diagrams: 04/01/22 05:35 04/01/22 05:35 Radiography Diagnostic Testing: Radiology Impression Chest X-Ray 04/02/22 09:15 IMPRESSION: Hyperinflation. The lungs are clear. Electronically Signed: Dylan Altman MD at 14:33 EDT , Physical Exam Const alert General Appearance: cooperative HEENT normocephalic Eyes PERRL and EOMs intact bilaterally Neck supple, no JVD and no carotid bruits Resp normal respiratory effort, normal air movement and clear to auscultation bilaterally Cardio regular rate and regular rhythm GI normal to inspection, nondistended, normoactive bowel sounds, non-tender and non-distended Extremity normal capillary refill General Extremity: Negative for edema Skin no rashes or lesions noted General Skin Exam: no breakdown Psych affect normal Appearance: appropriate Assessment & Plan Assessment/Plan (1) Debility: (2) Traumatic cerebral hemorrhage: (3) Subarachnoid hemorrhage: (4) ALS (amyotrophic lateral sclerosis): (5) Glaucoma: (6) Coronary artery disease: (7) Hypertension: (8) Hyperlipidemia: PLAN: Plan 81 year old male with below past medical history significant for ALS, hospitalized after fall, hemorrhagic brain contusion, subarachnoid hemorrhage, treated conservatively, admitted to [facility] for 3 hours daily rehabilitation, strengthening, prior to discharge home with . * Debility - PT/OT. * Cognition - ST. * Pain - Tylenol 1000mg q6h prn pain (1-5), Oxycodone 5mg q4h prn pain (6-10). * Bowel - senna/colace 2 tablets bid, Dulcolax 10mg pr x1 prn, MOM 30ml po x 1 prn. * Vitamin C deficiency - Vitamin C 500mg daily. * Coronary artery disease - Stop Losartan due to hypotension, Aspirin 81mg daily to start 04/10/2022, Plavix 75mg daily to start 04/10/2022. * Hyperlipidemia - Atorvastatin 20mg qhs, [place] 3 1gm daily. * Allergic rhinitis - Flonase 2 sprays nasal daily. * Glaucoma - Latanoprost 1gtt od every other day, 1 gtt os qhs, Timolol 1gtt os daily. * Seizure prophylaxis - Keppra 500mg bid. * ALS - Riluzole 50mg bid. * Appetite loss/depression - Rx Mirtazapine 7.5mg qhs. Capacity Capacity Assessment Tool Can the patient make a choice & communicate that choice?: Yes Can the patient understand benefits, risks and alternatives?: Yes Can the patient make a logical, rational choice?: Yes Is the choice the patient makes consistent w/ their values?: Yes Is there an impending, emergent risk to the patient?: No Does the patient have an Advance Directive?: No Is there a Surrogate Available?: Yes i.e. HCPOA: Yes i.e. close relative (spouse, child, parent, sibling)?: Yes
[2022-04-02] MEDS: Latanoprost 0.005% 1 Bottle 1 DRP LEFT EYE (22:25)
[2022-04-02] MEDS: Atorvastatin Calcium 20 MG Tablet PO (22:26)
[2022-04-02] MEDS: Mirtazapine 15 MG Tablet 7.5 MG PO (22:26)
[2022-04-03] MEDS: Magnesium Hydroxide 30 ML UDC PO (07:12)
[2022-04-03] MEDS: Senna/Docusate Sodium 1 Tablet 2 TABLET PO ×2 (07:29→23:00)
[2022-04-03] MEDS: Omega-3 Acid Ethyl Esters 1 GM Capsule PO (07:30)
[2022-04-03] MEDS: Timolol 0.5% 5ML OPTH.BTL 1 DRP LEFT EYE (07:30)
[2022-04-03] MEDS: Fluticasone 0.05% 1 SPRAY NASAL.SRY 2 SPRAY NASAL (07:30)
[2022-04-03] MEDS: levETIRAcetam 500 MG Tablet PO ×2 (07:30→22:59)
[2022-04-03] MEDS: Ascorbic Acid 500 MG Tablet PO (07:30)
[2022-04-03 08:00] VITALS: BP 112/52; PULSE 61; RESP 16; TEMP 36.5; O2SAT 95
[2022-04-03] MEDS: RILUZOLE 50 MG TABLET PO ×2 (10:24→23:01)
[2022-04-03] MEDS: Ensure Plus High Protein 120 ML LIQUID PO ×3 (10:25→23:03)
--- NOTE | 2022-04-03 14:15 | PCM.PROGNOTE ---
Subjective Subjective I reviewed Dr. Cosby's H&P. Patient is an 81-year-old male admitted to rehab on 03/31/2022 for debility related to a fall while going up 2 steps into his house. He sustained a focal subarachnoid hemorrhage and a parenchymal hemorrhages of the left frontal and temporal lobes of the brain. He was on aspirin and Plavix for coronary artery disease, carotid artery stenosis and lacunar infarcts at the time of the fall. His past medical history is significant for ALS, CAD, hypertension, hyperlipidemia, lacunar infarcts, dementia? And glaucoma. He follows with Dr. Hurd for ALS and was last seen in September of 2021. At that time he was able to raise his hands with some difficulty to feed himself. He was able to hold a cup using both hands and was able to use a fork. He was unable to use a knife. He had occasional swallowing difficulty and was at that time on a soft diet. He had minimal weakness in his lower extremities and was able to ambulate on a flat surface independently. He scored 27 out of 30 on a Mini-Mental status exam and had some difficulty with word finding, repeating himself, recalling names, bill paying. I reviewed his last cardiology visit with Dr. Braun. At that time he had no peripheral edema and his last echocardiogram was in 2014 and at that time the estimated ejection fraction was 60%. The RV pressure was estimated at 27. There was a suggestion of diastolic dysfunction. Afebrile VSS Maintaining appropriate oxygen saturation on RA-94 to 98%. Oral intake is poor, oral intake recorded for the past 3 days has been less than 500 cc daily. The weight on 04/01/2022 was 125 pounds and 11 ounces which is down from 143 pounds and 3 ounces in September 2021. Discussed with nursing - His feeds him at home. He wants to eat at 7 PM every night and if it is not at 7 PM he declines to eat. Fairly inflexible per nursing. He has had only 1 bladder scan since admission and that was 0. He did not complete his multimedia production assistant with PT today because he wanted to go back to his room. Therapy and nursing are having to cajole him into eating, dressing, doing therapy. Reviewed the PT/OT/ST notes - Has not been getting 3 hours of therapy in daily. He c/o being too tired after 40 minutes of PT this AM and when they returned this afternoon to do the other 20 minutes he refused. He did get 60 minutes of PT in yesterday and he did 60 minutes of OT this AM. He is requiring a lot of assistance to dress and bath. UE's considerably weaker than the LE's. Medication list reviewed. He was started on Remeron [address] Cosby for depression. Chest x-ray on 04/02/2022 was normal. Lab from 04/01/2022 showed a normal white blood cell count with a hemoglobin of 11.8 and normal platelets. Chemistries showed an elevated BUN/creatinine ratio at 25.5. Creatinine was 0.47. He denies CP, SOB, dysuria, abd pain, N/V. Denies feeling depressed, not tearful. Not anxious. Objective Data Objective Data Vital Signs: Vital Signs Temp Pulse Resp BP Pulse Ox O2 Del Method 97.7 F L 61 16 112/52 L 95 Room Air 04/03/22 08:00 04/03/22 08:00 04/03/22 08:00 04/03/22 08:00 04/03/22 08:00 04/03/22 10:00 Oxygen Delivery Method Room Air Weight: 125 lb 10.616 oz Body Mass Index (BMI) 18.2 Intake & Output: Intake and Output for Last 24 Hours 04/01/22 04/02/22 04/03/22 23:59 23:59 23:59 Intake Total 440 / 440 240 / 240 340 / 340 Output Total 100 / 100 275 / 275 200 / 200 Balance 340 / 340 -35 / -35 140 / 140 Medical Nutrition Assessment Dietitian: Malnutrition Criteria Met Start: 04/01/22 13:21 Freq: Status: Active Protocol: Document 04/01/22 13:21 RMA (Rec: 04/01/22 13:22 RMA [id number]) Nutrition Malnutrition Evidence of Malnutrition Exists Yes Malnutrition (severe): Acute Illness/Injury,Chronic Evidenced By Suboptimal Energy Intake ( Severe),Weight Loss (Severe), Physical Changes (Severe) Clinical Problem Chronic Disease or Condition Related Malnutrition Etiology Severe protein-calorie malnutrition in the context of acute on chronic disease related to inadequate oral intake and difficulty swallowing Signs/Symptoms as evidenced by oral intake meeting less than 50% estimated nutrition needs x past 1-2 weeks, muscle/fat wasting in the orbitals, face, clavicle, arms and legs, BMI 18.2, refusing meals and ~10% wt loss x past less than 2 weeks Status Active Problem Recommendation Dietitian Recommendations/Changes Continue regular diet with consistency/texture as per INTEGRATION ASSISTANT . Will add ensure pudding w/ breakfast and magic cup w/ lunch and dinner. Will add 120 ml ensure plus high protein 4 times per day w / medpass. May need to consider enteral nutrition support if PO remains poor/inadequate and weight continues to decline. Lab / Micro Data Result Diagrams: 04/01/22 05:35 04/01/22 05:35 Radiography Diagnostic Testing: Radiology Impression Chest X-Ray 04/02/22 09:15 IMPRESSION: Hyperinflation. The lungs are clear. Electronically Signed: Dylan Altman MD at 14:33 EDT , Physical Exam Const alert Constitutional Narrative: We had a conversation and he made good eye contact during that conversation. He wants to go home. Admits to having falls at home. HEENT normocephalic HEENT Narrative: No facial asymmetry. Eyes PERRL Neck No nuchal rigidity Resp normal respiratory effort and clear to auscultation bilaterally Resp Narrative: Diminished, linh in the bases. No cough. Cardio regular rate, regular rhythm and no gallops GI normal to inspection, nondistended, normoactive bowel sounds, soft to palpation and non-tender GI Narrative: No guarding with palpation. Extremity General Extremity: Negative for clubbing, cyanosis or edema Skin General Skin Exam: no breakdown Rashes: no rashes Neuro CN's II-XII intact bilaterally Neuro Narrative: Weakness in the BL UE's with some wasting of the hand muscles. Unable or won't feed himself......even with built up utensils. Psych thought process normal Psych Narrative: He is not anxious, agitated, restless, ill-tempered or rude. He is trying to control the things he can at this point because he can not control the disease and he is declining. Though process is intact. Appearance: appropriate Assessment & Plan Assessment/Plan (1) Debility: (2) ALS (amyotrophic lateral sclerosis): (3) Dysphagia: (4) Dementia: (5) Premature atrial contractions: (6) Atherosclerotic heart disease of [place] coronary artery without angina pectoris: QUALIFIERS: [place] vs. transplanted heart: [place] heart Qualified Code(s): I25.10 - Atherosclerotic heart disease of [place] coronary artery without angina pectoris (7) Premature ventricular contraction: (8) Depression: PLAN: Plan 1. He is not cooperating with therapy. Will continue to monitor his progress over the weekend. If he continues to refuse therapy will need to discuss with pt and family transfer home or to an SNF where he does not need to do 3 hours of therapy daily. I suspect depression is contributing to fatigue, inanition, lack of motivation. Hopefully the Remeron will help in the coming weeks. 2. Encourage increased oral intake/fluids 3. Continue Remeron Charges/Coding Visit Charges Inpatient E&M: 10295 Subs Hosp L2
[2022-04-03 22:00] VITALS: BP 115/58; PULSE 64; RESP 16; RESP 18; TEMP 36.7; O2SAT 93
[2022-04-03] MEDS: Latanoprost 0.005% 1 Bottle 1 DRP LEFT EYE (22:58)
[2022-04-03] MEDS: Latanoprost 0.005% 1 Bottle 1 DRP RIGHT EYE (22:58)
[2022-04-03] MEDS: Mirtazapine 15 MG Tablet 7.5 MG PO (22:59)
[2022-04-03] MEDS: Atorvastatin Calcium 20 MG Tablet PO (22:59)
[2022-04-04 07:21] VITALS: BP 105/55; PULSE 68; RESP 16; TEMP 36.4; O2SAT 97
[2022-04-04] MEDS: Ensure Plus High Protein 120 ML LIQUID PO ×3 (10:21→22:39)
[2022-04-04] MEDS: Fluticasone 0.05% 1 SPRAY NASAL.SRY 2 SPRAY NASAL (10:21)
[2022-04-04] MEDS: levETIRAcetam 500 MG Tablet PO ×2 (10:22→22:41)
[2022-04-04] MEDS: Timolol 0.5% 5ML OPTH.BTL 1 DRP LEFT EYE (10:22)
[2022-04-04] MEDS: Ascorbic Acid 500 MG Tablet PO (10:22)
[2022-04-04] MEDS: Omega-3 Acid Ethyl Esters 1 GM Capsule PO (10:22)
[2022-04-04] MEDS: Senna/Docusate Sodium 1 Tablet 2 TABLET PO ×2 (10:22→22:39)
[2022-04-04] MEDS: RILUZOLE 50 MG TABLET PO ×2 (11:31→22:39)
[2022-04-04 22:00] VITALS: BP 100/52; PULSE 66; RESP 16; TEMP 37.1; O2SAT 94
[2022-04-04] MEDS: Mirtazapine 15 MG Tablet 7.5 MG PO (22:40)
[2022-04-04] MEDS: Atorvastatin Calcium 20 MG Tablet PO (22:40)
[2022-04-04] MEDS: Latanoprost 0.005% 1 Bottle 1 DRP LEFT EYE (22:41)
--- NOTE | 2022-04-05 06:45 | NURSING ---
pt had no urination throughout whole inspector and mender (7p-7a). Pt know to not urinate much. Pt bladder scanned for 235. PT was encouraged to urinate. Pt was also encouraged to get up and use bathroom, patient refused at this time.
[2022-04-05 07:22] VITALS: BP 99/46; PULSE 60; RESP 16; TEMP 36.6; O2SAT 97
[2022-04-05] MEDS: RILUZOLE 50 MG TABLET PO ×2 (07:42→21:07)
[2022-04-05] MEDS: Fluticasone 0.05% 1 SPRAY NASAL.SRY 2 SPRAY NASAL (09:53)
[2022-04-05] MEDS: Ascorbic Acid 500 MG Tablet PO (09:53)
[2022-04-05] MEDS: Senna/Docusate Sodium 1 Tablet 2 TABLET PO ×2 (09:53→21:07)
[2022-04-05] MEDS: levETIRAcetam 500 MG Tablet PO ×2 (09:53→21:08)
[2022-04-05] MEDS: Omega-3 Acid Ethyl Esters 1 GM Capsule PO (09:53)
[2022-04-05] MEDS: Timolol 0.5% 5ML OPTH.BTL 1 DRP LEFT EYE (09:54)
[2022-04-05] MEDS: Ensure Plus High Protein 120 ML LIQUID PO ×4 (09:55→21:08)
[2022-04-05 19:59] VITALS: BP 105/51; PULSE 70; RESP 16; TEMP 36.9; O2SAT 95
[2022-04-05] MEDS: Latanoprost 0.005% 1 Bottle 1 DRP LEFT EYE (21:06)
[2022-04-05] MEDS: Latanoprost 0.005% 1 Bottle 1 DRP RIGHT EYE (21:06)
[2022-04-05] MEDS: Mirtazapine 15 MG Tablet 7.5 MG PO (21:08)
[2022-04-05] MEDS: Atorvastatin Calcium 20 MG Tablet PO (21:08)
[2022-04-06] MEDS: Timolol 0.5% 5ML OPTH.BTL 1 DRP LEFT EYE (07:30)
[2022-04-06] MEDS: Fluticasone 0.05% 1 SPRAY NASAL.SRY 2 SPRAY NASAL (07:30)
[2022-04-06] MEDS: levETIRAcetam 500 MG Tablet PO (07:30)
[2022-04-06] MEDS: Ascorbic Acid 500 MG Tablet PO (07:30)
[2022-04-06] MEDS: Senna/Docusate Sodium 1 Tablet 2 TABLET PO ×2 (07:30→19:49)
[2022-04-06] MEDS: Omega-3 Acid Ethyl Esters 1 GM Capsule PO (07:30)
[2022-04-06] MEDS: oxyCODONE 5 MG Tablet PO (07:31)
[2022-04-06 07:46] VITALS: BP 146/79; PULSE 69; RESP 12; TEMP 36.5; O2SAT 96
[2022-04-06 09:34] VITALS: RESP 16; O2SAT 97
--- NOTE | 2022-04-06 10:03 | CASEMGMT ---
Addendum entered by Pilar Mariee 04/06/22 15:32: Dtr requesting referral to [facility] as well. Updated dtr [facility] cannot accept. Addendum entered by Pilar Mariee 04/06/22 11:25: Dtr requesting referral to [facility]. Referral made via [facility] Original Note: Social Work Dr. Monte requesting pt be transferred to SNF - pt is unable to withstand 3 hours of therapy daily. SW contacted dtr to discuss need for transfer and recommendations for SNF. Dtr expressed understanding and will speak with family on choices. Family discussed having pt's admit to AL so both would not be at home any longer. Educated to pt can start with SNF and then move into AL with , if appropriate, however, goal is to have pt transferred to SNF skilled. Dtr requesting referral to [facility] first then will speak with family on other options. SW made referral via [facility]. Will continue to follow. ARSLAN CarlsonW
[2022-04-06] MEDS: Ensure Plus High Protein 120 ML LIQUID PO ×4 (10:23→19:50)
[2022-04-06] MEDS: RILUZOLE 50 MG TABLET PO ×2 (10:23→19:49)
--- NOTE | 2022-04-06 10:25 | PN_ITS ---
Subjective Subjective Afebrile VSS Maintaining appropriate oxygen saturation on RA Oral intake is fair. He ate 50-74% of his breakfast.......containers half empty at conclusion of breakfast. He ate 25 to 49% of his dinner last night and he refused lunch yesterday. Discussed with nursing - Nursing reports he is having a different heart rhythm today. He refused to get dressed with nursing today and the OT had to go back 3-4 times to work with him because he said he was too tired for therapy and he just wanted to sleep. Reviewed the PT/OT/ST notes Medication list reviewed. He denies cephalgia, CP, SOB, cough, dysuria, abd pain, N/V. He did say he did not sleep well last night but, did admit that he sleeps most of the day. HE reiterated that he wants to go home. I explained that his family wanted him to come to rehab to improve his strength so they could better manage his care at home and prevent falls. I also explained that in order to be on rehab patients needed to do 3 hours of therapy daily. I explained that if he is unable to assist with his care at home and he is unwilling to do therapy he will continue to decline and his family may not be able to care for him at home. He said he would try but, when the PT went in to see him about 30 minutes after our talk he was too tired and needed to rest more. Objective Data Objective Data Vital Signs: Vital Signs Temp Pulse Resp BP Pulse Ox O2 Del Method 97.7 F L 69 16 146/79 H 97 Room Air 04/06/22 07:46 04/06/22 07:46 04/06/22 09:34 04/06/22 07:46 04/06/22 09:34 04/06/22 09:34 Oxygen Delivery Method Room Air Weight: 125 lb 10.616 oz Body Mass Index (BMI) 18.2 Intake & Output: Intake and Output for Last 24 Hours 04/04/22 04/05/22 04/06/22 23:59 23:59 23:59 Intake Total 650 / 650 520 / 520 100 / 100 Output Total 425 / 425 500 / 500 200 / 200 Balance 225 / 225 20 / 20 -100 / -100 Medical Nutrition Assessment Dietitian: Malnutrition Criteria Met Start: 04/01/22 13:21 Freq: Status: Active Protocol: Document 04/01/22 13:21 RMA (Rec: 04/01/22 13:22 RMA [id number]) Nutrition Malnutrition Evidence of Malnutrition Exists Yes Malnutrition (severe): Acute Illness/Injury,Chronic Evidenced By Suboptimal Energy Intake ( Severe),Weight Loss (Severe), Physical Changes (Severe) Clinical Problem Chronic Disease or Condition Related Malnutrition Etiology Severe protein-calorie malnutrition in the context of acute on chronic disease related to inadequate oral intake and difficulty swallowing Signs/Symptoms as evidenced by oral intake meeting less than 50% estimated nutrition needs x past 1-2 weeks, muscle/fat wasting in the orbitals, face, clavicle, arms and legs, BMI 18.2, refusing meals and ~10% wt loss x past less than 2 weeks Status Active Problem Recommendation Dietitian Recommendations/Changes Continue regular diet with consistency/texture as per DIRECTOR OF SALES SUPPORT . Will add ensure pudding w/ breakfast and magic cup w/ lunch and dinner. Will add 120 ml ensure plus high protein 4 times per day w / medpass. May need to consider enteral nutrition support if PO remains poor/inadequate and weight continues to decline. Lab / Micro Data Result Diagrams: 04/01/22 05:35 04/01/22 05:35 Physical Exam Const alert Constitutional Narrative: He was lying in bed with his eyes closed when I entered the room. He was lying nearly flat and had no labored breathing. He aroused with calling his name and he was pleasant when talking to me. Thought process is intact and speech is crisp and projects well. There is no facial asymmetry. He is not restless. HEENT Mouth: dry mucous membranes Eyes PERRL and EOMs intact bilaterally Resp normal respiratory effort and clear to auscultation bilaterally Resp Narrative: Diminished in the bases BL. Not tachypneic. Cardio Cardio Narrative: He is currently in a bigeminal rhythm and he is unaware of any missed beats. He denies lightheadedness. His only c/o at this time is being very tired. GI normal to inspection, nondistended, normoactive bowel sounds, soft to palpation and non-tender GI Narrative: No guarding with palpation Extremity General Extremity: Negative for edema Skin General Skin Exam: no breakdown Rashes: no rashes Assessment & Plan Assessment/Plan (1) Debility: PLAN: due to ALS and a fall causing a SAH. (2) Subarachnoid hemorrhage: (3) ALS (amyotrophic lateral sclerosis): (4) Depression: PLAN: Started on Remeron at admission to rehab by Dr. Cosby. (5) Dementia: (6) Dysrhythmia, cardiac: PLAN: He is currently in a bigeminal rhythm....will get an EKG. He has a hx of PAC's and PVC's in the past and he is asymptomatic. (7) Fatigue: PLAN: this is likely multifactorial and due to ALS, depression and medication. He was placed on Keppra for seizure prophylaxis while at [facility] due to parenchymal and Subarachnoid hemorrhages. Will DC Keppra in hopes that the fatigue will improve. Continue to monitor closely for any seizure activity. K and MAG were normal on the . PLAN: Plan 1. Continue therapy 2. SW will D/W the family plans for DC in the event that he continues to refuse therapy. 3. DC Keppra. 4. Continue Remeron 5. EKG. Charges/Coding Visit Charges Inpatient E&M: 47567 Subs Hosp L2
--- NOTE | 2022-04-06 14:45 | EKGRS_ITS ---
Test Reason : BIGEMINY Blood Pressure : / mmHG Vent. Rate : 072 BPM Atrial Rate : 072 BPM P-R Int : 000 ms QRS Dur : 086 ms QT Int : 400 ms P-R-T Axes : 000 055 028 degrees QTc Int : 438 ms Sinus rhythm with atrial bigeminy Confirmed by ROBERTO GRAHAM, WILLIAN ([id number]), non linear editor MONI BURDICK ([id number]) on 04/07/2022 11:02:04 AM Referred By: LEE Confirmed By:WILLIAN MEJIA MD
[2022-04-06 19:36] VITALS: BP 87/60; PULSE 53; RESP 16; TEMP 36.4; O2SAT 96
[2022-04-06] MEDS: Latanoprost 0.005% 1 Bottle 1 DRP LEFT EYE (19:48)
[2022-04-06] MEDS: Mirtazapine 15 MG Tablet 7.5 MG PO (19:50)
[2022-04-06] MEDS: Atorvastatin Calcium 20 MG Tablet PO (19:50)
[2022-04-07 07:48] VITALS: BP 137/90; PULSE 70; RESP 16; TEMP 36.9; O2SAT 98
[2022-04-07] MEDS: Ensure Plus High Protein 120 ML LIQUID PO ×3 (08:25→22:26)
[2022-04-07] MEDS: RILUZOLE 50 MG TABLET PO ×2 (08:25→22:26)
[2022-04-07] MEDS: Omega-3 Acid Ethyl Esters 1 GM Capsule PO (08:27)
[2022-04-07] MEDS: Ascorbic Acid 500 MG Tablet PO (08:27)
[2022-04-07] MEDS: Senna/Docusate Sodium 1 Tablet 2 TABLET PO ×2 (08:28→22:25)
[2022-04-07] MEDS: Timolol 0.5% 5ML OPTH.BTL 1 DRP LEFT EYE (08:28)
[2022-04-07] MEDS: Fluticasone 0.05% 1 SPRAY NASAL.SRY 2 SPRAY NASAL (08:30)
--- NOTE | 2022-04-07 09:39 | PN_ITS ---
Subjective Subjective Afebrile VSS-blood pressure was low yesterday afternoon at 87/60 with a heart rate of 53. Patient was somnolent most of the day. Blood pressure this morning is 137/90. Heart rate is 70. He denies lightheadedness. Maintaining appropriate oxygen saturation on RA Oral intake is improving. He ate 75 to 100% of his supper last night. Discussed with nursing - no problems that need addressed Reviewed the PT/OT/ST notes Medication list reviewed. He is much more alert today. Keppra was discontinued yesterday. When I saw him today he was sitting in his WC and has already done some PT in his room and is now going to do more PT outside his room. He is being somewhat more cooperative and his goal is to get home. His dtr Marika lives in [place] and is not here to help with his care. I discussed with the SW and the family wants to have him go to an SNF at [place] until they can arrange care. Faustino denies SOB, CP, palpitations, lightheadedness, dysuria, cephalgia, difficulty sleeping. His only real complaint is he is very tired. EKG report from yesterday says he is in a bigeminal atrial rhythm. CA has been prolonged on previous EKG....could be Wenckebach. He is asymp[tomatic Objective Data Objective Data Vital Signs: Vital Signs Temp Pulse Resp BP Pulse Ox O2 Del Method 98.4 F 70 16 137/90 H 98 Room Air 04/07/22 07:48 04/07/22 07:48 04/07/22 07:48 04/07/22 07:48 04/07/22 07:48 04/07/22 07:48 Oxygen Delivery Method Room Air Weight: 125 lb 10.616 oz Body Mass Index (BMI) 18.2 Intake & Output: Intake and Output for Last 24 Hours 04/05/22 04/06/22 04/07/22 23:59 23:59 23:59 Intake Total 520 / 520 820 / 820 Output Total 500 / 500 500 / 500 400 / 400 Balance 320 / 320 -400 / -400 Medical Nutrition Assessment Dietitian: Malnutrition Criteria Met Start: 04/01/22 13:21 Freq: Status: Active Protocol: Document 04/06/22 14:31 RMA (Rec: 04/06/22 14:31 RMA [id number]) Nutrition Malnutrition Evidence of Malnutrition Exists Yes Malnutrition (severe): Acute Illness/Injury,Chronic Evidenced By Suboptimal Energy Intake ( Severe),Weight Loss (Severe), Physical Changes (Severe) Clinical Problem Chronic Disease or Condition Related Malnutrition Etiology Severe protein-calorie malnutrition in the context of acute on chronic disease related to inadequate oral intake and difficulty swallowing Signs/Symptoms as evidenced by oral intake meeting less than 50% estimated nutrition needs x past 1-2 weeks, muscle/fat wasting in the orbitals, face, clavicle, arms and legs, BMI 18.2, average intake less than 50% meals and ~10% wt loss x past less than 2 weeks Status Active Problem Recommendation Dietitian Recommendations/Changes Continue regular diet with consistency/texture as per ENGINEER [employer] DEPLOYMENT . Continue ensure pudding w/ breakfast and magic cup w/ lunch and dinner. Continue 120 ml ensure plus high protein 4 times per day w / medpass. May need to consider enteral nutrition support if PO remains poor/inadequate and weight continues to decline. Lab / Micro Data Result Diagrams: 04/08/22 05:29 04/08/22 05:29 Physical Exam Const alert, oriented x3 and no apparent distress HEENT Mouth: dry mucous membranes Eyes Eyes Narrative: Ptosis of the left eye......better able to evaluate this today since he is awake and has his eyes open Resp normal respiratory effort and clear to auscultation bilaterally Resp Narrative: Diminished in the bases Cardio regular rate, regular rhythm, no murmurs and no gallops GI normal to inspection, nondistended, normoactive bowel sounds, soft to palpation and non-tender Extremity no clubbing, cyanosis or edema and no calf tenderness Skin General Skin Exam: no breakdown Rashes: no rashes Wounds: Negative for wounds noted Assessment & Plan Assessment/Plan (1) Debility: (2) Fall: (3) Subarachnoid hemorrhage: (4) ALS (amyotrophic lateral sclerosis): (5) Glaucoma: (6) Dysrhythmia, cardiac: (7) Depression: (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 transplanted heart: [place] heart Qualified Code(s): I25.10 - Atherosclerotic heart disease of [place] coronary artery without angina pectoris PLAN: Plan 1. Continue therapy. 2. BMP, MAG, PHOS and HH in the AM. 3. Now that he is more awake since Keppra was discontinued he is willing to participate in therapy. Will continue to monitor nclosely over the next few days. If he is able to do 3 hours of therapy over the next 48 hours will continue to treat him in rehab. Charges/Coding Visit Charges Inpatient E&M: 54603 Subs Hosp L2
--- NOTE | 2022-04-07 09:44 | CASEMGMT ---
Addendum entered by Pilar Mariee 04/08/22 15:34: Jefry requested updated notes - sent via [facility] Addendum entered by Pilar Mariee 04/08/22 12:30: [facility] does not have any bed availability currently but did place pt and on AL waitlist. Addendum entered by Pilar Mariee 04/08/22 12:16: [facility] denied. PARESH left voicemail with Miya at [facility] for update and a voicemail for Laxmi at [facility]. [facility] is able to accept pt in SNF and coordinate with admitting to AL. Original Note: Social Work Received update from Dr. nieves since medication was stopped yesterday, pt is more alert and motivated today. Requesting to keep pt on RU if progress improves. SW to follow daily on progress. Jefry and [facility] Fat[facility] are still reviewing. SW to update dtr as more information is known. Pilar Mariee, ARSLAN DEUTSCHW
[2022-04-07 22:25] VITALS: BP 111/56; PULSE 76; RESP 16; TEMP 36.3; O2SAT 96
[2022-04-07] MEDS: Atorvastatin Calcium 20 MG Tablet PO (22:25)
[2022-04-07] MEDS: Mirtazapine 15 MG Tablet 7.5 MG PO (22:25)
[2022-04-07] MEDS: Latanoprost 0.005% 1 Bottle 1 DRP LEFT EYE (22:26)
[2022-04-08] MEDS: Latanoprost 0.005% 1 Bottle 1 DRP RIGHT EYE (00:25)
--- NOTE | 2022-04-08 04:16 | NURSING ---
Reviewed and agree with Pipe JAIMES's, documentation and assessment charting.
[2022-04-08 05:45] LABS: Hematocrit 33.7 % (40-54); Hemoglobin 11.4 g/dL (13.0-16.5)
[2022-04-08 06:05] LABS: Anion Gap 5 (5-15); BUN 15 mg/dL (7-18); BUN/Creat Ratio 30.9 RATIO (10-20); Calcium,Total 9.1 mg/dL (8.5-10.1); Chloride 106 mmol/L (98-107); Creatinine, Serum 0.48 mg/dL (0.70-1.30); EST Glomerular Filtration Rate 176 mL/min (>60); Est Glom Filt Rate - Afr Amer 213 mL/min (>60); Glucose 103 mg/dL (74-106); Magnesium 2.3 mg/dL (1.6-2.6); Phosphorus 3.3 mg/dL (2.5-4.9); Potassium 3.9 mmol/L (3.5-5.1); Sodium Level 140 mmol/L (136-145)
[2022-04-08] MEDS: Fluticasone 0.05% 1 SPRAY NASAL.SRY 2 SPRAY NASAL (08:20)
[2022-04-08] MEDS: RILUZOLE 50 MG TABLET PO ×2 (08:21→20:01)
[2022-04-08] MEDS: Senna/Docusate Sodium 1 Tablet 2 TABLET PO ×2 (08:21→20:02)
[2022-04-08] MEDS: Ascorbic Acid 500 MG Tablet PO (08:21)
[2022-04-08] MEDS: Omega-3 Acid Ethyl Esters 1 GM Capsule PO (08:21)
[2022-04-08] MEDS: Timolol 0.5% 5ML OPTH.BTL 1 DRP LEFT EYE (08:26)
[2022-04-08] MEDS: Ensure Plus High Protein 120 ML LIQUID PO ×2 (08:26→20:00)
[2022-04-08 08:46] VITALS: BP 131/62; PULSE 50; RESP 14; TEMP 36.9; O2SAT 93
[2022-04-08 19:14] VITALS: BP 127/63; PULSE 71; RESP 16; TEMP 36.6; O2SAT 95
[2022-04-08] MEDS: Atorvastatin Calcium 20 MG Tablet PO (20:00)
[2022-04-08] MEDS: Mirtazapine 15 MG Tablet 7.5 MG PO (20:01)
[2022-04-08] MEDS: Latanoprost 0.005% 1 Bottle 1 DRP LEFT EYE (20:02)
--- NOTE | 2022-04-09 03:01 | NURSING ---
Reviewed and agree with Tushar Loya LPN's documentation and assessment charting.
[2022-04-09 07:25] VITALS: BP 127/57; PULSE 102; RESP 16; TEMP 36.9; O2SAT 96
[2022-04-09] MEDS: Senna/Docusate Sodium 1 Tablet 2 TABLET PO ×2 (08:18→20:49)
[2022-04-09] MEDS: Ascorbic Acid 500 MG Tablet PO (08:18)
[2022-04-09] MEDS: Ensure Plus High Protein 120 ML LIQUID PO ×3 (08:19→20:48)
[2022-04-09] MEDS: Timolol 0.5% 5ML OPTH.BTL 1 DRP LEFT EYE (08:19)
[2022-04-09] MEDS: Omega-3 Acid Ethyl Esters 1 GM Capsule PO (08:19)
[2022-04-09] MEDS: Fluticasone 0.05% 1 SPRAY NASAL.SRY 2 SPRAY NASAL (08:19)
[2022-04-09] MEDS: RILUZOLE 50 MG TABLET PO ×2 (08:19→22:40)
--- NOTE | 2022-04-09 13:09 | CASEMGMT ---
Social Work IDT met with patient, , caregiver and dtr via conference call for Team meeting. Discussed patient's progress in PT/OT/ST/SN. Educated to Medicare approval of 16 days with DC 04/16. Pt is improving with his therapy participation. As long as pt continues, pt can remain until DC date. Pt/family goal is to transfer to SNF for skilled therapy. plans to move into AL with the goal if pt moving in with . Caregiver will continue to assist and pt in AL. Updated family Jefry and Larisa have accepted pt, and [facility]ona cannot. Family to discuss with pt and notify this worker. SW to continue to follow for DC planning. Pilar Mariee, CHAR CONVEYOR TENDER CELLAR LAST REMODELER REPAIRER
--- NOTE | 2022-04-09 16:25 | PN_ITS ---
Subjective Subjective Ronald was seen on team rounds today. His and homeland security program specialist were present in the room. His daughter Saloni participated by phone. Afebrile VSS Maintaining appropriate oxygen saturation on RA Oral intake is usually 50 to 74% when he eats but he has missed some meals. Overall I think his intake is better than on admission. Discussed with nursing - no problems that need addressed Reviewed the PT/OT/ST notes Medication list reviewed. Faustino denies cephalgia, lightheadedness, chest pain, shortness of breath, cough, nausea/vomiting, abdominal pain, dysuria and calf pain. He tells me that he feels less fatigued since the Keppra was discontinued. He was sitting up in the recliner at the time I saw him. Objective Data Objective Data Vital Signs: Vital Signs Temp Pulse Resp BP Pulse Ox O2 Del Method 98.5 F 102 H 16 127/57 H 96 Room Air 04/09/22 07:25 04/09/22 07:25 04/09/22 07:25 04/09/22 07:25 04/09/22 07:25 04/09/22 07:25 Oxygen Delivery Method Room Air Weight: 125 lb 10.616 oz Body Mass Index (BMI) 18.2 Intake & Output: Intake and Output for Last 24 Hours 04/07/22 04/08/22 04/09/22 23:59 23:59 23:59 Intake Total 420 / 420 120 / 120 Output Total 925 / 925 300 / 300 Balance -505 / -505 -180 / -180 Medical Nutrition Assessment Dietitian: Malnutrition Criteria Met Start: 04/01/22 13:21 Freq: Status: Active Protocol: Document 04/06/22 14:31 RMA (Rec: 04/06/22 14:31 RMA [id number]) Nutrition Malnutrition Evidence of Malnutrition Exists Yes Malnutrition (severe): Acute Illness/Injury,Chronic Evidenced By Suboptimal Energy Intake ( Severe),Weight Loss (Severe), Physical Changes (Severe) Clinical Problem Chronic Disease or Condition Related Malnutrition Etiology Severe protein-calorie malnutrition in the context of acute on chronic disease related to inadequate oral intake and difficulty swallowing Signs/Symptoms as evidenced by oral intake meeting less than 50% estimated nutrition needs x past 1-2 weeks, muscle/fat wasting in the orbitals, face, clavicle, arms and legs, BMI 18.2, average intake less than 50% meals and ~10% wt loss x past less than 2 weeks Status Active Problem Recommendation Dietitian Recommendations/Changes Continue regular diet with consistency/texture as per INGOT WEIGHER . Continue ensure pudding w/ breakfast and magic cup w/ lunch and dinner. Continue 120 ml ensure plus high protein 4 times per day w / medpass. May need to consider enteral nutrition support if PO remains poor/inadequate and weight continues to decline. Lab / Micro Data Result Diagrams: 04/08/22 05:29 04/08/22 05:29 Physical Exam Const alert, oriented x3 and no apparent distress Constitutional Narrative: He is smiling today. He is feeding himself at times and when he feels very tired we feed him. His ALS affects his arms much more than his legs. His cooperation with therapy is much better General Appearance: cooperative HEENT Mouth: dry mucous membranes Resp Resp Narrative: Clear to auscultation but diminished in the bases. No labored breathing and he is not tachypneic. Cardio Cardio Narrative: Once again he is in a bigeminal rhythm but the heart rate is in the 70s at the time of my exam and he is asymptomatic. Rate: Negative for bradycardia or tachycardic GI normal to inspection, nondistended, normoactive bowel sounds, soft to palpation and non-tender Extremity no clubbing, cyanosis or edema and no calf tenderness Skin General Skin Exam: no breakdown Rashes: no rashes Wounds: Negative for wounds noted Neuro Neuro Narrative: weakness in the BL arms is >> than in the legs. He had been doing his own h ygiene at home but, It exhausts him. He has ptosis of the L eye Speech: speech normal Psych cooperative Psych Narrative: He is pleasant and appropriate with me. Assessment & Plan Assessment/Plan (1) Debility: (2) Fall: (3) Subarachnoid hemorrhage: (4) Dysrhythmia, cardiac: (5) Premature atrial contractions: (6) Premature ventricular contraction: (7) Presence of stent in coronary artery: (8) ALS (amyotrophic lateral sclerosis): PLAN: Plan 1. On rounds we discussed with Faustino, his and his dtr Marika the plan for DC. He is doing better with therapy and is ambulating and feeding himself at times. The plan for DC is to go to an SNF. After that a decision will be made regarding home or AL. Faustino asked if there was any chance he could go back home. I think there is a chance but, he will need assistance with grooming, bathing and dressing and at times if he is very tired he will need to be fed. His is very frail and she will not be able to provide the amount of assistance he would need. There is a homeland security program specialist that has been helping Faustino at home. 2. Will continue therapy. 3. He is having intermittent atrial bigeminal rhythm but the HR is normal and he remains asymptomatic. 4. He is tolerating Remeron with no adverse side effects and he is eating better. He is sleeping well at night. If by the end of the week he has no adverse SE will increase the Remeron to 15 mg. Charges/Coding Visit Charges Inpatient E&M: 79164 Subs Hosp L2
[2022-04-09 20:40] VITALS: O2SAT 98
[2022-04-09 20:46] VITALS: BP 128/66; PULSE 72; RESP 16; TEMP 36.6; O2SAT 98
[2022-04-09] MEDS: Mirtazapine 15 MG Tablet 7.5 MG PO (20:49)
[2022-04-09] MEDS: Atorvastatin Calcium 20 MG Tablet PO (20:49)
[2022-04-09] MEDS: Latanoprost 0.005% 1 Bottle 1 DRP LEFT EYE (20:52)
[2022-04-09] MEDS: Latanoprost 0.005% 1 Bottle 1 DRP RIGHT EYE (20:52)
[2022-04-10 08:24] VITALS: BP 118/57; PULSE 100; RESP 16; TEMP 36.5; O2SAT 97
--- NOTE | 2022-04-10 09:03 | CASEMGMT ---
Addendum entered by Pilar Mariee 04/10/22 10:22: [id number] started in HENS and pt will trigger for Level II r/t ALS dx. Original Note: Social Work Received email from dtr stating pt and are choosing [facility]. Pt will admit to SNF skilled and to AL, with the goal for pt to move into AL with after skilled services. SW updated Eulalia at [facility] and requesting to contact to begin AL process. Goal DC 04/16. Will continue to follow. Pilar Mariee, ARSLAN MERCHANDISING INTERN
[2022-04-10 09:32] VITALS: BP 108/64; PULSE 44; RESP 17; TEMP 36.4; O2SAT 97
[2022-04-10] MEDS: Fluticasone 0.05% 1 SPRAY NASAL.SRY 2 SPRAY NASAL (09:39)
[2022-04-10] MEDS: Aspirin E.C. 81 MG Tablet PO (09:39)
[2022-04-10] MEDS: Ensure Plus High Protein 120 ML LIQUID PO (09:39)
[2022-04-10] MEDS: Senna/Docusate Sodium 1 Tablet 2 TABLET PO (09:40)
[2022-04-10] MEDS: Clopidogrel Bisulfate 75 MG Tablet PO (09:40)
[2022-04-10] MEDS: Ascorbic Acid 500 MG Tablet PO (09:40)
[2022-04-10] MEDS: Omega-3 Acid Ethyl Esters 1 GM Capsule PO (09:40)
[2022-04-10] MEDS: Timolol 0.5% 5ML OPTH.BTL 1 DRP LEFT EYE (09:40)
[2022-04-10] MEDS: RILUZOLE 50 MG TABLET PO (09:41)
[2022-04-10 10:00] VITALS: PULSE 91
[2022-04-10 10:15] VITALS: BP 109/61; BP 111/64; BP 117/60; PULSE 37; PULSE 40; PULSE 91
--- NOTE | 2022-04-10 10:32 | EKG12_ITS ---
Test Reason : rythm change Blood Pressure : / mmHG Vent. Rate : 052 BPM Atrial Rate : 052 BPM P-R Int : 256 ms QRS Dur : 092 ms QT Int : 430 ms P-R-T Axes : 070 070 061 degrees QTc Int : 399 ms Sinus bradycardia with marked sinus arrhythmia with 1st degree A-V block Otherwise normal ECG When compared with ECG of 10-APR-2022 10:48, MANUAL COMPARISON REQUIRED, DATA IS UNCONFIRMED Confirmed by KAMRON GRAHAM, BERNADETTE ([id number]), newspaper copy editor MONI BURDICK ([id number]) on 04/13/2022 2:06:47 PM Referred By: Shelbie Confirmed By:BERNADETTE LUNDY MD
--- NOTE | 2022-04-10 11:00 | PCM.HP.STD ---
HPI - General General Date of Admission: 03/31/22 Date of Service: 04/10/22 Chief Complaint: bradycardia HPI Narrative VIRGIL COLIDNRES, is a 81 M with a PMH as outlined who presents as a direct admit from the rehab unit o/a of bradycardia. Marvin is currently at the inpatient rehab unit for ALS and need for intensive therapy. HE had been noted to be episodically bradycardic, with HR going down to the 30s. 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 However, patient would bounce back to normal sinus rhythm. He was working with therapy today and was noted to be bradycardic, with HR going down to the 30s. He was also lightheaded and dizzy. Orthostatics checked were negative. EKG showed no acute ST changes. Last bloodowrk on 04/08/2022 showed normal potassium and magnesium levels. He is being admitted to be managed for symptomatic bradycardia with concerns for heart block. [facility] Medical History (Updated 04/06/22 @ 10:[address] Hermila Monte, ) Abnormal EKG ALS (amyotrophic lateral sclerosis) Atherosclerotic heart disease of [place] coronary artery without angina pectoris Atrial arrhythmia Chest pain Dizziness and giddiness Essential hypertension Family history of hypertension Fatigue Hyperlipidemia Hypertension Long-term use of high-risk medication Palpitations Premature atrial contractions Premature ventricular contraction Unstable angina Home Medications aspirin 81 mg tablet,delayed release 81 mg PO QDAY heart [facility] 07/22/17 [History Last Taken Unknown] omega-3 fatty acids 1,000 mg capsule 1,000 mg PO QDAY Check with primary doctor 07/22/17 [History Last Taken Unknown] latanoprost 0.005 % eye drops 1 drp LEFT EYE QHS Check with primary doctor 04/15/20 [History Last Taken 03/30/22 21:00] timolol maleate 0.5 % eye drops 1 drp LEFT EYE DAILY Check with primary doctor 75 days #5 mL 04/15/20 [History Last Taken 03/31/22 09:00] ascorbic acid (vitamin C) 500 mg tablet 500 mg PO DAILY Check with primary doctor 10/09/21 [History Last Taken Unknown] clopidogrel 75 mg tablet 75 mg PO QDAY #90 tabs 01/19/22 [Rx Last Taken Unknown] beclomethasone diprop (AQ) 42 mcg (0.042 %) nasal spray 1 spray intranasal BID Check with primary doctor 03/31/22 [History Last Taken Unknown] cholecalciferol (vitamin D3) 10 mcg/mL (400 unit/mL) oral drops (D-Vi-Sahra) 10 mcg PO DAILY Check with primary doctor 03/31/22 [History Last Taken Unknown] diphenhydramine HCl 25 mg capsule (Benadryl) 25 mg PO QHS PRN Sleep 03/31/22 [History Last Taken Unknown] latanoprost 0.005 % eye drops 1 drp RIGHT EYE QHS Check with primary doctor 03/31/22 [History Last Taken 03/30/22 21:00] levetiracetam 500 mg tablet (Keppra) 500 mg PO BID Check with primary doctor 03/31/22 [History Last Taken Unknown] losartan 25 mg tablet 25 mg PO DAILY BP 03/31/22 [History Last Taken Unknown] lovastatin 40 mg tablet 40 mg PO QPM Check with primary doctor 03/31/22 [History Last Taken Unknown] riluzole 50 mg tablet 50 mg PO .COMPLEX ALS 03/31/22 [History Last Taken 03/31/22 06:00] Allergy/AdvReac Type Severity Reaction Status Date / Time nitroglycerin AdvReac Severe Low BP, Verified 03/24/22 22:11 near syncope Family History Father Myocardial infarction CAD (coronary artery disease) Surgical History History of repair of rotator cuff Hx of appendectomy Presence of stent in coronary artery (~08/2014) Social History (Updated 03/31/22 @ 22:[address] Arias Cosby MD) household members: spouse Smoking Status: Never smoker how long ago did patient quit smokin years ago second hand exposure: No alcohol intake: current alcohol intake frequency: 0-2 drinks per day Alcohol type: wine and hard liquor substance use type: does not use caffeine: Yes Type: coffee Number of servings: 1 Vital Signs Vital Signs Vital Signs: 04/09/22 20:46 04/09/22 20:46 04/09/22 20:40 Temperature 97.8 F Temperature Source Temporal Pulse Rate 72 Pulse Strength Normal (2+) Respiratory Rate 16 Respiratory Effort Normal Non-Labored Respiratory Depth Normal Respiratory Pattern Normal Blood Pressure 128/66 H Blood Pressure Mean 86 Blood Pressure Source Monitor Blood Pressure Position Sitting Blood Pressure Location Right Arm Pulse Ox 98 98 Oxygen Delivery Method Room Air Room Air 04/10/22 08:24 04/10/22 09:32 04/10/22 10:00 Temperature 97.7 F L 97.6 F L Temperature Source Oral Temporal Pulse Rate 100 44 L Pulse Strength Normal (2+) Respiratory Rate 16 17 Respiratory Effort Respiratory Depth Respiratory Pattern Blood Pressure 118/57 L 108/64 Blood Pressure Mean 77 78 Blood Pressure Source Monitor Monitor Blood Pressure Position Semi-Fowlers Sitting Blood Pressure Location Right Arm Left Arm Pulse Ox 97 97 Oxygen Delivery Method Room Air Room Air 04/10/22 10:00 Temperature Temperature Source Pulse Rate 91 Pulse Strength Respiratory Rate Respiratory Effort Normal Non-Labored Respiratory Depth Normal Respiratory Pattern Normal Blood Pressure Blood Pressure Mean Blood Pressure Source Blood Pressure Position Blood Pressure Location Pulse Ox Oxygen Delivery Method Room Air Weight Weight: 124 lb 9.6 oz Body Mass Index (BMI) 18.2 Results Medical Records Data Medical Nutrition Assessment Dietitian: Malnutrition Criteria Met Start: 04/01/22 13:21 Freq: Status: Active Protocol: Document 04/06/22 14:31 RMA (Rec: 04/06/22 14:31 RMA [id number]) Nutrition Malnutrition Evidence of Malnutrition Exists Yes Malnutrition (severe): Acute Illness/Injury,Chronic Evidenced By Suboptimal Energy Intake ( Severe),Weight Loss (Severe), Physical Changes (Severe) Clinical Problem Chronic Disease or Condition Related Malnutrition Etiology Severe protein-calorie malnutrition in the context of acute on chronic disease related to inadequate oral intake and difficulty swallowing Signs/Symptoms as evidenced by oral intake meeting less than 50% estimated nutrition needs x past 1-2 weeks, muscle/fat wasting in the orbitals, face, clavicle, arms and legs, BMI 18.2, average intake less than 50% meals and ~10% wt loss x past less than 2 weeks Status Active Problem Recommendation Dietitian Recommendations/Changes Continue regular diet with consistency/texture as per L D RN . Continue ensure pudding w/ breakfast and magic cup w/ lunch and dinner. Continue 120 ml ensure plus high protein 4 times per day w / medpass. May need to consider enteral nutrition support if PO remains poor/inadequate and weight continues to decline. Lab / Micro Data Result Diagrams: 04/08/22 05:29 04/08/22 05:29 Unit Exclusion This patient is an acute care inpatient being housed in the excluded unit because of capacity issues related to the disaster or emergency.: Yes
--- NOTE | 2022-04-10 11:22 | DS.PCM_ITS ---
Providers Date of Admission: 03/31/22 Date of Discharge: 04/10/22 Primary Care Physician: Dr. Marcos Nelson MD Reason For Visit: SAH Diagnosis Discharge Diagnosis (1) Debility: Status: Acute Code(s): R53.81 - Other malaise Plan: Due to recent SAH related to a fall and to ALS. (2) Fall: Status: Acute Code(s): W19.XXXA - Unspecified fall, initial encounter (3) Traumatic subarachnoid hemorrhage: Status: Acute Code(s): S06.6XAA - Traumatic subarachnoid hemorrhage with loss of consciousness status u nknown, initial encounter (4) Symptomatic bradycardia: Status: Acute Code(s): R00.1 - Bradycardia, unspecified Plan: HR dropped into the high 30's and low 40's today when he was exercising on the [employer] and he got lightheaded, became very fatigued and was SOB. He had orthostatics (5) Dysrhythmia, cardiac: Status: Acute Code(s): I49.9 - Cardiac arrhythmia, unspecified Plan: Bigeminal atrial rhythm and severe intermittent bradycardia with lightheadedness and SOB. P waves are difficult to see on the EKG but EKGs in the past have shown a prolonged PT interval. He may be having Wenckebach and dropping every 3rd beat. (6) Premature atrial contractions: Status: Chronic Code(s): I49.1 - Atrial premature depolarization (7) Premature ventricular contraction: Status: Chronic Code(s): I49.3 - Ventricular premature depolarization (8) Presence of stent in coronary artery: Status: Chronic Code(s): Z95.5 - Presence of coronary angioplasty implant and graft (9) ALS (amyotrophic lateral sclerosis): Status: Acute Code(s): G12.21 - Amyotrophic lateral sclerosis Plan: Follows up with Dr. Hurd. He is taking riluzole 50 mg BID. (10) Depression: Status: Acute Code(s): F32.A - Depression, unspecified Plan: Was started on Remeron on 04/02/22. He has had no adverse reactions. Bradycardia is not listed as one of the SE of this medication. (11) Hyperlipidemia: Status: Acute Code(s): E78.5 - Hyperlipidemia, unspecified (12) Hypertension: Status: Chronic Code(s): I10 - Essential (primary) hypertension (13) Coronary artery disease: Status: Acute Code(s): I25.10 - Atherosclerotic heart disease of [place] coronary artery without angina pectoris (14) Glaucoma: Status: Acute Code(s): H40.9 - Unspecified glaucoma (15) Dysphagia: Status: Acute Code(s): R13.10 - Dysphagia, unspecified (16) Dementia: Status: Chronic Code(s): F03.90 - Unspecified dementia, unspecified severity, without behavioral disturbance, psychotic disturbance, mood disturbance, and anxiety Plan: Was on medication at one time but the pt stopped it. (17) Atherosclerotic heart disease of [place] coronary artery without angina pectoris: Status: Chronic Code(s): I25.10 - Atherosclerotic heart disease of [place] coronary artery without angina pectoris Qualifiers: [place] vs. transplanted heart: [place] heart Qualified Code(s): I25.10 - Atherosclerotic heart disease of [place] coronary artery without angina pectoris Plan 1. Spoke with Dr. Morfin and she will Medications at Discharge Home Medications aspirin 81 mg tablet,delayed release 81 mg PO QDAY [facility] 07/22/17 omega-3 fatty acids 1,000 mg capsule 1,000 mg PO QDAY Check with primary doctor 07/22/17 latanoprost 0.005 % eye drops 1 drp LEFT EYE QHS Check with primary doctor 04/15/20 timolol maleate 0.5 % eye drops 1 drp LEFT EYE DAILY Check with primary doctor 75 days #5 mL 04/15/20 ascorbic acid (vitamin C) 500 mg tablet 500 mg PO DAILY Check with primary doctor 10/09/21 clopidogrel 75 mg tablet 75 mg PO QDAY #90 tabs 01/19/22 cholecalciferol (vitamin D3) 10 mcg/mL (400 unit/mL) oral drops (D-Vi-Sahra) 10 mc g PO DAILY Check with primary doctor 03/31/22 latanoprost 0.005 % eye drops 1 drp RIGHT EYE QHS Check with primary doctor 03/31/22 losartan 25 mg tablet 25 mg PO DAILY BP 03/31/22 riluzole 50 mg tablet 50 mg PO .COMPLEX ALS 03/31/22 acetaminophen 500 mg tablet 1,000 mg PO Q6H PRN PRN Pain Score 1-5 #0 tabs 04/10/22 atorvastatin 20 mg tablet 20 mg PO QHS #1 TAB 04/10/22 bisacodyl 10 mg rectal suppository 10 mg MA .PRN X 1 PRN Constipation #0 ea 04/10/22 fluticasone propionate 50 mcg/actuation nasal spray,suspension 2 spray NASAL DAILY #0 grams 04/10/22 food supplemt, lactose-reduced 0.08 gram-1.5 kcal/mL oral liquid (Ensure Plus High Protein) 120 ml PO 4X/DAY #0 mL 04/10/22 magnesium hydroxide 400 mg/5 mL oral suspension 30 ml PO .PRN X 1 PRN Constipation #0 mL 04/10/22 mirtazapine 15 mg tablet 15 mg PO QHS #1 TAB 04/10/22 oxycodone 5 mg tablet 5 mg PO Q4H PRN PRN Pain Score 6-10 #0 tabs 04/10/22 sennosides 8.6 mg-docusate sodium 50 mg tablet (Stool Softener-Stimulant Laxati ve) 2 tab PO BID #0 tabs 04/10/22 Hospital Course Operations None Procedures None Summary of Care Provided Minutes Spent on Discharge: 45 Hospital Course: Faustino Thayer is an 81-year-old male admitted to rehab on 03/31/2022 for debil ity related to a fall while going up 2 steps into his house.? He sustained a focal subarachnoid hemorrhage and a parenchymal hemorrhages of the left frontal and temporal lobes of the brain.? He was on aspirin and Plavix for coronary artery disease, cerebrovascular disease and hx of lacunar infarcts at the time of the fall. His past medical history is significant for ALS, CAD, hypertension, hyperlipidemia, lacunar infarcts, dementia(mild) and glaucoma.?He had a coronary stent placed in 2014. He follows with Dr. Hurd for ALS and was last seen in September of 2021.? At that time he was able to raise his hands with some difficulty to feed himself.? He was able to hold a cup using both hands and was able to use a fork.? He was unable to use a knife.? He had occasional swallowing difficulty and was at that time on a soft diet.? He had minimal weakness in his lower extremities and was able to ambulate on a flat surface independently.? He scored 27 out of 30 on a Mini-Mental status exam and had some difficulty with word finding, repeating himself, recalling names and bill paying.? I reviewed his last cardiology visit with Dr. Braun.? At that time he had no peripheral edema and his last echocardiogram was in 2014 and at that time the estimated ejection fraction was 60%.? The RV pressure was estimated at 27.? There was a suggestion of diastolic dysfunction. On my first visit with Faustino he was very fatigued and sleeping most of the day. He was not able to do 3 hours of therapy daily. He had no seizures since the fall and Keppra was discontinued to see if he would be more alert and over the next couple days he became very alert and was able to participate in therapy. On 04/06 he was noted to be in a bigeminal and an EKG was obtained and interpreted by Dr. Braun as an atrial bigeminal rhythm. In the past he had a prolonged MA interval but, the P waves are very difficult to find on the EKG. He may be having Wenckebach and dropping every third beat. He was asymptomatic with the bigeminal rhythm and his heart rate was within normal limits. He denied lightheadedness, palpitations, chest pain and shortness of breath. On the morning of 04/10/22 while exercising on the [employer] his HR dropped to 40 and he complained of SOB, lightheadedness and extreme fatigue. He denied CP. He was taken back to his room and orthostatic VS were done. Lying down his heart rate was 91 with a blood pressure of 108/64. Sitting his heart rate dropped to 37 and the blood pressure was 117/60. When standing the heart rate was 40 and the blood pressure was 111/64. An EKG was obtained and it showed a bigeminal atrial rhythm again at 69. His most recent lab showed a hemoglobin 11.4 which is stable. The BMP showed a potassium of 3.9 and a magnesium of 2.3. The BUN was 15 and the creatinine was 0.48 and stable. I contacted Dr. Morfin from the hospitalist service and she agreed to admit Dr. Thayer to the Progressive Care Units for telemetry. His and dtr were notified via and I will try again to reach them to discuss the reason for the transfer. We will take him back on rehab once he sees cardiology and is stabilzed. His greenhouse technician is Dr. Braun. Medical Records Data Medical Nutrition Assessment Dietitian: Malnutrition Criteria Met Start: 04/01/22 13:21 Freq: Status: Active Protocol: Document 04/06/22 14:31 RMA (Rec: 04/06/22 14:31 RMA [id number]) Nutrition Malnutrition Evidence of Malnutrition Exists Yes Malnutrition (severe): Acute Illness/Injury,Chronic Evidenced By Suboptimal Energy Intake ( Severe),Weight Loss (Severe), Physical Changes (Severe) Clinical Problem Chronic Disease or Condition Related Malnutrition Etiology Severe protein-calorie malnutrition in the context of acute on chronic disease related to inadequate oral intake and difficulty swallowing Signs/Symptoms as evidenced by oral intake meeting less than 50% estimated nutrition needs x past 1-2 weeks, muscle/fat wasting in the orbitals, face, clavicle, arms and legs, BMI 18.2, average intake less than 50% meals and ~10% wt loss x past less than 2 weeks Status Active Problem Recommendation Dietitian Recommendations/Changes Continue regular diet with consistency/texture as per RESIDENT ASSISTANT . Continue ensure pudding w/ breakfast and magic cup w/ lunch and dinner. Continue 120 ml ensure plus high protein 4 times per day w / medpass. May need to consider enteral nutrition support if PO remains poor/inadequate and weight continues to decline. Weight / BMI Weight Weight: 124 lb 9.6 oz Body Mass Index (BMI) 18.2 ABG / Lab / Microbiology Data Result Diagrams: 04/08/22 05:29 04/08/22 05:29 Meaningful Use Info Meaningful Use Diagnoses (Choose all that apply): None applicable Discharge Plan Admission Admit Date/Time: 03/31/22 13:24 Primary Reason for Your Visit: debility due to SAH due to a fall and to ALS with recent decline Attending Provider: Hermila Monte Primary Care Provider: Marcos Nelson Consulting Providers: Arias Cosby Chi Discharge Orders/Prescriptions Prescriptions: New atorvastatin 20 mg Tablet 20 mg PO QHS Qty: 1 0RF acetaminophen 500 mg Tablet 1,000 mg PO Q6H PRN PRN (Reason: Pain Score 1-5) Qty: 0 0RF magnesium hydroxide 400 mg/5 mL Suspension 30 ml PO .PRN X 1 PRN (Reason: Constipation) Qty: 0 0RF bisacodyl 10 mg Suppository 10 mg MA .PRN X 1 PRN (Reason: Constipation) Qty: 0 0RF mirtazapine 15 mg Tablet 15 mg PO QHS Qty: 1 0RF fluticasone propionate 50 mcg/actuation [place],Suspension 2 spray NASAL DAILY Qty: 0 0RF Ensure Plus High Protein 0.08 gram-1.5 kcal/mL Liquid 120 ml PO 4X/DAY Qty: 0 0RF sennosides-docusate sodium [Stool Softener-Stimulant Laxat] 8.6-50 mg Tablet 2 tab PO BID Qty: 0 0RF oxycodone 5 mg Tablet 5 mg PO Q4H PRN PRN (Reason: Pain Score 6-10) Qty: 0 0RF Continued aspirin 81 mg tablet,delayed release (DR/EC) 81 mg PO QDAY omega-3 fatty acids 1,000 mg capsule 1,000 mg PO QDAY timolol maleate 0.5 % drops 1 drp LEFT EYE DAILY 75 Days Qty: 5 latanoprost 0.005 % drops 1 drp LEFT EYE QHS ascorbic acid (vitamin C) 500 mg tablet 500 mg PO DAILY latanoprost 0.005 % Drops 1 drp RIGHT EYE QHS cholecalciferol (vitamin D3) [D-Vi-Sahra] 10 mcg/mL (400 unit/mL) Drops 10 mcg PO DAILY losartan 25 mg tablet 25 mg PO DAILY riluzole 50 mg tablet 50 mg PO .COMPLEX Rx Instructions: 50 mg PO twice daily must be taken on empty stomach; no food 1 hr after or 2- 3 hrs before dose Use Pt's Own Med clopidogrel 75 mg tablet 75 mg PO QDAY Qty: 90 3RF Discontinued levetiracetam [Keppra] 500 mg Tablet 500 mg PO BID beclomethasone diprop (AQ) 42 mcg (0.042 %) [place],Non-Aerosol 1 spray INTRANASAL BID Rx Instructions: administer into each nostril lovastatin 40 mg Tablet 40 mg PO QPM diphenhydramine HCl [Benadryl] 25 mg Capsule 25 mg PO QHS PRN (Reason: Sleep) Referrals / Follow Up: Marcos Nelson MD [Primary Care Provider] - Disposition Disposition (needs filled in before D/C Order can be placed): Acute Care Hospital Charges/Coding Visit Charges Inpatient E&M: 40202 Disch Hosp
--- NOTE | 2022-04-10 11:24 | NURSING ---
1124 Report called to JEWEL Quezada on PCU. Transported via cart to PCU at this time.
--- NOTE | 2022-04-10 11:29 | NURSING ---
pt transferred to PCU by hospital staff. All personal items with pt.
--- NOTE | 2022-04-10 11:35 | NURSING ---
Attempted to contact and daughter. L.M. for daughter to return call to Rehab to provide update.
--- NOTE | 2022-04-10 11:50 | PCM.DC ---
Discharge Instructions Diet Discharge Diet: - (Regular diet with soft and bite size foods and thin liquids. He can not always feed himself due to the ALS and needs to be fed.) Activity Weight Bearing Status: Full weight bearing Follow Up Care When: Return to rehab when he is stable. Test Results: Test results from this visit will be discussed in further detail at your follow-up appointment, if applicable. Discharge Plan Admission Admit Date/Time: 03/31/22 13:24 Primary Reason for Your Visit: debility due to SAH due to a fall and to ALS with recent decline Attending Provider: Hermila Monte Primary Care Provider: Marcos Nelson Consulting Providers: Arias Cosby Chi Discharge Orders/Prescriptions Prescriptions: New atorvastatin 20 mg Tablet 20 mg PO QHS Qty: 1 0RF acetaminophen 500 mg Tablet 1,000 mg PO Q6H PRN PRN (Reason: Pain Score 1-5) Qty: 0 0RF magnesium hydroxide 400 mg/5 mL Suspension 30 ml PO .PRN X 1 PRN (Reason: Constipation) Qty: 0 0RF bisacodyl 10 mg Suppository 10 mg [place] .PRN X 1 PRN (Reason: Constipation) Qty: 0 0RF mirtazapine 15 mg Tablet 15 mg PO QHS Qty: 1 0RF fluticasone propionate 50 mcg/actuation [place],Suspension 2 spray NASAL DAILY Qty: 0 0RF Ensure Plus High Protein 0.08 gram-1.5 kcal/mL Liquid 120 ml PO 4X/DAY Qty: 0 0RF sennosides-docusate sodium [Stool Softener-Stimulant Laxat] 8.6-50 mg Tablet 2 tab PO BID Qty: 0 0RF oxycodone 5 mg Tablet 5 mg PO Q4H PRN PRN (Reason: Pain Score 6-10) Qty: 0 0RF Continued aspirin 81 mg tablet,delayed release (DR/EC) 81 mg PO QDAY omega-3 fatty acids 1,000 mg capsule 1,000 mg PO QDAY timolol maleate 0.5 % drops 1 drp LEFT EYE DAILY 75 Days Qty: 5 latanoprost 0.005 % drops 1 drp LEFT EYE QHS ascorbic acid (vitamin C) 500 mg tablet 500 mg PO DAILY latanoprost 0.005 % Drops 1 drp RIGHT EYE QHS cholecalciferol (vitamin D3) [D-Vi-Sahra] 10 mcg/mL (400 unit/mL) Drops 10 mcg PO DAILY losartan 25 mg tablet 25 mg PO DAILY riluzole 50 mg tablet 50 mg PO .COMPLEX Rx Instructions: 50 mg PO twice daily must be taken on empty stomach; no food 1 hr after or 2-3 hrs before dose Use Pt's Own Med clopidogrel 75 mg tablet 75 mg PO QDAY Qty: 90 3RF Discontinued levetiracetam [Keppra] 500 mg Tablet 500 mg PO BID beclomethasone diprop (AQ) 42 mcg (0.042 %) [place],Non-Aerosol 1 spray INTRANASAL BID Rx Instructions: administer into each nostril lovastatin 40 mg Tablet 40 mg PO QPM diphenhydramine HCl [Benadryl] 25 mg Capsule 25 mg PO QHS PRN (Reason: Sleep) Referrals / Follow Up: Marcos Nelson MD [Primary Care Provider] - Disposition Disposition (needs filled in before D/C Order can be placed): Acute Care Hospital
== END 2022-04-10 11:29 | disposition short-term general hospital (02) | DRG 949 ==
PROVIDERS: Admitting Provider Family Medicine Geriatric Medicine; PCP Family Medicine; Visit Provider Internal Medicine
DX: S06.6XAD Traumatic subarachnoid hemorrhage with loss of consciousness status unknown, subsequent encounter (principal); G12.21 Amyotrophic lateral sclerosis; F03.90 Unspecified dementia, unspecified severity, without behavioral disturbance, psychotic disturbance, mood disturbance, and anxiety; I25.10 Atherosclerotic heart disease of native coronary artery without angina pectoris; E78.5 Hyperlipidemia, unspecified; I10 Essential (primary) hypertension; W10.9XXD Fall (on) (from) unspecified stairs and steps, subsequent encounter; R13.10 Dysphagia, unspecified; H40.9 Unspecified glaucoma; I49.3 Ventricular premature depolarization; Z79.82 Long term (current) use of aspirin; I49.1 Atrial premature depolarization; Z79.02 Long term (current) use of antithrombotics/antiplatelets; F32.A Depression, unspecified; Z79.899 Other long term (current) drug therapy; S06.2XAD Diffuse traumatic brain injury with loss of consciousness status unknown, subsequent encounter
CPT/HCPCS: 36415; 71046; 80048; 80053; 83735; 84100; 85014; 85018; 85025; 92507; 92523; 92526; 92610; 93005; 97110; 97116; 97129; 97130; 97140; 97162; 97166; 97530; 97535; 97802; 99251; G0463

== ENCOUNTER 2022-04-10 14:37 | Inpatient (IN) | payer MEDICARE, OTHER, SELFPAY ==
[2022-04-10 11:35] VITALS: BP 115/76; PULSE 72; RESP 18; TEMP 36.4; O2SAT 96
[2022-04-10 12:31] VITALS: BMI 17.6
[2022-04-10 12:42] VITALS: PULSE 62
--- NOTE | 2022-04-10 12:43 | EKG12_ITS ---
Test Reason : Blood Pressure : / mmHG Vent. Rate : 069 BPM Atrial Rate : 069 BPM P-R Int : 000 ms QRS Dur : 092 ms QT Int : 420 ms P-R-T Axes : 000 062 027 degrees QTc Int : 450 ms Sinus rhythm with PAC's Otherwise normal ECG When compared with ECG of 06-APR-2022 14:32, Current undetermined rhythm precludes rhythm comparison, needs review Confirmed by KAMRON GRAHAM, BERNADETTE ([id number]), commissioning editor MONI BURDICK ([id number]) on 04/13/2022 2:05:23 PM Referred By: LEE Confirmed By:BERNADETTE LUNDY MD
--- NOTE | 2022-04-10 13:08 | ECHOD_ITS ---
Reason For Study: Arrhythmia Procedure This was a 2D Doppler, Color Flow transthoracic echocardiogram. Myocardial strain analysis was performed in this exam to aid in the assessment of cardiac function. The study was technically difficult. Patient scanned supine. Exam performed portable in patient room. Left Ventricle Normal LV size. The estimated ejection fraction is 55-60 %. Right Ventricle Normal right ventricle. Normal systolic function. Atria Normal left atrium. Normal right atrium. Mitral Valve The mitral valve is structurally normal. No prolapse or stenosis seen. Trivial mitral valve insufficiency. Tricuspid Valve Normal tricuspid valve. Trivial tricuspid valve insufficiency. Aortic Valve Normal aortic valve. Pulmonic Valve The pulmonic valve is not well visualized. Great Vessels Normal aortic root. Pericardium/Pleural No pericardial effusion. MMode/2D Measurements & Calculations LVIDd: 3.5 cm IVSd: 1.5 cm Ao root diam: 3.4 cm LVIDs: 1.9 cm LVPWd: 1.0 cm RVDd: 3.5 cm FS: 45.2 % LAV(MOD-bp): 21.4 ml LVAd ap4: 21.8 cm2 LVAd ap2: 18.7 cm2 LAV(MOD-bp) Indexed: 12.6 ml/m2 LVLd ap4: 7.7 cm LVLd ap2: 7.5 cm LAV(MOD-sp2): 14.0 ml EDV(MOD-sp4): 50.9 ml EDV(MOD-sp2): 39.7 ml LAV(MOD-sp4): 27.3 ml EDV(sp4-el): 52.1 ml EDV(sp2-el): 39.6 ml LVAs ap4: 10.5 cm2 LVAs ap2: 9.1 cm2 LVLs ap4: 6.6 cm LVLs ap2: 6.4 cm ESV(MOD-sp4): 14.4 ml ESV(MOD-sp2): 12.3 ml ESV(sp4-el): 14.1 ml ESV(sp2-el): 11.0 ml EF(MOD-sp4): 71.7 % EF(MOD-sp2): 69.0 % EF(sp4-el): 72.9 % SV(MOD-sp4): 36.5 ml SV(MOD-sp2): 27.4 ml SV(sp4-el): 38.0 ml LA dimension(2D): 3.3 cm LA A4 area: 13.0 cm2 RA A4 area: 12.8 cm2 Doppler Measurements & Calculations MV E max sergey: 57.0 cm/sec Lat Peak E' Sergey: 8.7 cm/sec Med Peak E' Sergey: 7.0 cm/sec MV A max sergey: 66.2 cm/sec E/E' lat: 6.6 E/E' med: 8.1 MV E/A: 0.86 Ao V2 max: 94.8 cm/sec LV V1 max: 85.6 cm/sec PA V2 max: 82.3 cm/sec Ao max P.7 mmHg LV V1 max P.0 mmHg TR max sergey: 181.8 cm/sec TR max P.3 mmHg ECHO/Echo Complete Interpretation Summary The estimated ejection fraction is 55-60 %. Normal LV systolc function No significant difference from previous echo Jun 2014 Ordering Physician: Ana Morfin Referring Physician: Gary Nelson MD Performed By: Bhavani Guzman RDCS
[2022-04-10 13:49] LABS: Absolute Lymphocyte Count 1.66 X10^3/uL (0.83-4.51); Absolute Neutrophil Count 3.6 X10^3/uL (2.0-7.7); Basophil# 0.07 X10^3/uL; Basophil% 1.2 % (0-1); Eosinophil# 0.25 X10^3/uL; Eosinophils% 4.1 % (0-5); Hematocrit 34.3 % (40-54); Hemoglobin 11.8 g/dL (13.0-16.5); Lymphocyte # 1.66 X10^3/ul (0.83-4.51); Lymphocyte % 27.5 % (19-41); Mean Corp Hgb Conc 34.4 g/dL (32-36); Mean Corpuscular Hgb 33.1 pg (27.0-32.0); Mean Corpuscular Volume 96.1 fL (80-94); Mean Platelet Vol. 9.4 fl (6.2-12.0); Monocyte# 0.43 X10^3/uL; Monocyte% 7.1 % (0-10); NRBC Flagged by Analyzer 0 % (0-5); Neutrophil # 3.61 X10^3/uL (2.7-7.7); Neutrophil % 59.8 % (47-70); Platelet Count 295 K/mm3 (150-450); RBC Distribution Width CV 12.5 % (11.6-14.6); RBC Distribution Width SD 43.9 fl (35.1-43.9); Red Blood Count 3.57 M/mm3 (4.6-6.2)
[2022-04-10 14:11] LABS: Anion Gap 6 (5-15); BUN 15 mg/dL (7-18); BUN/Creat Ratio 33.6 RATIO (10-20); Calcium,Total 9.3 mg/dL (8.5-10.1); Chloride 105 mmol/L (98-107); Creatinine, Serum 0.45 mg/dL (0.70-1.30); EST Glomerular Filtration Rate 193 mL/min (>60); Est Glom Filt Rate - Afr Amer 234 mL/min (>60); Estimated Creatinine Clearance 46.42 ml/min; Glucose 98 mg/dL (74-106); Magnesium 2.4 mg/dL (1.6-2.6); Potassium 3.9 mmol/L (3.5-5.1); Sodium Level 139 mmol/L (136-145); Thyroid Stim Hormone (TSH) 2.44 uIU/mL (0.358-3.74); Troponin-I HS 233 pg/mL (3.0-78.0)
--- NOTE | 2022-04-10 14:16 | HP.PCM.HOS_ITS ---
HPI - General General Date of Admission: 04/10/22 Date of Service: 04/10/22 Chief Complaint: bradycardia HPI Narrative VIRGIL COLINDRES, is a 81 M with a PMH as outlined who presents as a direct admit from the rehab unit o/a of bradycardia. Marvin is currently at the inpatient rehab unit for subarachnoid hemorrhage ALS and need for intensive therapy. HE had been noted to be episodically bradycardic, with HR going down to the 30s. 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 However, patient would bounce back to normal sinus rhythm. He was working with therapy today and was noted to be bradycardic, with HR going down to the 30s. He was also lightheaded and dizzy. Orthostatics checked were negative. EKG showed no acute ST changes. Last bloodowrk on 04/08/2022 showed normal potassium and magnesium levels. He is being admitted to be managed for symptomatic bradycardia with concerns for heart block. [facility] Medical History (Updated 04/10/22 @ 11:[address] Hermila Monte, ) Abnormal EKG ALS (amyotrophic lateral sclerosis) Atherosclerotic heart disease of [place] coronary artery without angina pectoris Atrial arrhythmia Chest pain Dizziness and giddiness Essential hypertension Family history of hypertension Fatigue Hyperlipidemia Hypertension Long-term use of high-risk medication Palpitations Premature atrial contractions Premature ventricular contraction Unstable angina Home Medications aspirin 81 mg tablet,delayed release 81 mg PO QDAY heart [facility] 07/22/17 [History Last Taken Unknown] omega-3 fatty acids 1,000 mg capsule 1,000 mg PO QDAY Check with primary doctor 07/22/17 [History Last Taken Unknown] latanoprost 0.005 % eye drops 1 drp LEFT EYE QHS Check with primary doctor 04/15/20 [History Last Taken 03/30/22 21:00] timolol maleate 0.5 % eye drops 1 drp LEFT EYE DAILY Check with primary doctor 75 days #5 mL 04/15/20 [History Last Taken 03/31/22 09:00] ascorbic acid (vitamin C) 500 mg tablet 500 mg PO DAILY Check with primary doctor 10/09/21 [History Last Taken Unknown] clopidogrel 75 mg tablet 75 mg PO QDAY #90 tabs 01/19/22 [Rx Last Taken Unknown] cholecalciferol (vitamin D3) 10 mcg/mL (400 unit/mL) oral drops (D-Vi-Sahra) 10 mcg PO DAILY Check with primary doctor 03/31/22 [History Last Taken Unknown] losartan 25 mg tablet 25 mg PO DAILY BP 03/31/22 [History Last Taken Unknown] riluzole 50 mg tablet 50 mg PO .COMPLEX ALS 03/31/22 [History Last Taken 03/31/22 06:00] acetaminophen 500 mg tablet 1,000 mg PO Q6H PRN PRN Pain Score 1-5 #0 tabs 04/10/22 [Rx Last Taken Unknown] atorvastatin 20 mg tablet 20 mg PO QHS cholesterol 04/10/22 [History Last Taken Unknown] bisacodyl 10 mg rectal suppository 10 mg IN .PRN X 1 PRN Constipation #0 ea 04/10/22 [Rx Last Taken Unknown] fluticasone propionate 50 mcg/actuation nasal spray,suspension 2 spray NASAL DAILY #0 grams 04/10/22 [Rx Last Taken Unknown] food supplemt, lactose-reduced 0.08 gram-1.5 kcal/mL oral liquid (Ensure Plus High Protein) 120 ml PO 4X/DAY #0 mL 04/10/22 [Rx Last Taken Unknown] magnesium hydroxide 400 mg/5 mL oral suspension 30 ml PO .PRN X 1 PRN Constipation #0 mL 04/10/22 [Rx Last Taken Unknown] mirtazapine 15 mg tablet 15 mg PO QHS restless legs 04/10/22 [History Last Taken Unknown] oxycodone 5 mg tablet 5 mg PO Q4H PRN PRN Pain Score 6-10 #0 tabs 04/10/22 [Rx Last Taken Unknown] sennosides 8.6 mg-docusate sodium 50 mg tablet (Stool Softener-Stimulant Laxative) 2 tab PO BID stool softner 04/10/22 [History Last Taken Unknown] Allergy/AdvReac Type Severity Reaction Status Date / Time nitroglycerin AdvReac Severe Low BP, Verified 03/24/22 22:11 near syncope Family History Father Myocardial infarction CAD (coronary artery disease) Surgical History History of repair of rotator cuff Hx of appendectomy Presence of stent in coronary artery (~08/2014) Social History household members: spouse Smoking Status: Never smoker how long ago did patient quit smokin years ago second hand exposure: No alcohol intake: current alcohol intake frequency: 0-2 drinks per day Alcohol type: wine and hard liquor substance use type: does not use caffeine: Yes Type: coffee Number of servings: 1 ROS Review of Systems ROS Unobtainable: Denies due to encephalopathy Constitutional Constitutional: Denies anorexia, chills, fatigue, fever(s), malaise or weakness Eyes Eyes: Denies change in vision ENT HEENT: Denies dysphagia, headache(s), nasal discharge or sore throat Cardiovascular Cardiovascular: Reports lightheadedness and other Details: bradycardia ; Denies chest pain, dyspnea on exertion, edema, orthopnea, palpitations, paroxysmal nocturnal dyspnea, rapid heart rate or syncope Respiratory/Chest Respiratory/Chest: Denies cough, dyspnea, productive cough, shortness of breath at rest or shortness of breath with exertion Gastrointestinal Gastrointestinal: Denies abdominal pain, constipation or diarrhea Genitourinary Genitourinary: Denies burning urination or dysuria Musculoskeletal Musculoskeletal: Denies arthralgias Neurologic Neurologic: Reports dizziness; Denies confusion, focal weakness, headache(s), numbness, seizures, syncope, tingling or tremor(s) Psychiatric Psychiatric: Denies anxiety Endocrine Endocrinology: Denies change in body appearance Hematologic/Lymphatic Hematologic/Lymphatic: Denies anemia Vital Signs Vital Signs Vital Signs: 04/10/22 12:40 04/10/22 12:42 Pulse Rate 62 Respiratory Effort Normal Non-Labored Respiratory Depth Normal Respiratory Pattern Normal Oxygen Delivery Method Room Air Weight Weight: 122 lb 12.76 oz Body Mass Index (BMI) 17.6 Physical Exam Const alert, oriented x3 and no apparent distress Constitutional Narrative: frail General Appearance: cooperative HEENT normocephalic, head/scalp atraumatic, hearing grossly normal bilaterally and moist oral mucous membranes Mouth: oral and palatal mucosa normal Eyes PERRL, EOMs intact bilaterally and conjunctivae normal Neck no lymphadenopathy and supple Resp normal respiratory effort, no retractions, no use of accessory muscles and clear to auscultation bilaterally Cardio regular rate, regular rhythm, S1 normal heart sound, S2 normal heart sound and no murmurs GI normal to inspection, nondistended, normoactive bowel sounds, soft to palpation, non-tender and non-distended Extremity normal to inspection, full ROM and no clubbing, cyanosis or edema Neuro oriented x3, CN's II-XII intact bilaterally, moves all extremities and no focal motor deficits Sensorium / Orientation: awake and alert Motor Exam: strength 5/5 throughout Psych affect normal Results Lab / Micro Data Result Diagrams: 04/10/22 13:30 04/10/22 13:30 Labs: Laboratory Results - last 24 hr 04/10/22 13:30: Sodium 139, Potassium 3.9, Chloride 105, Carbon Dioxide 28.0, Anion Gap 6, BUN 15, Creatinine 0.45 L, Estim Creat Clear Calc 46.42, Est GFR (MDRD) Af Amer 234, Est GFR (MDRD) Non-Af 193, BUN/Creatinine Ratio 33.6 H, Glucose 98, Calcium 9.3, Magnesium 2.4, TSH 2.44 04/10/22 13:30: WBC 6.0, RBC 3.57 L, Hgb 11.8 L, Hct 34.3 L, MCV 96.1 H, MCH 33.1 H, MCHC 34.4, RDW Std Deviation 43.9, RDW Coeff of Amanda 12.5, Plt Count 295, MPV 9.4, Immature Gran % (Auto) 0.300, Neut % (Auto) 59.8, Lymph % (Auto) 27.5, Prentiss % (Auto) 7.1, Eos % (Auto) 4.1, Baso % (Auto) 1.2 H, Absolute Neuts (auto) 3.6, Absolute Lymphs (auto) 1.66, Nucleated RBC % 0 04/10/22 13:30: Troponin I High Sens 233 H* Assessment & Plan Assessment/Plan (1) Symptomatic bradycardia: (2) Traumatic subarachnoid hemorrhage: (3) Fall: PLAN: Plan #Symptomatic bradycardia * direct admit from rehab * has had episodic bradycardia several times, with dizziness and near syncope. * EKG shows mild sinus bradycardia;EKG done in the rehab unit showed bigeminal atrial rhythm and heart rate even went as low as the 30s in the rehab * check CBC, BMP and magnesium * 2D echo ordered * consult cardiology * cycle troponins * #Nonstemi * initial troponin is 233. * cycle troponins * hold off on lovenox in light of subarachnoid hemorrhage * aspirin, plavix and high intensity statin; he already received his aspirin and plavix today * his aspirin and statin had been resumed in the rehab unit * 2D echo ordered. * cardiology consulted * #Traumatic subarachnoid hemorrhage * fell whilst going up the stairs of his house on 03/31/2022> he sustained a focal subarachnoid hemorrhage and parenchymal hemorrhage of the left frontal and temporal lobes of hte brain. * aspirin and plavix held. * PT/OT on board. Fall precautions * #History of CAD: * aspirin and plavix held initially due to subarachnoid hemorrhage. these have now been resumed. * on intensity statin; will switch to high intensity statin #ALS: on riluzole #Hypertension; on losartan DVT prophylaxis: SCDs Code status: will maintain patient as full code, as he was in the rehab unit. Daughter Saloni Colindres updated by phone Charges/Coding Visit Charges Inpatient E&M: 44997 Init Hosp L3
[2022-04-10] MEDS: Ensure Plus High Protein 120 ML LIQUID PO ×3 (14:17→20:10)
[2022-04-10] MEDS: 0.9% Normal Saline 1,000 ML 75 ML IV (14:17)
[2022-04-10] MEDS: 0.9% Saline Lock 10 ML Syringe IV (14:17)
--- NOTE | 2022-04-10 14:18 | CON.PCM.CA_ITS ---
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 He is not on any rate limiting medications. * Echocardiogram is pending * Would recommend continuing monitor overnight with telemetry. * At discharge would recommend 30-day event monitor for further evaluation of rhythm and to follow-up on an outpatient basis. (2) Atherosclerotic heart disease of [place] coronary artery without angina pectoris: QUALIFIERS: [place] vs. transplanted heart: [place] heart Qualified Code(s): I25.10 - Atherosclerotic heart disease of [place] coronary artery without angina pectoris PLAN: * Patient currently does not have any symptoms of angina. He will continue with his aspirin, Plavix, and atorvastatin and losartan. He is not on any rate limiting medications. (3) Premature atrial contractions: PLAN: * PACs are not a new finding for patient. 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 We will continue to m onitor. (6) Hyperlipidemia: PLAN: * Will continue with atorvastatin (7) Non-ST elevation (NSTEMI) myocardial infarction: HPI Consult Data Date of Consult: 04/10/22 HPI Narrative HPI Narrative: VIRGIL COLINDRES, is a 81 M who presented to [facility] ER for concerns over bradycardia. He does have a history of underlying CAD, status post PTCA/ANDREW to the distal LAD (2008), PTCA/ANDREW to the right posterior lateral segment (2009), PTCA/ANDREW to the mid LAD (2014), superimposed upon PACs/PVCs, hyperlipidemia, hypertension, and ALS. On 03/24/2022 he presented to [facility] for a fall. he was noted to have a traumatic subarachnoid hemorrhage and was transferred to [facility]. His Plavix and ASA were held for 2 weeks. He was felt to be a non surgical candidate for surgery. He was transferred to the extended rehab on the 4th floor on 03/31/2022. Today while he was on the nu-step he became dizzy and lightheaded. It was noted that he his HR was in the 30-40's. He was sent to the ER for further evaluation and is no admitted for further observation. [facility] Medical History (Updated 04/10/22 @ 17:[address] Gia Ortiz MD) Abnormal EKG ALS (amyotrophic lateral sclerosis) Atherosclerotic heart disease of [place] coronary artery without angina pectoris Atrial arrhythmia Chest pain Dizziness and giddiness Essential hypertension Family history of hypertension Fatigue Hyperlipidemia Hypertension Long-term use of high-risk medication Palpitations Premature atrial contractions Premature ventricular contraction Unstable angina Home Medications aspirin 81 mg tablet,delayed release 81 mg PO QDAY heart health 07/22/17 [History Last Taken Unknown] omega-3 fatty acids 1,000 mg capsule 1,000 mg PO QDAY Check with primary doctor 07/22/17 [History Last Taken Unknown] latanoprost 0.005 % eye drops 1 drp LEFT EYE QHS Check with primary doctor [History Last Taken 03/30/22 21:00] timolol maleate 0.5 % eye drops 1 drp LEFT EYE DAILY Check with primary doctor 75 days #5 mL 04/15/20 [History Last Taken 03/31/22 09:00] ascorbic acid (vitamin C) 500 mg tablet 500 mg PO DAILY Check with primary doctor 10/09/21 [History Last Taken Unknown] clopidogrel 75 mg tablet 75 mg PO QDAY #90 tabs 01/19/22 [Rx Last Taken Unknown] cholecalciferol (vitamin D3) 10 mcg/mL (400 unit/mL) oral drops (D-Vi-Sahra) 10 mcg PO DAILY Check with primary doctor 03/31/22 [History Last Taken Unknown] losartan 25 mg tablet 25 mg PO DAILY BP 03/31/22 [History Last Taken Unknown] riluzole 50 mg tablet 50 mg PO .COMPLEX ALS 03/31/22 [History Last Taken 03/31/22 06:00] acetaminophen 500 mg tablet 1,000 mg PO Q6H PRN PRN Pain Score 1-5 #0 tabs 04/10/22 [Rx Last Taken Unknown] atorvastatin 20 mg tablet 20 mg PO QHS cholesterol 04/10/22 [History Last Taken Unknown] bisacodyl 10 mg rectal suppository 10 mg [place] .PRN X 1 PRN Constipation #0 ea 04/10/22 [Rx Last Taken Unknown] fluticasone propionate 50 mcg/actuation nasal spray,suspension 2 spray NASAL DAILY #0 grams 04/10/22 [Rx Last Taken Unknown] food supplemt, lactose-reduced 0.08 gram-1.5 kcal/mL oral liquid (Ensure Plus High Protein) 120 ml PO 4X/DAY #0 mL 04/10/22 [Rx Last Taken Unknown] magnesium hydroxide 400 mg/5 mL oral suspension 30 ml PO .PRN X 1 PRN Constipation #0 mL 04/10/22 [Rx Last Taken Unknown] mirtazapine 15 mg tablet 15 mg PO QHS restless legs 04/10/22 [History Last Taken Unknown] oxycodone 5 mg tablet 5 mg PO Q4H PRN PRN Pain Score 6-10 #0 tabs 04/10/22 [Rx Last Taken Unknown] sennosides 8.6 mg-docusate sodium 50 mg tablet (Stool Softener-Stimulant Laxative) 2 tab PO BID stool softner 04/10/22 [History Last Taken Unknown] Allergy/AdvReac Type Severity Reaction Status Date / Time nitroglycerin AdvReac Severe Low BP, Verified 03/24/22 22:11 near syncope Family History Father Myocardial infarction CAD (coronary artery disease) Surgical History History of repair of rotator cuff Hx of appendectomy Presence of stent in coronary artery (~08/2014) Social History household members: spouse Smoking Status: Never smoker how long ago did patient quit smokin years ago second hand exposure: No alcohol intake: current alcohol intake frequency: 0-2 drinks per day Alcohol type: wine and hard liquor substance use type: does not use caffeine: Yes Type: coffee Number of servings: 1 ROS Constitutional Constitutional: Denies chills, fever(s) or weight gain ENT HEENT: Denies headache(s), nasal congestion or nasal discharge Cardiovascular Cardiovascular: Denies chest pain or palpitations Respiratory/Chest Respiratory/Chest: Denies cough, excessive phlegm production or shortness of breath with exertion Gastrointestinal Gastrointestinal: Denies abdominal pain, nausea or vomiting Genitourinary Genitourinary: Denies dysuria Musculoskeletal Musculoskeletal: Denies joint pain or joint swelling Integumentary Integumentary: Denies rash or wounds Neurologic Neurologic: Denies focal weakness, numbness or tingling Psychiatric Psychiatric: Denies anxiety, auditory hallucinations, depression, homicidal ideation or suicidal ideation Physical Exam Const alert, oriented x3 and no apparent distress Constitutional Narrative: [facility] General Appearance: frail HEENT normocephalic, head/scalp atraumatic, hearing grossly normal bilaterally, external ears normal, external nose normal and moist oral mucous membranes Eyes PERRL, EOMs intact bilaterally, conjunctivae normal and no scleral icterus Neck no lymphadenopathy, supple and no JVD Resp normal respiratory effort and clear to auscultation bilaterally Cardio regular rate, regular rhythm, S1 normal heart sound, S2 normal heart sound, no murmurs, no rub, no gallops, no clicks, no JVD and peripheral pulses 2+ throughout Cardio Narrative: frequent ectopic beats GI normal to inspection, nondistended, normoactive bowel sounds, soft to palpation, non-tender and non-distended Extremity normal to inspection, normal capillary refill, no clubbing, cyanosis or edema and no pedal edema Neuro oriented x3, CN's II-XII intact bilaterally, moves all extremities and no focal motor deficits Psych cooperative and affect normal Risk Stratification Risk Stratification Applicable: No Charges/Coding Visit Charges Office Visits / Consults: 94185 IP Consult L3 Objective Data Vital Signs: Vital Signs Pulse O2 Del Method 62 Room Air 04/10/22 12:42 04/10/22 12:40 Oxygen Delivery Method Room Air Weight: 122 lb 12.76 oz Body Mass Index (BMI) 17.6 Lab / Micro Data Result Diagrams: 04/10/22 13:30 04/10/22 13:30 Labs: Laboratory Results - last 24 hr 04/10/22 13:30: Sodium 139, Potassium 3.9, Chloride 105, Carbon Dioxide 28.0, Anion Gap 6, BUN 15, Creatinine 0.45 L, Estim Creat Clear Calc 46.42, Est GFR (MDRD) Af Amer 234, Est GFR (MDRD) Non-Af 193, BUN/Creatinine Ratio 33.6 H, Glucose 98, Calcium 9.3, Magnesium 2.4, TSH 2.44 04/10/22 13:30: WBC 6.0, RBC 3.57 L, Hgb 11.8 L, Hct 34.3 L, MCV 96.1 H, MCH 33.1 H, MCHC 34.4, RDW Std Deviation 43.9, RDW Coeff of Amanda 12.5, Plt Count 295, MPV 9.4, Immature Gran % (Auto) 0.300, Neut % (Auto) 59.8, Lymph % (Auto) 27.5, Pope % (Auto) 7.1, Eos % (Auto) 4.1, Baso % (Auto) 1.2 H, Absolute Neuts (auto) 3.6, Absolute Lymphs (auto) 1.66, Nucleated RBC % 0 04/10/22 13:30: Troponin I High Sens 233 H* Cardiology Labs/Tests 04/10/22 13:30: Sodium 139, Potassium 3.9, Chloride 105, Carbon Dioxide 28.0, Anion Gap 6, BUN 15, Creatinine 0.45 L, Est GFR (MDRD) Af Amer 234, Est GFR (MDRD) Non-Af 193, BUN/Creatinine Ratio 33.6 H, Glucose 98, Calcium 9.3, Magnesium 2.4 04/10/22 13:30: WBC 6.0, RBC 3.57 L, Hgb 11.8 L, Hct 34.3 L, MCV 96.1 H, MCH 33.1 H, MCHC 34.4, Plt Count 295, MPV 9.4, Immature Gran % (Auto) 0.300, Neut % (Auto) 59.8, Lymph % (Auto) 27.5, [place] % (Auto) 7.1, Eos % (Auto) 4.1, Baso % (Auto) 1.2 H, Absolute Neuts (auto) 3.6, Nucleated RBC % 0 Rhythm: SR with frequent PACs Documented by User: Dr. Gia Ortiz MD 04/10/22 17:19 Assessment & Plan Assessment/Plan (1) Symptomatic bradycardia: (2) Atherosclerotic heart disease of [place] coronary artery without angina pectoris: QUALIFIERS: [place] vs. transplanted heart: [place] heart Qualified Code(s): I25.10 - Atherosclerotic heart disease of [place] coronary artery without angina pectoris (3) Premature atrial contractions: (4) Premature ventricular contraction: (5) Essential hypertension: (6) Hyperlipidemia: (7) Non-ST elevation (NSTEMI) myocardial infarction: PLAN: 81-year-old patient with a recent fall, sustaining a subdural hematoma I reviewed all his records here in the hospital including the EKG, case monitor, cardiac enzymes, echocardiogram and his current medication and his past medical history/with PCI and stent 1999 Had known history of CAD with prior PCI and stent 2008 and 2009, RCA and LAD I discussed with the primary locksmith Dr. Braun, patient has severe coronary calcification and has a complex coronary intervention to LAD and the RCA This presentation he has a fall and has sinus bradycardia with first-degree AV block and PACs Noted patient currently on dual antiplatelet therapy with aspirin and Plavix He does not have any active chest pain I will be cautious about any further anticoagulation due to the risk of worsening of subdural hematoma Cardiac care plan; 1. We will keep a series of high sensitive troponins I will continue to monitor on telemetry. 2. Echocardiogram revealed normal LV systolic function with no significant valve abnormality. 3. Further cardiac evaluation, left heart cath will be set up at the tertiary facility after discussion with the patient and the . HPI Consult Data Date of Consult: 04/10/22 [facility] Medical History (Updated 04/10/22 @ 17:[address] Gia Ortiz MD) Abnormal EKG ALS (amyotrophic lateral sclerosis) Atherosclerotic heart disease of [place] coronary artery without angina pectoris Atrial arrhythmia Chest pain Dizziness and giddiness Essential hypertension Family history of hypertension Fatigue Hyperlipidemia Hypertension Long-term use of high-risk medication Palpitations Premature atrial contractions Premature ventricular contraction Unstable angina Home Medications aspirin 81 mg tablet,delayed release 81 mg PO QDAY heart [facility] 07/22/17 [History Last Taken Unknown] omega-3 fatty acids 1,000 mg capsule 1,000 mg PO QDAY Check with primary doctor 07/22/17 [History Last Taken Unknown] latanoprost 0.005 % eye drops 1 drp LEFT EYE QHS Check with primary doctor 04/15/20 [History Last Taken 03/30/22 21:00] timolol maleate 0.5 % eye drops 1 drp LEFT EYE DAILY Check with primary doctor 75 days #5 mL 04/15/20 [History Last Taken 03/31/22 09:00] ascorbic acid (vitamin C) 500 mg tablet 500 mg PO DAILY Check with primary doctor 10/09/21 [History Last Taken Unknown] clopidogrel 75 mg tablet 75 mg PO QDAY #90 tabs 01/19/22 [Rx Last Taken Unknown] cholecalciferol (vitamin D3) 10 mcg/mL (400 unit/mL) oral drops (D-Vi-Sahra) 10 mcg PO DAILY Check with primary doctor 03/31/22 [History Last Taken Unknown] losartan 25 mg tablet 25 mg PO DAILY BP 03/31/22 [History Last Taken Unknown] riluzole 50 mg tablet 50 mg PO .COMPLEX ALS 03/31/22 [History Last Taken 03/31/22 06:00] acetaminophen 500 mg tablet 1,000 mg PO Q6H PRN PRN Pain Score 1-5 #0 tabs 04/10/22 [Rx Last Taken Unknown] atorvastatin 20 mg tablet 20 mg PO QHS cholesterol 04/10/22 [History Last Taken Unknown] bisacodyl 10 mg rectal suppository 10 mg [place] .PRN X 1 PRN Constipation #0 ea 04/10/22 [Rx Last Taken Unknown] fluticasone propionate 50 mcg/actuation nasal spray,suspension 2 spray NASAL DAILY #0 grams 04/10/22 [Rx Last Taken Unknown] food supplemt, lactose-reduced 0.08 gram-1.5 kcal/mL oral liquid (Ensure Plus High Protein) 120 ml PO 4X/DAY #0 mL 04/10/22 [Rx Last Taken Unknown] magnesium hydroxide 400 mg/5 mL oral suspension 30 ml PO .PRN X 1 PRN Constipation #0 mL 04/10/22 [Rx Last Taken Unknown] mirtazapine 15 mg tablet 15 mg PO QHS restless legs 04/10/22 [History Last Taken Unknown] oxycodone 5 mg tablet 5 mg PO Q4H PRN PRN Pain Score 6-10 #0 tabs 04/10/22 [Rx Last Taken Unknown] sennosides 8.6 mg-docusate sodium 50 mg tablet (Stool Softener-Stimulant Laxative) 2 tab PO BID stool softner 04/10/22 [History Last Taken Unknown] Allergy/AdvReac Type Severity Reaction Status Date / Time nitroglycerin AdvReac Severe Low BP, Verified 03/24/22 22:11 near syncope Family History Father Myocardial infarction CAD (coronary artery disease) Surgical History History of repair of rotator cuff Hx of appendectomy Presence of stent in coronary artery (~08/2014) Social History household members: spouse Smoking Status: Never smoker how long ago did patient quit smokin years ago second hand exposure: No alcohol intake: current alcohol intake frequency: 0-2 drinks per day Alcohol type: wine and hard liquor substance use type: does not use caffeine: Yes Type: coffee Number of servings: 1 Lab / Micro Data Result Diagrams: 04/10/22 13:30 04/10/22 13:30
--- NOTE | 2022-04-10 14:39 | CASEMGMT ---
Addendum entered by Toña Oconnor 04/10/22 14:58: SW met with patient, his , and her caregiver. SW introduced self and role at [facility]. SW let them know SW will be working with them on the next step after discharge. They were appreciative and asked that SW contact their daughter Saloni. Saloni is the main decision maker. Saloni lives in [place]. SW contacted Saloni. Introduced self and role at [facility]. PARESH let Saloni know that there will be a bed for patient in [facility] Wednesday. SW then explained it would make more sense and be less transitioning for patient if he went from [facility] to [facility]. SW answered Saloni's questions. SW let Saloni know SW will follow up with her on Wednesday. Plan: D/c back to Inpatient Rehab, but not until Wednesday versus [facility] as early as Wednesday. Toña ROJAS Original Note: PARESH spoke with Samantha in Rehab and they could take patient back, but not until Wednesday. Samantha also notified PARESH that the plan is for patient to go to [facility] on 04-16. PARESH called Eulalia at [facility] and left her a voice mail letting her know patient is now on the acute side and PARESH will follow up with her as patient may come to [facility] before the . PARESH will talk with family regarding plan. Toña ROJAS
[2022-04-10 14:57] VITALS: PULSE 61
[2022-04-10 16:06] LABS: Troponin-I HS 231 pg/mL (3.0-78.0)
[2022-04-10 16:55] VITALS: BP 134/80; PULSE 60; RESP 18; TEMP 36.8; O2SAT 95
[2022-04-10] MEDS: Atorvastatin Calcium 40 MG Tablet PO (16:57)
[2022-04-10 19:01] VITALS: PULSE 87
[2022-04-10 19:57] LABS: Troponin-I HS 186 pg/mL (3.0-78.0)
--- NOTE | 2022-04-10 19:57 | NURSING ---
Lab called with critical troponin result of 115, informed pt's nurse Taylor of result
[2022-04-10 20:01] VITALS: BP 156/92; PULSE 86; RESP 18; TEMP 36.2; O2SAT 98
[2022-04-10] MEDS: Mirtazapine 15 MG Tablet PO (20:10)
[2022-04-10] MEDS: RILUZOLE 50 MG TABLET PO (20:10)
[2022-04-10] MEDS: Latanoprost 0.005% 1 Bottle 1 DRP LEFT EYE (20:10)
[2022-04-11] VITALS (8 sets, daily range): BP systolic 122–143; BP diastolic 71–80; PULSE 61–94; RESP 16–18; TEMP 35.8–36.5; O2SAT 96–99
[2022-04-11 06:53] LABS: Absolute Neutrophil Count 3.8 X10^3/uL (2.0-7.7); Basophil# 0.07 X10^3/uL; Basophil% 1.1 % (0-1); Eosinophil# 0.33 X10^3/uL; Eosinophils% 5.4 % (0-5); Hematocrit 35.5 % (40-54); Lymphocyte % 24.5 % (19-41); Mean Corp Hgb Conc 33.8 g/dL (32-36); Mean Corpuscular Hgb 32.5 pg (27.0-32.0); Mean Corpuscular Volume 96.2 fL (80-94); Mean Platelet Vol. 9.7 fl (6.2-12.0); Monocyte# 0.42 X10^3/uL; Monocyte% 6.9 % (0-10); NRBC Flagged by Analyzer 0 % (0-5); Neutrophil # 3.79 X10^3/uL (2.7-7.7); Neutrophil % 61.9 % (47-70); Platelet Count 270 K/mm3 (150-450); RBC Distribution Width CV 12.4 % (11.6-14.6); RBC Distribution Width SD 42.9 fl (35.1-43.9); Red Blood Count 3.69 M/mm3 (4.6-6.2); White Blood Count 6.1 K/mm3 (4.4-11.0)
[2022-04-11 07:32] LABS: Anion Gap 4 (5-15); BUN 11 mg/dL (7-18); BUN/Creat Ratio 25.9 RATIO (10-20); Calcium,Total 8.9 mg/dL (8.5-10.1); Chloride 106 mmol/L (98-107); Creatinine, Serum 0.42 mg/dL (0.70-1.30); EST Glomerular Filtration Rate 205 mL/min (>60); Est Glom Filt Rate - Afr Amer 248 mL/min (>60); Estimated Creatinine Clearance 46.42 ml/min; Glucose 94 mg/dL (74-106); Magnesium 2.1 mg/dL (1.6-2.6); Potassium 3.5 mmol/L (3.5-5.1); Sodium Level 138 mmol/L (136-145)
[2022-04-11] MEDS: Aspirin E.C. 81 MG Tablet PO (07:35)
[2022-04-11] MEDS: Senna/Docusate Sodium 1 Tablet 2 TABLET PO (09:14)
[2022-04-11] MEDS: Omega-3 Acid Ethyl Esters 1 GM Capsule PO (09:14)
[2022-04-11] MEDS: Fluticasone 0.05% 1 SPRAY NASAL.SRY 2 SPRAY NASAL (09:15)
[2022-04-11] MEDS: Clopidogrel Bisulfate 75 MG Tablet PO (09:15)
[2022-04-11] MEDS: RILUZOLE 50 MG TABLET PO ×2 (09:15→21:08)
[2022-04-11] MEDS: Losartan Potassium 25 MG Tablet PO (09:15)
[2022-04-11] MEDS: Cholecalciferol (VIT D3) 25 MCG TABLET (1,000 UNITS) PO (09:15)
[2022-04-11] MEDS: Ensure Plus High Protein 120 ML LIQUID PO ×3 (09:15→17:26)
[2022-04-11] MEDS: Timolol 0.5% 5ML OPTH.BTL 1 DRP LEFT EYE (09:15)
[2022-04-11] MEDS: Ascorbic Acid 500 MG Tablet PO (09:15)
--- NOTE | 2022-04-11 13:48 | PN.HOSP_ITS ---
Subjective Subjective Patient seen and examined. He has no active complaints and had uneventful night. REview of systems was otherwise negative. Labs and vitals reviewed. Troponins trended down slightly overnight. He hasnt been bradycardic overnight. Objective Data Objective Data Vital Signs: Vital Signs Temp Pulse Resp BP Pulse Ox O2 Del Method 97.7 F L 62 16 122/80 H 96 Room Air 04/11/22 08:50 04/11/22 08:50 04/11/22 08:50 04/11/22 08:50 04/11/22 08:50 04/11/22 08:50 Oxygen Delivery Method Room Air Weight: 122 lb 12.76 oz Body Mass Index (BMI) 17.6 Intake & Output: Intake and Output for Last 24 Hours 04/09/22 04/10/22 04/11/22 23:59 23:59 23:59 Intake Total 400 / 400 1550 / 1550 Output Total 300 / 400 500 / 500 Balance 100 / 0 1050 / 1050 Medical Nutrition Assessment Dietitian: Malnutrition Criteria Met Start: 04/10/22 15:15 Freq: Status: Active Protocol: Document 04/10/22 15:15 AG (Rec: 04/10/22 15:15 AG [id number]) Nutrition Malnutrition Evidence of Malnutrition Exists Yes Malnutrition (severe): Chronic Evidenced By Suboptimal Energy Intake ( Severe),Weight Loss (Severe), Physical Changes (Moderate) Clinical Problem Acute Disease or Injury Related Malnutrition Etiology severe, acute malnutrition r/t inadequate energy intake Signs/Symptoms as evidenced by unintentional 17.2#/12% wt loss < 1 month; Moderate muscle wasting/fat loss evident per physical exam in orbital, temporal, clavicle, acromion, and temporal areas; BMI 17.6; estimated PO intake meeting < 50% of estimated energy needs Status Active Problem Recommendation Dietitian Recommendations/Changes Regular diet given severe malnutrition; will add soft and bite sized modification per RU COMMUNICATION STUDIES PROFESSOR recommendation. COMMUNICATION STUDIES PROFESSOR consulted to follow during acute stay. Continue ensure plus high protein w/ medpass; will add ensure pudding and magic cup w / meals for additional calories/protein if consumed. Lab / Micro Data Result Diagrams: 04/11/22 05:40 04/11/22 05:40 Labs: Laboratory Results - last 24 hr 04/10/22 13:30: Sodium 139, Potassium 3.9, Chloride 105, Carbon Dioxide 28.0, Anion Gap 6, BUN 15, Creatinine 0.45 L, Estim Creat Clear Calc 46.42, Est GFR (MDRD) Af Amer 234, Est GFR (MDRD) Non-Af 193, BUN/Creatinine Ratio 33.6 H, Glucose 98, Calcium 9.3, Magnesium 2.4, TSH 2.44 04/10/22 13:30: WBC 6.0, RBC 3.57 L, Hgb 11.8 L, Hct 34.3 L, MCV 96.1 H, MCH 33.1 H, MCHC 34.4, RDW Std Deviation 43.9, RDW Coeff of Amanda 12.5, Plt Count 295, MPV 9.4, Immature Gran % (Auto) 0.300, Neut % (Auto) 59.8, Lymph % (Auto) 27.5, [place] % (Auto) 7.1, Eos % (Auto) 4.1, Baso % (Auto) 1.2 H, Absolute Neuts (auto) 3.6, Absolute Lymphs (auto) 1.66, Nucleated RBC % 0 04/10/22 13:30: Troponin I High Sens 233 H* 04/10/22 15:30: Troponin I High Sens 231 H* 04/10/22 19:25: Troponin I High Sens 186 H* 04/11/22 05:40: WBC 6.1, RBC 3.69 L, Hgb 12.0 L, Hct 35.5 L, MCV 96.2 H, MCH 32.5 H, MCHC 33.8, RDW Std Deviation 42.9, RDW Coeff of Amanda 12.4, Plt Count 270, MPV 9.7, Immature Gran % (Auto) 0.200, Neut % (Auto) 61.9, Lymph % (Auto) 24.5, [place] % (Auto) 6.9, Eos % (Auto) 5.4 H, Baso % (Auto) 1.1 H, Absolute Neuts (auto) 3.8, Absolute Lymphs (auto) 1.50, Nucleated RBC % 0 04/11/22 05:40: Sodium 138, Potassium 3.5, Chloride 106, Carbon Dioxide 28.0, Anion Gap 4 L, BUN 11, Creatinine 0.42 L, Estim Creat Clear Calc 46.42, Est GFR (MDRD) Af Amer 248, Est GFR (MDRD) Non-Af 205, BUN/Creatinine Ratio 25.9 H, Glucose 94, Calcium 8.9, Magnesium 2.1 Radiography Diagnostic Testing: Radiology Impression Echocardiogram 04/10/22 13:08 Interpretation Summary The estimated ejection fraction is 55-60 %. Normal LV systolc function No significant difference from previous echo Jun 2014 Ordering Physician: Ana Morfin Referring Physician: Gary Nelson MD Performed By: Bhavani Guzman RDCS Physical Exam Const alert, oriented x3 and no apparent distress Constitutional Narrative: frail General Appearance: cooperative HEENT head/scalp atraumatic and moist oral mucous membranes Head and Scalp: normocephalic Mouth: oral and palatal mucosa normal Eyes PERRL, EOMs intact bilaterally and conjunctivae normal Neck no lymphadenopathy and supple Resp normal respiratory effort, no retractions, no use of accessory muscles and clear to auscultation bilaterally Cardio regular rate, regular rhythm, S1 normal heart sound, S2 normal heart sound and no murmurs GI normal to inspection, nondistended, normoactive bowel sounds, soft to palpation, non-tender and non-distended Extremity normal to inspection, full ROM and no clubbing, cyanosis or edema Neuro oriented x3, CN's II-XII intact bilaterally, moves all extremities and no focal motor deficits Sensorium / Orientation: awake and alert Motor Exam: strength 5/5 throughout Psych affect normal Assessment & Plan Assessment/Plan (1) Symptomatic bradycardia: (2) Traumatic subarachnoid hemorrhage: (3) Fall: PLAN: Plan #Symptomatic bradycardia * hasnt been bradycardic overnight. * 2D echo: EF is 55-60%, normal LV systolic function. * EKG shows mild sinus bradycardia;EKG done in the rehab unit showed bigeminal atrial rhythm and heart rate even went as low as the 30s in the rehab * check CBC, BMP and magnesium * cardiology on board; recommends 30 day event monitor on discharge * consult cardiology * cycle troponins * #Nonstemi * initial troponin is 233 and trended downwards to 231, then 186. * on aspirin, plavix and high intensity statin * cardiology on board: has history of CAD with stents. * per cardiology, to discuss with patient's if they want him to have cardiac cath, will need to be transferred for the cath. * 2D echo as above * #Traumatic subarachnoid hemorrhage * fell whilst going up the stairs of his house on 03/31/2022> he sustained a focal subarachnoid hemorrhage and parenchymal hemorrhage of the left frontal and temporal lobes of hte brain. * aspirin and plavix held. * PT/OT on board. Fall precautions * #History of CAD: * aspirin and plavix held initially due to subarachnoid hemorrhage. these have now been resumed. * on intensity statin; will switch to high intensity statin #ALS: on riluzole #Hypertension; on losartan DVT prophylaxis: SCDs Code status: will maintain patient as full code, as he was in the rehab unit. Charges/Coding Visit Charges Inpatient E&M: 30806 Subs Hosp L2
--- NOTE | 2022-04-11 14:57 | PCM.PN.CARD ---
Subjective Subjective Seen evaluated at bedside today Comfortable no symptoms reported no chest pain Objective Data Vital Signs: Vital Signs Temp Pulse Resp BP Pulse Ox O2 Del Method 97.7 F L 62 16 122/80 H 96 Room Air 04/11/22 08:50 04/11/22 08:50 04/11/22 08:50 04/11/22 08:50 04/11/22 08:50 04/11/22 14:10 Oxygen Delivery Method Room Air Weight: 122 lb 12.76 oz Body Mass Index (BMI) 17.6 Intake & Output: Intake and Output for Last 24 Hours 04/09/22 04/10/22 04/11/22 23:59 23:59 23:59 Intake Total 400 / 400 1550 / 1550 Output Total 300 / 400 500 / 500 Balance 100 / 0 1050 / 1050 Lab / Micro Data Result Diagrams: 04/11/22 05:40 04/11/22 05:40 Labs: Laboratory Results - last 24 hr 04/10/22 15:30: Troponin I High Sens 231 H* 04/10/22 19:25: Troponin I High Sens 186 H* 04/11/22 05:40: WBC 6.1, RBC 3.69 L, Hgb 12.0 L, Hct 35.5 L, MCV 96.2 H, MCH 32.5 H, MCHC 33.8, RDW Std Deviation 42.9, RDW Coeff of Amanda 12.4, Plt Count 270, MPV 9.7, Immature Gran % (Auto) 0.200, Neut % (Auto) 61.9, Lymph % (Auto) 24.5, [place] % (Auto) 6.9, Eos % (Auto) 5.4 H, Baso % (Auto) 1.1 H, Absolute Neuts (auto) 3.8, Absolute Lymphs (auto) 1.50, Nucleated RBC % 0 04/11/22 05:40: Sodium 138, Potassium 3.5, Chloride 106, Carbon Dioxide 28.0, Anion Gap 4 L, BUN 11, Creatinine 0.42 L, Estim Creat Clear Calc 46.42, Est GFR (MDRD) Af Amer 248, Est GFR (MDRD) Non-Af 205, BUN/Creatinine Ratio 25.9 H, Glucose 94, Calcium 8.9, Magnesium 2.1 Cardiology Labs/Tests 04/11/22 05:40: WBC 6.1, RBC 3.69 L, Hgb 12.0 L, Hct 35.5 L, MCV 96.2 H, MCH 32.5 H, MCHC 33.8, Plt Count 270, MPV 9.7, Immature Gran % (Auto) 0.200, Neut % (Auto) 61.9, Lymph % (Auto) 24.5, [place] % (Auto) 6.9, Eos % (Auto) 5.4 H, Baso % (Auto) 1.1 H, Absolute Neuts (auto) 3.8, Nucleated RBC % 0 04/11/22 05:40: Sodium 138, Potassium 3.5, Chloride 106, Carbon Dioxide 28.0, Anion Gap 4 L, BUN 11, Creatinine 0.42 L, Est GFR (MDRD) Af Amer 248, Est GFR (MDRD) Non-Af 205, BUN/Creatinine Ratio 25.9 H, Glucose 94, Calcium 8.9, Magnesium 2.1 Rhythm: EKG: ECHO: Stress Test: Cardiac Cath: PCI: CT Surgery: Holter monitor: EPS: PPM: CXR: Chest CT Scan: Radiography Diagnostic Testing: Radiology Impression Echocardiogram 04/10/22 13:08 Interpretation Summary The estimated ejection fraction is 55-60 %. Normal LV systolc function No significant difference from previous echo Jun 2014 Ordering Physician: Ana Morfin Referring Physician: Gary Nelson MD Performed By: Bhavani Guzman RDCS Physical Exam Cardio Cardio Narrative: Review of cardiac telemetry underlying normal sinus Cardiovascular exam S1-S2 is regular Chest examination clear to auscultation bilateral No lower extremity edema noted. Delete that Cardiac care plan; 1. Patient has been stable clinically Noted his cardiac biomarkers trending down. He had extensive coronary calcification with a PCI and stent of LAD and RCA. At [facility] I discussed the cardiac care plan with his primary a r specialist he is not a candidate to perform cardiac cath, local here due to the complexity of his coronary anatomy and heavily calcified coronary arteries on his previous cardiac cath and PCI at [facility] Patient is stable clinically at this point and he does not have any active chest pain, troponin trended from 233-186 Further his cardiac evaluation by echocardiogram showed LV function is preserved, with no significant valvular abnormality. 2. Patient has a conduction abnormality with normal sinus and first degree AV block and PACs/not in any AV blocking medication 3. Patient is a high risk of fall and currently is on dual antiplatelet with aspirin and Plavix. As he has subdural hematoma not a candidate to start heparin at this point. We will continue to monitor and follow-up clinically.
[2022-04-11] MEDS: Mirtazapine 15 MG Tablet PO (21:08)
[2022-04-11] MEDS: Atorvastatin Calcium 40 MG Tablet PO (21:08)
[2022-04-11] MEDS: Latanoprost 0.005% 1 Bottle 1 DRP LEFT EYE (21:08)
[2022-04-12] VITALS (9 sets, daily range): BP systolic 108–137; BP diastolic 59–69; PULSE 65–71; RESP 16; TEMP 35.8–36.5; O2SAT 95–97
[2022-04-12 06:22] LABS: Absolute Lymphocyte Count 1.33 X10^3/uL (0.83-4.51); Absolute Neutrophil Count 3.7 X10^3/uL (2.0-7.7); Basophil# 0.07 X10^3/uL; Basophil% 1.2 % (0-1); Eosinophil# 0.28 X10^3/uL; Eosinophils% 4.8 % (0-5); Hematocrit 35.4 % (40-54); Hemoglobin 12.6 g/dL (13.0-16.5); Lymphocyte # 1.33 X10^3/ul (0.83-4.51); Mean Corp Hgb Conc 35.6 g/dL (32-36); Mean Corpuscular Hgb 33.7 pg (27.0-32.0); Mean Corpuscular Volume 94.7 fL (80-94); Mean Platelet Vol. 9.4 fl (6.2-12.0); Monocyte# 0.42 X10^3/uL; Monocyte% 7.3 % (0-10); NRBC Flagged by Analyzer 0 % (0-5); Neutrophil # 3.67 X10^3/uL (2.7-7.7); Neutrophil % 63.5 % (47-70); Platelet Count 265 K/mm3 (150-450); RBC Distribution Width CV 12.7 % (11.6-14.6); RBC Distribution Width SD 43.6 fl (35.1-43.9); Red Blood Count 3.74 M/mm3 (4.6-6.2); White Blood Count 5.8 K/mm3 (4.4-11.0)
[2022-04-12 06:51] LABS: Anion Gap 4 (5-15); BUN 11 mg/dL (7-18); BUN/Creat Ratio 21.8 RATIO (10-20); Chloride 105 mmol/L (98-107); EST Glomerular Filtration Rate 168 mL/min (>60); Est Glom Filt Rate - Afr Amer 203 mL/min (>60); Estimated Creatinine Clearance 46.42 ml/min; Glucose 95 mg/dL (74-106); Potassium 4.1 mmol/L (3.5-5.1); Sodium Level 138 mmol/L (136-145)
[2022-04-12] MEDS: Senna/Docusate Sodium 1 Tablet 2 TABLET PO (09:12)
[2022-04-12] MEDS: Clopidogrel Bisulfate 75 MG Tablet PO (09:12)
[2022-04-12] MEDS: Ascorbic Acid 500 MG Tablet PO (09:12)
[2022-04-12] MEDS: Aspirin E.C. 81 MG Tablet PO (09:12)
[2022-04-12] MEDS: Omega-3 Acid Ethyl Esters 1 GM Capsule PO (09:12)
[2022-04-12] MEDS: RILUZOLE 50 MG TABLET PO ×2 (09:12→21:32)
[2022-04-12] MEDS: Losartan Potassium 25 MG Tablet PO (09:12)
[2022-04-12] MEDS: Cholecalciferol (VIT D3) 25 MCG TABLET (1,000 UNITS) PO (09:12)
[2022-04-12] MEDS: Timolol 0.5% 5ML OPTH.BTL 1 DRP LEFT EYE (09:13)
[2022-04-12] MEDS: Fluticasone 0.05% 1 SPRAY NASAL.SRY 2 SPRAY NASAL (09:13)
[2022-04-12] MEDS: Ensure Plus High Protein 120 ML LIQUID PO ×2 (09:16→13:34)
--- NOTE | 2022-04-12 12:07 | PN.HOSP_ITS ---
Subjective Subjective Patient seen and examined. He was lying in bed comfortably and had no active complaints. Creatinine for night and review of symptoms otherwise negative. He has remained dynamically stable. Objective Data Objective Data Vital Signs: Vital Signs Temp Pulse Resp BP Pulse Ox O2 Del Method 97.0 F L 71 16 137/69 H 97 Room Air 04/12/22 09:04 04/12/22 09:04 04/12/22 09:04 04/12/22 09:04 04/12/22 09:04 04/12/22 09:04 Oxygen Delivery Method Room Air Weight: 122 lb 12.76 oz Body Mass Index (BMI) 17.6 Intake & Output: Intake and Output for Last 24 Hours 04/10/22 04/11/22 04/12/22 23:59 23:59 23:59 Intake Total 400 / 400 2029 Output Total 300 / 400 850 / 1000 150 / 150 Balance 100 / 0 1180 / 1030 -150 / -150 Medical Nutrition Assessment Dietitian: Malnutrition Criteria Met Start: 04/10/22 15:15 Freq: Status: Active Protocol: Document 04/10/22 15:15 AG (Rec: 04/10/22 15:15 AG [id number]) Nutrition Malnutrition Evidence of Malnutrition Exists Yes Malnutrition (severe): Chronic Evidenced By Suboptimal Energy Intake ( Severe),Weight Loss (Severe), Physical Changes (Moderate) Clinical Problem Acute Disease or Injury Related Malnutrition Etiology severe, acute malnutrition r/t inadequate energy intake Signs/Symptoms as evidenced by unintentional 17.2#/12% wt loss < 1 month; Moderate muscle wasting/fat loss evident per physical exam in orbital, temporal, clavicle, acromion, and temporal areas; BMI 17.6; estimated PO intake meeting < 50% of estimated energy needs Status Active Problem Recommendation Dietitian Recommendations/Changes Regular diet given severe malnutrition; will add soft and bite sized modification per RU HOSE CEMENTER recommendation. HOSE CEMENTER consulted to follow during acute stay. Continue ensure plus high protein w/ medpass; will add ensure pudding and magic cup w / meals for additional calories/protein if consumed. Lab / Micro Data Result Diagrams: 04/12/22 05:26 04/12/22 05:26 Labs: Laboratory Results - last 24 hr 04/12/22 05:26: WBC 5.8, RBC 3.74 L, Hgb 12.6 L, Hct 35.4 L, MCV 94.7 H, MCH 33.7 H, MCHC 35.6 D, RDW Std Deviation 43.6, RDW Coeff of Amanda 12.7, Plt Count 265, MPV 9.4, Immature Gran % (Auto) 0.200, Neut % (Auto) 63.5, Lymph % (Auto) 23.0, Heard % (Auto) 7.3, Eos % (Auto) 4.8, Baso % (Auto) 1.2 H, Absolute Neuts (auto) 3.7, Absolute Lymphs (auto) 1.33, Nucleated RBC % 0 04/12/22 05:26: Sodium 138, Potassium 4.1, Chloride 105, Carbon Dioxide 29.0, Anion Gap 4 L, BUN 11, Creatinine 0.50 L, Estim Creat Clear Calc 46.42, Est GFR (MDRD) Af Amer 203, Est GFR (MDRD) Non-Af 168, BUN/Creatinine Ratio 21.8 H, Glucose 95, Calcium 9.0 Physical Exam Const alert, oriented x3 and no apparent distress Constitutional Narrative: frail General Appearance: cooperative HEENT normocephalic, head/scalp atraumatic, hearing grossly normal bilaterally and moist oral mucous membranes Head and Scalp: normocephalic Mouth: oral and palatal mucosa normal Eyes PERRL, EOMs intact bilaterally and conjunctivae normal Neck no lymphadenopathy and supple Resp normal respiratory effort, no retractions, no use of accessory muscles and clear to auscultation bilaterally Cardio regular rate, regular rhythm, S1 normal heart sound, S2 normal heart sound and no murmurs GI normal to inspection, nondistended, normoactive bowel sounds, soft to palpation, non-tender and non-distended Extremity normal to inspection, full ROM and no clubbing, cyanosis or edema Neuro oriented x3, CN's II-XII intact bilaterally, moves all extremities and no focal motor deficits Sensorium / Orientation: awake and alert Motor Exam: strength 5/5 throughout Psych Psych Narrative: flat affect Assessment & Plan Assessment/Plan (1) Symptomatic bradycardia: (2) Traumatic subarachnoid hemorrhage: (3) Fall: PLAN: Plan #Symptomatic bradycardia * hasnt been really bradycardic since admission * 2D echo: EF is 55-60%, normal LV systolic function. * EKG shows mild sinus bradycardia;EKG done in the rehab unit showed bigeminal atrial rhythm and heart rate even went as low as the 30s in the rehab * cardiology on board; recommends 30 day event monitor on discharge * * #Nonstemi * initial troponin is 233 and trended downwards to 231, then 186. * on aspirin, plavix and high intensity statin * cardiology on board: has history of CAD with stents. * per cardiology, to discuss with patient's if they want him to have cardiac cath, will need to be transferred for the cath as he had extensive coronary calcification with PCI done at [facility]. * 2D echo as above * #Traumatic subarachnoid hemorrhage * fell whilst going up the stairs of his house on 03/31/2022> he sustained a focal subarachnoid hemorrhage and parenchymal hemorrhage of the left frontal and temporal lobes of hte brain. * aspirin and plavix held. * PT/OT on board. Fall precautions * #History of CAD: * aspirin and plavix held initially due to subarachnoid hemorrhage. these have now been resumed. * on intensity statin; will switch to high intensity statin #ALS: on riluzole #Hypertension; on losartan DVT prophylaxis: SCDs Code status: will maintain patient as full code Disposition: * Per case management note, patient will have a bed in the rehab unit on Wednesday, that is if he is not sent to [place] for cardiac cath before then. Charges/Coding Visit Charges Inpatient E&M: 92900 Subs Hosp L2
[2022-04-12] MEDS: 0.9% Saline Lock 10 ML Syringe IV (13:40)
--- NOTE | 2022-04-12 14:29 | PN.CARD_ITS ---
Subjective Subjective Seen and evaluated today at bedside along with the nursing staff Comfortable he actually woke on the telemetry floor with associate director of nursing, has no symptoms of chest pain. Objective Data Vital Signs: Vital Signs Temp Pulse Resp BP Pulse Ox O2 Del Method 96.5 F L 70 16 121/59 H 97 Room Air 04/12/22 13:43 04/12/22 13:43 04/12/22 13:43 04/12/22 13:43 04/12/22 13:43 04/12/22 13:43 Oxygen Delivery Method Room Air Weight: 122 lb 12.76 oz Body Mass Index (BMI) 17.6 Intake & Output: Intake and Output for Last 24 Hours 04/10/22 04/11/22 04/12/22 23:59 23:59 23:59 Intake Total 400 / 400 2030 / 2030 480 / 480 Output Total 300 / 400 850 / 1000 350 / 350 Balance 100 / 0 1180 / 1030 130 / 130 Lab / Micro Data Result Diagrams: 04/12/22 05:26 04/12/22 05:26 Labs: Laboratory Results - last 24 hr 04/12/22 05:26: WBC 5.8, RBC 3.74 L, Hgb 12.6 L, Hct 35.4 L, MCV 94.7 H, MCH 33.7 H, MCHC 35.6 D, RDW Std Deviation 43.6, RDW Coeff of Amanda 12.7, Plt Count 265, MPV 9.4, Immature Gran % (Auto) 0.200, Neut % (Auto) 63.5, Lymph % (Auto) 23.0, [place] % (Auto) 7.3, Eos % (Auto) 4.8, Baso % (Auto) 1.2 H, Absolute Neuts (auto) 3.7, Absolute Lymphs (auto) 1.33, Nucleated RBC % 0 04/12/22 05:26: Sodium 138, Potassium 4.1, Chloride 105, Carbon Dioxide 29.0, Anion Gap 4 L, BUN 11, Creatinine 0.50 L, Estim Creat Clear Calc 46.42, Est GFR (MDRD) Af Amer 203, Est GFR (MDRD) Non-Af 168, BUN/Creatinine Ratio 21.8 H, Glucose 95, Calcium 9.0 Cardiology Labs/Tests 04/12/22 05:26: WBC 5.8, RBC 3.74 L, Hgb 12.6 L, Hct 35.4 L, MCV 94.7 H, MCH 33.7 H, MCHC 35.6 D, Plt Count 265, MPV 9.4, Immature Gran % (Auto) 0.200, Neut % (Auto) 63.5, Lymph % (Auto) 23.0, [place] % (Auto) 7.3, Eos % (Auto) 4.8, Baso % (Auto) 1.2 H, Absolute Neuts (auto) 3.7, Nucleated RBC % 0 04/12/22 05:26: Sodium 138, Potassium 4.1, Chloride 105, Carbon Dioxide 29.0, A nion Gap 4 L, BUN 11, Creatinine 0.50 L, Est GFR (MDRD) Af Amer 203, Est GFR (MDRD) Non-Af 168, BUN/Creatinine Ratio 21.8 H, Glucose 95, Calcium 9.0 Rhythm: EKG: ECHO: Stress Test: Cardiac Cath: PCI: CT Surgery: Holter monitor: EPS: PPM: CXR: Chest CT Scan: Physical Exam Cardio Cardio Narrative: Patient alert and orientated Review of the cardiac telemetry showed normal sinus with PACs sinus bradycardia Cardiovascular semination; S1-S2 is regular, no systolic or diastolic murmur Chest examination; clear to auscultation bilateral Assessment & Plan Assessment/Plan (1) ALS (amyotrophic lateral sclerosis): (2) Essential hypertension: (3) Atherosclerotic heart disease of [place] coronary artery without angina pectoris: QUALIFIERS: [place] vs. transplanted heart: [place] heart Qualified Code(s): I25.10 - Atherosclerotic heart disease of [place] coronary artery wi thout angina pectoris (4) Presence of stent in coronary artery: (5) Non-ST elevation (NSTEMI) myocardial infarction: PLAN: 81-year-old patient Who was admitted with with, showed a sinus bradycardia and frequent PACs Patient is not in any rate controlling AV blocking medication Also patient has elevated high sensitive troponins, down. Patient does not have any active chest pain and has a very complex coronary artery disease with prior PCI and stent of LAD and RCA which is heavily ca lcified and it was done in a tertiary facility at [facility] Patient had history of ALS/amyotrophic lateral sclerosis Echocardiographic evaluation, in this admission revealed LV function is preserved. And patient has been stable clinically. Cardiac care plan; 1. Patient will continue on dual antiplatelet therapy with aspirin and Plavix in addition to atorvastatin and losartan 2. I do not see, indication for any invasive evaluation at this point and patient can be discharged with event monitor for 30 days. Review of the cardiac telemetry showed normal sinus sinus bradycardia and PACs no evidence of high-grade AV block or significant ventricular dysrhythmia. 3. From cardiac standpoint patient can be discharged tomorrow and patient to follow-up with the primary hvac mechanical engineer Dr. Braun.
[2022-04-12] MEDS: Atorvastatin Calcium 40 MG Tablet PO (21:31)
[2022-04-12] MEDS: Latanoprost 0.005% 1 Bottle 1 DRP LEFT EYE (21:32)
[2022-04-12] MEDS: Mirtazapine 15 MG Tablet PO (21:32)
[2022-04-13 03:01] VITALS: PULSE 62
[2022-04-13 04:25] VITALS: BP 124/60; PULSE 75; RESP 16; TEMP 36.1; O2SAT 98
[2022-04-13 06:31] LABS: Absolute Lymphocyte Count 1.68 X10^3/uL (0.83-4.51); Absolute Neutrophil Count 3.1 X10^3/uL (2.0-7.7); Basophil# 0.08 X10^3/uL; Basophil% 1.4 % (0-1); Eosinophil# 0.27 X10^3/uL; Eosinophils% 4.9 % (0-5); Hematocrit 36.5 % (40-54); Hemoglobin 12.5 g/dL (13.0-16.5); Lymphocyte # 1.68 X10^3/ul (0.83-4.51); Lymphocyte % 30.4 % (19-41); Mean Corp Hgb Conc 34.2 g/dL (32-36); Mean Corpuscular Hgb 32.4 pg (27.0-32.0); Mean Corpuscular Volume 94.6 fL (80-94); Mean Platelet Vol. 9.6 fl (6.2-12.0); Monocyte# 0.42 X10^3/uL; Monocyte% 7.6 % (0-10); NRBC Flagged by Analyzer 0 % (0-5); Neutrophil # 3.06 X10^3/uL (2.7-7.7); Neutrophil % 55.5 % (47-70); Platelet Count 280 K/mm3 (150-450); RBC Distribution Width CV 12.7 % (11.6-14.6); RBC Distribution Width SD 43.7 fl (35.1-43.9); Red Blood Count 3.86 M/mm3 (4.6-6.2); White Blood Count 5.5 K/mm3 (4.4-11.0)
[2022-04-13 06:45] VITALS: PULSE 63
[2022-04-13 06:46] LABS: Anion Gap 8 (5-15); BUN 11 mg/dL (7-18); BUN/Creat Ratio 26.3 RATIO (10-20); Calcium,Total 9.2 mg/dL (8.5-10.1); Chloride 107 mmol/L (98-107); Creatinine, Serum 0.42 mg/dL (0.70-1.30); EST Glomerular Filtration Rate 208 mL/min (>60); Est Glom Filt Rate - Afr Amer 252 mL/min (>60); Estimated Creatinine Clearance 46.42 ml/min; Glucose 93 mg/dL (74-106); Potassium 3.7 mmol/L (3.5-5.1); Sodium Level 141 mmol/L (136-145)
[2022-04-13] MEDS: Aspirin E.C. 81 MG Tablet PO (07:36)
--- NOTE | 2022-04-13 08:40 | PN.CARD_ITS ---
Subjective Subjective The patient is awake and alert. He denies any ongoing chest discomfort or difficulty breathing at this time. There is been no obvious palpitations, near- syncope, or syncope. Objective Data Vital Signs: Vital Signs Temp Pulse Resp BP Pulse Ox O2 Del Method 96.9 F L 63 16 124/60 H 98 Room Air 04/13/22 04:25 04/13/22 06:45 04/13/22 04:25 04/13/22 04:25 04/13/22 04:25 04/13/22 04:25 Oxygen Delivery Method Room Air Weight: 122 lb 12.76 oz Body Mass Index (BMI) 17.6 Intake & Output: Intake and Output for Last 24 Hours 04/11/22 04/12/22 04/13/22 23:59 23:59 23:59 Intake Total 2029 / 2029 860 / 860 Output Total 850 / 1000 530 / 530 Balance 1180 / 1030 330 / 330 Lab / Micro Data Result Diagrams: 04/13/22 05:25 04/13/22 05:23 Labs: Laboratory Results - last 24 hr 04/13/22 05:23: Sodium 141, Potassium 3.7, Chloride 107, Carbon Dioxide 26.0, Anion Gap 8, BUN 11, Creatinine 0.42 L, Estim Creat Clear Calc 46.42, Est GFR (MDRD) Af Amer 252, Est GFR (MDRD) Non-Af 208, BUN/Creatinine Ratio 26.3 H, Glucose 93, Calcium 9.2 04/13/22 05:25: WBC 5.5, RBC 3.86 L, Hgb 12.5 L, Hct 36.5 L, MCV 94.6 H, MCH 32.4 H, MCHC 34.2, RDW Std Deviation 43.7, RDW Coeff of Amanda 12.7, Plt Count 280, MPV 9.6, Immature Gran % (Auto) 0.200, Neut % (Auto) 55.5, Lymph % (Auto) 30.4, [place] % (Auto) 7.6, Eos % (Auto) 4.9, Baso % (Auto) 1.4 H, Absolute Neuts (auto) 3.1, Absolute Lymphs (auto) 1.68, Nucleated RBC % 0 Cardiology Labs/Tests 04/13/22 05:23: Sodium 141, Potassium 3.7, Chloride 107, Carbon Dioxide 26.0, Anion Gap 8, BUN 11, Creatinine 0.42 L, Est GFR (MDRD) Af Amer 252, Est GFR (MDRD) Non-Af 208, BUN/Creatinine Ratio 26.3 H, Glucose 93, Calcium 9.2 04/13/22 05:25: WBC 5.5, RBC 3.86 L, Hgb 12.5 L, Hct 36.5 L, MCV 94.6 H, MCH 32.4 H, MCHC 34.2, Plt Count 280, MPV 9.6, Immature Gran % (Auto) 0.200, Neut % (Auto) 55.5, Lymph % (Auto) 30.4, [place] % (Auto) 7.6, Eos % (Auto) 4.9, Baso % (Auto) 1.4 H, Absolute Neuts (auto) 3.1, Nucleated RBC % 0 Rhythm: Sinus rhythm; PACs Physical Exam Const alert, oriented x3 and no apparent distress Orientation / Consciousness: awake HEENT normocephalic, head/scalp atraumatic and hearing grossly normal bilaterally Eyes PERRL, EOMs intact bilaterally, conjunctivae normal and no scleral icterus Neck full ROM, supple and no JVD Resp normal respiratory effort and clear to auscultation bilaterally Cardio regular rate, regular rhythm, S1 normal heart sound and S2 normal heart sound Rhythm: abnormal rhythm ectopic beats GI normal to inspection, nondistended, normoactive bowel sounds Extremity normal to inspection and full ROM Skin no rashes or lesions noted Psych mental status grossly normal Assessment & Plan Assessment/Plan (1) Symptomatic bradycardia: PLAN: The patient undergoing sinus rhythm/sinus bradycardia. At the present time he appears to be symptomatically and hemodynamically stable. He is not on any rate limiting medications. He is undergone noninvasive valuation as noted. He was thought to be considered for an outpatient ambulatory event monitor to monitor for any concerning symptoms and correlation with changes in his rate and/or rhythm. (2) Dysrhythmia, cardiac: PLAN: The patient does have a history of PACs and PVCs. This is not new for him. He appears without acute symptoms at this time. He is not on any medical therapy at this time. (3) Non-ST elevation (NSTEMI) myocardial infarction: PLAN: The patient does have an element of elevated cardiac enzymes/troponin I levels. Based upon his cardiovascular consultation this is felt to be a type II event. He was evaluated by Dr. Ortiz of interventional cardiology who did not feel he required repeat invasive evaluation or care locally or back at [facility] where he has had his procedures performed in the past. Thus he will continue risk factor modification and medical management. (4) Coronary artery disease: PLAN: The patient has a history of CAD. He is undergone extensive noninvasive and invasive valuation the past as noted. At the moment he should continue risk factor evaluation care as deemed appropriate. (5) Presence of stent in coronary artery: PLAN: The patient has a history of PCI. His PCI procedures have been performed at [facility] based upon his underlying CAD status/calcification status. Again at the moment based upon input from interventional cardiology it does not appear he requires repeat invasive evaluation at this time. (6) Hyperlipidemia: PLAN: The patient has history of hyperlipidemia. Based upon his last outpatient cardiovascular visit note he states based upon his ALS he no longer is interested in his lipid labs and/or treating his lipid labs/hyperlipidemia with statin therapy due to the potential side effects with respect to his musculoskeletal system. (7) Hypertension: PLAN: The patient will continue antihypertensive therapy as deemed appropriate. Addt'l Comments Overall, at the present time, the patient wants to continue conservative medical management. There are no immediate plans for additional cardiovascular diagnostic studies as an inpatient. He can be considered as an outpatient for a 30-day ambulatory event monitor and attempt to correlate any cardiac rhythm related symptoms, etc., to assist with ongoing evaluation and care. The patient states he would like to be released home for continued outpatient follow-up. This note was generated using a voice recognition system and there may be incorrect words, spelling or punctuation that were not noted when reviewing the office note prior to saving. Procedure Criteria Type of Procedure Procedure Type: Elective Elective Risks - COVID COVID Risk Discussion: The surgeon/proceduralist and patient have discussed in detail the risk of exposure to and/or potential harm posed by the COVID-19 virus with having a surgery/procedure at this time versus the risk of delaying the surg justino/procedure. It is not possible to know either the risk of delaying the surgery or procedure or chance of getting an infection with perfect accuracy, but a joint decision was made between the patient and the surgeon/proceduralist to proceed at this time with the scheduled surgery/procedure as indicated on the consent form.
[2022-04-13 10:17] VITALS: BP 128/63; PULSE 70; RESP 16; TEMP 36.5; O2SAT 97
[2022-04-13] MEDS: Ensure Plus High Protein 120 ML LIQUID PO ×2 (10:20→13:37)
[2022-04-13] MEDS: RILUZOLE 50 MG TABLET PO (10:21)
[2022-04-13] MEDS: Losartan Potassium 25 MG Tablet PO (10:22)
[2022-04-13] MEDS: Ascorbic Acid 500 MG Tablet PO (10:22)
[2022-04-13] MEDS: Omega-3 Acid Ethyl Esters 1 GM Capsule PO (10:22)
[2022-04-13] MEDS: Cholecalciferol (VIT D3) 25 MCG TABLET (1,000 UNITS) PO (10:22)
[2022-04-13] MEDS: Clopidogrel Bisulfate 75 MG Tablet PO (10:22)
[2022-04-13] MEDS: Timolol 0.5% 5ML OPTH.BTL 1 DRP LEFT EYE (10:22)
--- NOTE | 2022-04-13 11:05 | CASEMGMT ---
Physician said patient is ready for discharge today. PARESH let physician know that the plan is either back [facility]. PARESH called patient's daughter Saloni. PARESH told Saloni that patient is ready for discharge. PARESH suggested the less moves the better and it may be best for patient to go right to [facility]. PARESH has communicated with Eulalia at [facility] and they can take patient anytime. Saloni had some questions about patient's medical care. PARESH told Saloni PARESH will see if patient's RN can call her and update her. Saloni is going to call her mom (patient's ) and go over all of this with her. Saloni also wants to make sure someone is talking with patient about all of this as well. PARESH will call Saloni back after bit. Plan: undetermined. Toña ROJAS
--- NOTE | 2022-04-13 12:50 | CASEMGMT ---
SW spoke with patient, his , and caregiver. SW spoke with patient letting him know that it is being recommended that he continue with therapy. SW let patient know it was arranged prior that he go to [facility] for his continued rehab. Patient verbalized understanding. Patient's asked if people go home from [facility]. SW explained that people often go home after rehab, but it depends on the patient's progress and support at home. Patient's asked about private duty. SW has a list and will bring her a copy. SW let them know SW will get things arranged once the physician puts in discharge orders. Toña Oconnor COMMUNITY SPORTS COORDINATOR BOB
--- NOTE | 2022-04-13 12:54 | CASEMGMT ---
SW gave patient's a copy of the private duty list. Toña Oconnor COSMETIC ASSEMBLER BOB
--- NOTE | 2022-04-13 13:42 | TREXTCAR_ITS ---
Diet Diet Order/Speech Therapy: 04/10/22 15:15 Diet: Regular - General Food consistency:: Soft & Bite Sized Liquid Consistency:: Regular/Thin Is pt able to select menu?: Yes Diet Comments: ensure pudding at breakfast;magic cup w/ lunch&dinner. Pt complete feed. Routine Orders/Code Status Suppository Type: Dulcolax 10mg Suppository Frequency: Daily PRN Keep PO Greater than or Equal to (%): 94 Routine Lab Work: CBC (within 3 days) and - (CMP within 3 days) Code Status: Full Code Therapies Weight Bearing: Weight bearing as tolerated Physical Therapy: Eval and Treat Occupational Therapy: Eval and Treat Problem/Diagnosis (1) Symptomatic bradycardia: Status: Acute Code(s): R00.1 - Bradycardia, unspecified (2) Dysrhythmia, cardiac: Status: Acute Code(s): I49.9 - Cardiac arrhythmia, unspecified (3) Non-ST elevation (NSTEMI) myocardial infarction: Status: Acute Code(s): I21.4 - Non-ST elevation (NSTEMI) myocardial infarction (4) Coronary artery disease: Status: Acute Code(s): I25.10 - Atherosclerotic heart disease of [place] coronary artery without angina pectoris (5) Presence of stent in coronary artery: Status: Chronic Code(s): Z95.5 - Presence of coronary angioplasty implant and graft Comment: PTCA/ANDREW to distal LAD 06/26/08; PTCA/ANDREW to Rt posterolateral segment 08/08/09; PTCA/ANDREW to mid LAD 09/02 (6) Hyperlipidemia: Status: Acute Code(s): E78.5 - Hyperlipidemia, unspecified (7) Hypertension: Status: Chronic Code(s): I10 - Essential (primary) hypertension Allergies/Procedures Done in Hospital Allergies nitroglycerin Adverse Reaction (Severe, Verified 03/24/22 22:11) Low BP, near syncope Procedures: 2-D Echocardiogram Type of Care/Length of Stay Estimated LOS: Convalescent Care Less Than 30 days Type of Care Needed: Skilled Rehab Potential: Good Prognosis: Good Additional Orders/Day of Discharge Day of Discharge: 04/13/22 Dietary and Speech Recommendations Dietitian Recommendations/Changes: Regular diet given severe malnutrition; will add soft and bite sized modification per RU APARTMENT MAINTENANCE TECHNICIAN recommendation. APARTMENT MAINTENANCE TECHNICIAN consulted to follow during acute stay. Continue ensure plus high protein w/ medpass; will add ensure pudding and magic cup w/ meals for additional calories/protein if consumed. Discharge Plan Admission Admit Date/Time: 04/10/22 14:44 Primary Reason for Your Visit: Bradycardia Attending Provider: Ana Hyman Primary Care Provider: Marcos Nelson Consulting Providers: Gia Ortiz ; Ana Morfin Discharge Orders/Prescriptions Prescriptions: New atorvastatin 40 mg Tablet 40 mg PO QHS Qty: 0 0RF Continued aspirin 81 mg tablet,delayed release (DR/EC) 81 mg PO QDAY omega-3 fatty acids 1,000 mg capsule 1,000 mg PO QDAY timolol maleate 0.5 % drops 1 drp LEFT EYE DAILY 75 Days Qty: 5 latanoprost 0.005 % drops 1 drp LEFT EYE QHS ascorbic acid (vitamin C) 500 mg tablet 500 mg PO DAILY cholecalciferol (vitamin D3) [D-Vi-Sahra] 10 mcg/mL (400 unit/mL) Drops 10 mcg PO DAILY losartan 25 mg tablet 25 mg PO DAILY riluzole 50 mg tablet 50 mg PO .COMPLEX Rx Instructions: 50 mg PO twice daily must be taken on empty stomach; no food 1 hr after or 2- 3 hrs before dose Use Pt's Own Med acetaminophen 500 mg Tablet 1,000 mg PO Q6H PRN PRN (Reason: Pain Score 1-5) Qty: 0 0RF magnesium hydroxide 400 mg/5 mL Suspension 30 ml PO .PRN X 1 PRN (Reason: Constipation) Qty: 0 0RF bisacodyl 10 mg Suppository 10 mg MA .PRN X 1 PRN (Reason: Constipation) Qty: 0 0RF fluticasone propionate 50 mcg/actuation [place],Suspension 2 spray NASAL DAILY Qty: 0 0RF Ensure Plus High Protein 0.08 gram-1.5 kcal/mL Liquid 120 ml PO 4X/DAY Qty: 0 0RF oxycodone 5 mg Tablet 5 mg PO Q4H PRN PRN (Reason: Pain Score 6-10) Qty: 0 0RF sennosides-docusate sodium [Stool Softener-Stimulant Laxat] 8.6-50 mg tablet 2 tab PO BID mirtazapine 15 mg tablet 15 mg PO QHS clopidogrel 75 mg tablet 75 mg PO QDAY Qty: 90 3RF Discontinued atorvastatin 20 mg tablet 20 mg PO QHS Other Ambulatory Orders: 30 Day Event Recorder Preventi (Routine) Timeframe: 1 Day Facility: [facility] - Location: Cardiovascular Services Ordered By: Dr. Ana Hyman Referrals / Follow Up: Marcos Nelson MD [Primary Care Provider] - In 1 Week Toney Braun MD [Med Staff - Active Staff] - Within 2 Weeks Disposition Disposition (needs filled in before D/C Order can be placed): Retirement Facility
--- NOTE | 2022-04-13 13:54 | PCM.DC.SUM ---
Providers Date of Admission: 04/10/22 Date of Discharge: 04/13/22 Primary Care Physician: Dr. Marcos Nelson MD Consultations 04/10/22 13:11 Consult: Cardiology Routine Consulting Provider: Gia Ortiz Reason for Consult: bradycardia EMERGENT Consult: No MD Notified: Yes Date Notified: 04/10/22 Time Notified: 13:11 Method of Notification: Text Reason For Visit: SYMPTOMATIC BRADYCARDIA Diagnosis Discharge Diagnosis (1) Symptomatic bradycardia: Status: Acute Code(s): R00.1 - Bradycardia, unspecified (2) Dysrhythmia, cardiac: Status: Acute Code(s): I49.9 - Cardiac arrhythmia, unspecified (3) Non-ST elevation (NSTEMI) myocardial infarction: Status: Acute Code(s): I21.4 - Non-ST elevation (NSTEMI) myocardial infarction (4) Coronary artery disease: Status: Acute Code(s): I25.10 - Atherosclerotic heart disease of [place] coronary artery without angina pectoris (5) Presence of stent in coronary artery: Status: Chronic Code(s): Z95.5 - Presence of coronary angioplasty implant and graft (6) Hyperlipidemia: Status: Acute Code(s): E78.5 - Hyperlipidemia, unspecified (7) Hypertension: Status: Chronic Code(s): I10 - Essential (primary) hypertension (8) Severe protein-calorie malnutrition: Status: Acute Code(s): E43 - Unspecified severe protein-calorie malnutrition Medications at Discharge Home Medications aspirin 81 mg tablet,delayed release 81 mg PO QDAY [facility] 07/22/17 omega-3 fatty acids 1,000 mg capsule 1,000 mg PO QDAY Check with primary doctor 07/22/17 latanoprost 0.005 % eye drops 1 drp LEFT EYE QHS Check with primary doctor 04/15/20 timolol maleate 0.5 % eye drops 1 drp LEFT EYE DAILY Check with primary doctor 75 days #5 mL 04/15/20 ascorbic acid (vitamin C) 500 mg tablet 500 mg PO DAILY Check with primary doctor 10/09/21 clopidogrel 75 mg tablet 75 mg PO QDAY #90 tabs 01/19/22 cholecalciferol (vitamin D3) 10 mcg/mL (400 unit/mL) oral drops (D-Vi-Sahra) 10 mcg PO DAILY Check with primary doctor 03/31/22 losartan 25 mg tablet 25 mg PO DAILY BP 03/31/22 riluzole 50 mg tablet 50 mg PO .COMPLEX ALS 03/31/22 acetaminophen 500 mg tablet 1,000 mg PO Q6H PRN PRN Pain Score 1-5 #0 tabs 04/10/22 bisacodyl 10 mg rectal suppository 10 mg RI .PRN X 1 PRN Constipation #0 ea 04/10/22 fluticasone propionate 50 mcg/actuation nasal spray,suspension 2 spray NASAL DAILY #0 grams 04/10/22 food supplemt, lactose-reduced 0.08 gram-1.5 kcal/mL oral liquid (Ensure Plus High Protein) 120 ml PO 4X/DAY #0 mL 04/10/22 magnesium hydroxide 400 mg/5 mL oral suspension 30 ml PO .PRN X 1 PRN Constipation #0 mL 04/10/22 mirtazapine 15 mg tablet 15 mg PO QHS restless legs 04/10/22 oxycodone 5 mg tablet 5 mg PO Q4H PRN PRN Pain Score 6-10 #0 tabs 04/10/22 sennosides 8.6 mg-docusate sodium 50 mg tablet (Stool Softener-Stimulant Laxative) 2 tab PO BID stool softner 04/10/22 atorvastatin 40 mg tablet 40 mg PO QHS #0 tabs 04/13/22 Hospital Course Operations None Procedures 2-D Echocardiogram Summary of Care Provided Minutes Spent on Discharge: 35 Hospital Course: 81-year-old male with multiple comorbidities who was admitted as a direct admit from the rehab unit on account of bradycardia. Patient was noted to be bradycardic with heart rate going to the 30s. 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 Was working with physical therapy that day, he was found to be bradycardic with heart rate in the 30s. He was also dizzy and lightheaded. Orthostatic vitals were negative. EKG showed no acute ST-T changes. Patient was admitted to the progressive care unit and monitored. He remained in sinus rhythms with frequent PACs. He did not have any issues with angina. Cardiology saw patient during this admission. Recommended 30-day event monitor. Patient was followed up by school social worker and discharged to the [facility]. On the day of discharge, patient was seen and examined. Denied any new complaints. Discussed with cardiology, patient will be discharged with a 30-day event monitor. He will follow-up with cardiology in 2 to 4 weeks. Physical Exam Narrative Physical exam: General: Alert, Oriented x3, Cooperative, appears frail HEENT: Atraumatic Oral: Moist Mucosa Neck: Supple Lungs: Diminished to auscultation Cardiovascular: HS I+II, regular, no murmurs Abdomen: Bowel Sounds Present, Soft, Non Tender Extremities: No edema Skin: No rashes, No breakdown Neurological: Grossly intact Psych/Mental Status: Appropriate Medical Records Data Medical Nutrition Assessment Dietitian: Malnutrition Criteria Met Start: 04/10/22 15:15 Freq: Status: Active Protocol: Document 04/10/22 15:15 AG (Rec: 04/10/22 15:15 AG [id number]) Nutrition Malnutrition Evidence of Malnutrition Exists Yes Malnutrition (severe): Chronic Evidenced By Suboptimal Energy Intake ( Severe),Weight Loss (Severe), Physical Changes (Moderate) Clinical Problem Acute Disease or Injury Related Malnutrition Etiology severe, acute malnutrition r/t inadequate energy intake Signs/Symptoms as evidenced by unintentional 17.2#/12% wt loss < 1 month; Moderate muscle wasting/fat loss evident per physical exam in orbital, temporal, clavicle, acromion, and temporal areas; BMI 17.6; estimated PO intake meeting < 50% of estimated energy needs Status Active Problem Recommendation Dietitian Recommendations/Changes Regular diet given severe malnutrition; will add soft and bite sized modification per RU BOOMSWING OPERATOR recommendation. BOOMSWING OPERATOR consulted to follow during acute stay. Continue ensure plus high protein w/ medpass; will add ensure pudding and magic cup w / meals for additional calories/protein if consumed. Weight / BMI Weight Weight: 55.7 kg Body Mass Index (BMI) 17.6 ABG / Lab / Microbiology Data Result Diagrams: 04/13/22 05:25 04/13/22 05:23 Laboratory: Laboratory Results - last 24 hr 04/13/22 05:23: Sodium 141, Potassium 3.7, Chloride 107, Carbon Dioxide 26.0, Anion Gap 8, BUN 11, Creatinine 0.42 L, Estim Creat Clear Calc 46.42, Est GFR (MDRD) Af Amer 252, Est GFR (MDRD) Non-Af 208, BUN/Creatinine Ratio 26.3 H, Glucose 93, Calcium 9.2 04/13/22 05:25: WBC 5.5, RBC 3.86 L, Hgb 12.5 L, Hct 36.5 L, MCV 94.6 H, MCH 32.4 H, MCHC 34.2, RDW Std Deviation 43.7, RDW Coeff of Amanda 12.7, Plt Count 280, MPV 9.6, Immature Gran % (Auto) 0.200, Neut % (Auto) 55.5, Lymph % (Auto) 30.4, Caroline % (Auto) 7.6, Eos % (Auto) 4.9, Baso % (Auto) 1.4 H, Absolute Neuts (auto) 3.1, Absolute Lymphs (auto) 1.68, Nucleated RBC % 0 Microbiology: Microbiology 04/13/22 12:57 Nasal Secretion SARS-CoV-2 Antigen (Rapid) - Final D/C Instructions Discharge Diet: Low fat / Low cholesterol and 2000 mg Sodium Diet Discharge Activity: Return to Normal Activity Meaningful Use Info Meaningful Use Diagnoses (Choose all that apply): None applicable Discharge Plan Admission Admit Date/Time: 04/10/22 14:44 Primary Reason for Your Visit: Bradycardia Attending Provider: Ana Hyman Primary Care Provider: Marcos Nelson Consulting Providers: Gia Ortiz ; Ana Morfin Discharge Orders/Prescriptions Prescriptions: New atorvastatin 40 mg Tablet 40 mg PO QHS Qty: 0 0RF Continued aspirin 81 mg tablet,delayed release (DR/EC) 81 mg PO QDAY omega-3 fatty acids 1,000 mg capsule 1,000 mg PO QDAY timolol maleate 0.5 % drops 1 drp LEFT EYE DAILY 75 Days Qty: 5 latanoprost 0.005 % drops 1 drp LEFT EYE QHS ascorbic acid (vitamin C) 500 mg tablet 500 mg PO DAILY cholecalciferol (vitamin D3) [D-Vi-Sahra] 10 mcg/mL (400 unit/mL) Drops 10 mcg PO DAILY losartan 25 mg tablet 25 mg PO DAILY riluzole 50 mg tablet 50 mg PO .COMPLEX Rx Instructions: 50 mg PO twice daily must be taken on empty stomach; no food 1 hr after or 2-3 hrs before dose Use Pt's Own Med acetaminophen 500 mg Tablet 1,000 mg PO Q6H PRN PRN (Reason: Pain Score 1-5) Qty: 0 0RF magnesium hydroxide 400 mg/5 mL Suspension 30 ml PO .PRN X 1 PRN (Reason: Constipation) Qty: 0 0RF bisacodyl 10 mg Suppository 10 mg RI .PRN X 1 PRN (Reason: Constipation) Qty: 0 0RF fluticasone propionate 50 mcg/actuation [place],Suspension 2 spray NASAL DAILY Qty: 0 0RF Ensure Plus High Protein 0.08 gram-1.5 kcal/mL Liquid 120 ml PO 4X/DAY Qty: 0 0RF oxycodone 5 mg Tablet 5 mg PO Q4H PRN PRN (Reason: Pain Score 6-10) Qty: 0 0RF sennosides-docusate sodium [Stool Softener-Stimulant Laxat] 8.6-50 mg tablet 2 tab PO BID mirtazapine 15 mg tablet 15 mg PO QHS clopidogrel 75 mg tablet 75 mg PO QDAY Qty: 90 3RF Discontinued atorvastatin 20 mg tablet 20 mg PO QHS Other Ambulatory Orders: 30 Day Event Recorder Preventi (Routine) Timeframe: 1 Day Facility: [facility] - Location: Cardiovascular Services Ordered By: Dr. Ana Hyman Referrals / Follow Up: Marcos Nelson MD [Primary Care Provider] - In 1 Week Toney Braun MD [Med Staff - Active Staff] - Within 2 Weeks Disposition Disposition (needs filled in before D/C Order can be placed): [facility]ial Facility Charges/Coding Visit Charges Inpatient E&M: 74688 Disch Hosp
--- NOTE | 2022-04-13 14:01 | PHA.DC.MR ---
Pharmacy Service has performed discharge medication reconciliation for this patient. The patient's discharge medication list was reviewed for discrepancies and discrepancies were resolved. Home Medications aspirin 81 mg tablet,delayed release 81 mg PO QDAY heart health 07/22/17 omega-3 fatty acids 1,000 mg capsule 1,000 mg PO QDAY Check with primary doctor 07/22/17 latanoprost 0.005 % eye drops 1 drp LEFT EYE QHS Check with primary doctor 04/15/20 timolol maleate 0.5 % eye drops 1 drp LEFT EYE DAILY Check with primary doctor 75 days #5 mL 04/15/20 ascorbic acid (vitamin C) 500 mg tablet 500 mg PO DAILY Check with primary doctor 10/09/21 clopidogrel 75 mg tablet 75 mg PO QDAY #90 tabs 01/19/22 cholecalciferol (vitamin D3) 10 mcg/mL (400 unit/mL) oral drops (D-Vi-Sahra) 10 mcg PO DAILY Check with primary doctor 03/31/22 losartan 25 mg tablet 25 mg PO DAILY BP 03/31/22 riluzole 50 mg tablet 50 mg PO .COMPLEX ALS 03/31/22 acetaminophen 500 mg tablet 1,000 mg PO Q6H PRN PRN Pain Score 1-5 #0 tabs 04/10/22 bisacodyl 10 mg rectal suppository 10 mg [place] .PRN X 1 PRN Constipation #0 ea 04/10/22 fluticasone propionate 50 mcg/actuation nasal spray,suspension 2 spray NASAL DAILY #0 grams 04/10/22 food supplemt, lactose-reduced 0.08 gram-1.5 kcal/mL oral liquid (Ensure Plus High Protein) 120 ml PO 4X/DAY #0 mL 04/10/22 magnesium hydroxide 400 mg/5 mL oral suspension 30 ml PO .PRN X 1 PRN Constipation #0 mL 04/10/22 mirtazapine 15 mg tablet 15 mg PO QHS restless legs 04/10/22 oxycodone 5 mg tablet 5 mg PO Q4H PRN PRN Pain Score 6-10 #0 tabs 04/10/22 sennosides 8.6 mg-docusate sodium 50 mg tablet (Stool Softener-Stimulant Laxative) 2 tab PO BID stool softner 04/10/22 atorvastatin 40 mg tablet 40 mg PO QHS #0 tabs 04/13/22
--- NOTE | 2022-04-13 14:15 | CASEMGMT ---
Discharge Utilization Review Rn This conventional underwriter set up wheel chair transportation through [facility] for a 4:00pm machine operator picker. Nursing staff made aware. Dejuan HANNA Horse Racing Manager
--- NOTE | 2022-04-13 14:25 | CASEMGMT ---
PARESH received patient's discharge orders. PARESH sent all d/c orders, corn picker time, and COVID test to [place] via [facility]. SW attempted to call patient's 2 times, but no one was home. PARESH called patient's daughter Saloni and let her know this information. She thanked PARESH. Saloni said she was going to call patient's and let her know this information inculding corn picker time. PARESH notified Samantha in Rehab that patient will be going to [place] at d/c. Plan: d/c to [place] at [facility] under skilled level of care on a [id number]. [facility] transported via wheelchair van. Toña Oconnor FORM TAMPING MACHINE OPERATOR BOB
--- NOTE | 2022-04-13 15:12 | CHAPLAIN ---
Type of Pastoral Visit _x__ Initial Visit ___ Follow-up Visit ___ On-call Visit ___ General Patient Visit ___ Spiritual Assessment ___ Family Conference ___ Bereavement ___ Rapid Response ___ Code Blue ___ Other (describe below) Pastoral Care Referral From _x__ Patient ___ Family ___ Nurse ___ Physician ___ Fermentation Manager ___ Principal Administrative Clerk ___ Other (describe below) Sacrament/Intervention _x__ Active listening ___ Anointing ___ Yazidism ___ Bereavement ___ Communion ___ Saranya exploration ___ ___ Life review _x__ Prayer ___ Reconciliation ___ Sacrament of Sick _x__ Supportive presence ___ Wedding ___ Other (describe below) Pastoral Comments patient describes his decline and recent fall; spouse is with him and she describes her own health concerns; pt states adamantly that he wants to go home; pt says that if I can't go home I could get negative; spouse agrees with spouse that she is becoming unable to care for him; there are children that are helpful but none are able to go lots of time or attention or give the care necessary for his ALS; discussion on what makes the patient more content or positive; pt was raised Confucianist in [place] but does not view his saranya as important or something to practice now; pt is willing for a prayer at this time;
== END 2022-04-13 16:16 | disposition skilled nursing facility (03) | DRG 280 ==
PROVIDERS: Admitting Provider Student in an Organized Health Care Education/Training Program; PCP Family Medicine; Visit Provider Internal Medicine
DX: I21.4 Non-ST elevation (NSTEMI) myocardial infarction (principal); E43 Unspecified severe protein-calorie malnutrition; G12.21 Amyotrophic lateral sclerosis; Z68.1 Body mass index [BMI] 19.9 or less, adult; I44.1 Atrioventricular block, second degree; I25.10 Atherosclerotic heart disease of native coronary artery without angina pectoris; I10 Essential (primary) hypertension; E78.5 Hyperlipidemia, unspecified; I49.1 Atrial premature depolarization; I49.3 Ventricular premature depolarization; Z95.5 Presence of coronary angioplasty implant and graft; Z79.02 Long term (current) use of antithrombotics/antiplatelets; Z79.82 Long term (current) use of aspirin; Z79.899 Other long term (current) drug therapy; Z87.820 Personal history of traumatic brain injury
CPT/HCPCS: 36415; 80048; 83735; 84443; 84484; 85025; 87426; 92507; 92523; 92610; 93005; 93306; 97162; 97166; 97530; 97802; J7030; A4216

== ENCOUNTER 2022-05-12 08:47 | Emergency (ER) | payer MEDICARE, OTHER, SELFPAY ==
[2022-05-12 08:48] VITALS: BP 133/95; PULSE 79; RESP 18; TEMP 36.3; O2SAT 97; BMI 17.9
--- NOTE | 2022-05-12 09:08 | EKG12_ITS ---
Test Reason : BRADYS Blood Pressure : / mmHG Vent. Rate : 078 BPM Atrial Rate : 078 BPM P-R Int : 000 ms QRS Dur : 082 ms QT Int : 394 ms P-R-T Axes : 256 068 -54 degrees QTc Int : 449 ms Normal sinus rhythm with PAC's Nonspecific ST and T wave abnormality Abnormal ECG Confirmed by KAMRON GRAHAM, BERNADETTE ([id number]), pictures editor MONI BURDICK ([id number]) on 05/13/2022 9:16:26 AM Referred By: RAMON Confirmed By:BERNADETTE LUNDY MD
[2022-05-12 09:19] VITALS: BP 111/48; PULSE 77; RESP 18
--- NOTE | 2022-05-12 09:40 | RAD_ITS ---
EXAM: XR CHEST, 1 VIEW CLINICAL INDICATION: sob TECHNIQUE: Frontal view of the chest. This report was created using [employer] report generation technology. COMPARISON: None. FINDINGS: LUNGS AND PLEURAL SPACES: Normal. No consolidation or edema. No pneumothorax. No effusion. HEART: Normal heart size. MEDIASTINUM: No mediastinal or hilar mass. BONES/JOINTS: Cephalic drift of the right humeral head suggestive of rotator cuff deformity. SOFT TISSUES: Normal. RAD/Chest 1 View (Portable) IMPRESSION: No acute cardiopulmonary abnormality. Electronically Signed: Sagar Hernandez MD at 10:14 EST ,
[2022-05-12 09:42] LABS: Absolute Lymphocyte Count 1.52 X10^3/uL (0.83-4.51); Absolute Neutrophil Count 3.5 X10^3/uL (2.0-7.7); Basophil# 0.06 X10^3/uL; Basophil% 1.1 % (0-1); Eosinophil# 0.18 X10^3/uL; Eosinophils% 3.2 % (0-5); Hematocrit 35.2 % (40-54); Hemoglobin 11.9 g/dL (13.0-16.5); Lymphocyte # 1.52 X10^3/ul (0.83-4.51); Lymphocyte % 27.3 % (19-41); Mean Corp Hgb Conc 33.8 g/dL (32-36); Mean Corpuscular Hgb 31.8 pg (27.0-32.0); Mean Corpuscular Volume 94.1 fL (80-94); Mean Platelet Vol. 9.7 fl (6.2-12.0); Monocyte# 0.33 X10^3/uL; Monocyte% 5.9 % (0-10); NRBC Flagged by Analyzer 0 % (0-5); Neutrophil # 3.47 X10^3/uL (2.7-7.7); Neutrophil % 62.3 % (47-70); Platelet Count 259 K/mm3 (150-450); RBC Distribution Width SD 41.2 fl (35.1-43.9); Red Blood Count 3.74 M/mm3 (4.6-6.2); White Blood Count 5.6 K/mm3 (4.4-11.0)
[2022-05-12 09:56] LABS: Anion Gap 7 (5-15); BUN 7 mg/dL (7-18); Chloride 104 mmol/L (98-107); Creatinine, Serum 0.39 mg/dL (0.70-1.30); EST Glomerular Filtration Rate 227 mL/min (>60); Est Glom Filt Rate - Afr Amer 274 mL/min (>60); Estimated Creatinine Clearance 45.92 ml/min; Glucose 105 mg/dL (74-106); Magnesium 2.2 mg/dL (1.6-2.6); Potassium 3.6 mmol/L (3.5-5.1); Sodium Level 140 mmol/L (136-145)
--- NOTE | 2022-05-12 11:34 | EX.ED.DYSGE1 ---
HPI History of Present Illness Chief Complaint: Palpitations Detail of Chief Complaint: Bradycardia Informant: patient, EMS and SNF Narrative Narrative: Patient sent in from the [facility] today secondary to bradycardia. Patient was admitted to the hospital from the rehab unit 1 month ago with symptomatic bradycardia. At that time he apparently had some lightheadedness and dizziness. Patient was found to be in type II heart block. On arrival to the floor he appeared to be in a sinus rhythm with PACs. He was discharged to the [facility] with a 30-day event monitor. When he followed up in the office 2 weeks later he had not been wearing the event monitor. Patient had normal vital signs at that time and no complaints. It was felt that they could hold the event monitor at this time and if he has recurrent symptoms they may consider applying it. It is documented in that note that the patient states he does not want a pacemaker. Apparent this morning the patient's heart rate was noted to be 35 at the [facility]. He states he had no symptoms. Upon EMS arrival heart rate was 40. When I transferred him to the medic unit for transfer his heart rate was up into the 60s and 70s. He again continues to insist that he does not want a pacemaker placed. [facility] Medical History Abnormal EKG ALS (amyotrophic lateral sclerosis) Atherosclerotic heart disease of [place] coronary artery without angina pectoris Atrial arrhythmia Chest pain Coronary artery disease Dementia Dizziness and giddiness Essential hypertension Family history of hypertension Fatigue Glaucoma History of subarachnoid hemorrhage Hyperlipidemia Hyperlipidemia Hypertension Hypertension Long-term use of high-risk medication Palpitations Premature atrial contractions Premature ventricular contraction Unstable angina Home Medications aspirin 81 mg tablet,delayed release 81 mg PO QDAY heart health 07/22/17 [History Last Taken Unknown] omega-3 fatty acids 1,000 mg capsule 1,000 mg PO QDAY Check with primary doctor 07/22/17 [History Last Taken Unknown] latanoprost 0.005 % eye drops 1 drp LEFT EYE QHS Check with primary doctor 04/15/20 [History Last Taken 03/30/22 21:00] timolol maleate 0.5 % eye drops 1 drp LEFT EYE DAILY Check with primary doctor 75 days #5 mL 04/15/20 [History Last Taken 03/31/22 09:00] ascorbic acid (vitamin C) 500 mg tablet 500 mg PO DAILY Check with primary doctor 10/09/21 [History Last Taken Unknown] clopidogrel 75 mg tablet 75 mg PO QDAY #90 tabs 01/19/22 [Rx Last Taken Unknown] cholecalciferol (vitamin D3) 10 mcg/mL (400 unit/mL) oral drops (D-Vi-Sahra) 10 mcg PO DAILY Check with primary doctor 03/31/22 [History Last Taken Unknown] losartan 25 mg tablet 25 mg PO DAILY BP 03/31/22 [History Last Taken Unknown] riluzole 50 mg tablet 50 mg PO .COMPLEX ALS 03/31/22 [History Last Taken 03/31/22 06:00] acetaminophen 500 mg tablet 1,000 mg PO Q6H PRN PRN Pain Score 1-5 #0 tabs 04/10/22 [Rx Last Taken Unknown] bisacodyl 10 mg rectal suppository 10 mg MO .PRN X 1 PRN Constipation #0 ea 04/10/22 [Rx Last Taken Unknown] fluticasone propionate 50 mcg/actuation nasal spray,suspension 2 spray NASAL DAILY #0 grams 04/10/22 [Rx Last Taken Unknown] food supplemt, lactose-reduced 0.08 gram-1.5 kcal/mL oral liquid (Ensure Plus High Protein) 120 ml PO 4X/DAY #0 mL 04/10/22 [Rx Last Taken Unknown] magnesium hydroxide 400 mg/5 mL oral suspension 30 ml PO .PRN X 1 PRN Constipation #0 mL 04/10/22 [Rx Last Taken Unknown] oxycodone 5 mg tablet 5 mg PO Q4H PRN PRN Pain Score 6-10 #0 tabs 04/10/22 [Rx Last Taken Unknown] sennosides 8.6 mg-docusate sodium 50 mg tablet (Stool Softener-Stimulant Laxative) 2 tab PO BID stool softner 04/10/22 [History Last Taken Unknown] atorvastatin 40 mg tablet 40 mg PO QHS #0 tabs 04/13/22 [Rx Last Taken Unknown] mirtazapine 15 mg tablet 30 mg PO QHS restless legs 04/22/22 [History Last Taken Unknown] sertraline 25 mg tablet 25 mg PO DAILY 04/22/22 [History Last Taken Unknown] Allergy/AdvReac Type Severity Reaction Status Date / Time nitroglycerin AdvReac Severe Low BP, Verified 05/12/22 08:52 near syncope Family History Father Myocardial infarction CAD (coronary artery disease) Surgical History History of repair of rotator cuff Hx of appendectomy Presence of stent in coronary artery (~08/2014) Social History household members: spouse Smoking Status: Former smoker how long ago did patient quit smokin years ago second hand exposure: No alcohol intake: current alcohol intake frequency: 0-2 drinks per day Alcohol type: wine and hard liquor substance use type: does not use caffeine: Yes Type: coffee Number of servings: 1 ROS ROS ED Constitutional Constitutional ED: Denies chills or fever(s) Eyes Eyes: Denies change in vision or discharge from eye(s) ENT ENT ED: Denies discharge from eye(s), rhinorrhea or sore throat Cardiovascular Cardiovascular: Denies chest pain or palpitations Respiratory/Chest Respiratory/Chest: Denies cough or dyspnea Gastrointestinal Gastrointestinal: Denies abdominal pain, nausea or vomiting Genitourinary Genitourinary ED: Denies difficulty urinating or dysuria Musculoskeletal Musculoskeletal: Denies extremity pain Integumentary Denies Abrasions or rash Neurologic Neurologic: Reports weakness; Denies headache(s) Psychiatric Psychiatric: Denies anxiety or depression Allergic/Immunologic Allergic/Immunologic ED: Denies lip swelling or urticaria EXAM Physical Exam Const Vital Signs: 05/12/22 08:48 05/12/22 09:19 05/12/22 09:19 Temperature 97.3 F L Temperature Source Temporal Pulse Rate 79 77 Respiratory Rate 18 18 Respiratory Pattern Normal Blood Pressure 133/95 H 111/48 L Blood Pressure Mean 107 69 Pulse Ox 97 Oxygen Delivery Method Room Air Room Air Positive cachectic General Appearance ED: cachectic Nutritional Appearance: cachectic HEENT Reports normocephalic and head/scalp atraumatic Eyes PERRL and EOMs intact bilaterally Neck supple Chest Wall inspection of chest normal and palpation of chest normal Resp normal respiratory effort and clear to auscultation bilaterally Cardio Rate: other Other Details: Irregular heart rate. No murmurs appreciated. GI normal to inspection, nondistended, normoactive bowel sounds Palpation: soft Extremity normal to inspection Neuro oriented x3 and no sensory deficits noted Sensorium / Orientation: alert Motor Exam: strength 5/5 throughout Psych mental status grossly normal Skin no rashes or lesions noted MDM MDM MDM Narrative Medical decision making narrative: Patient placed on cafeteria monitor. EKG, chest x-ray, lab work obtained. Lab Data Attestation: I reviewed the patient's lab results. Labs: Laboratory Results - last 24 hr 05/12/22 05/12/22 09:20 09:20 WBC 5.6 RBC 3.74 L Hgb 11.9 L Hct 35.2 L MCV 94.1 H MCH 31.8 MCHC 33.8 RDW Std Deviation 41.2 RDW Coeff of Amanda 12.0 Plt Count 259 MPV 9.7 Immature Gran % (Auto) 0.200 Neut % (Auto) 62.3 Lymph % (Auto) 27.3 [place] % (Auto) 5.9 Eos % (Auto) 3.2 Baso % (Auto) 1.1 H Absolute Neuts (auto) 3.5 Absolute Lymphs (auto) 1.52 Nucleated RBC % 0 Sodium 140 Potassium 3.6 Chloride 104 Carbon Dioxide 29.0 Anion Gap 7 BUN 7 Creatinine 0.39 L Estim Creat Clear Calc 45.92 Est GFR (MDRD) Af Amer 274 Est GFR (MDRD) Non-Af 227 BUN/Creatinine Ratio 18.0 Glucose 105 Calcium 9.0 Magnesium 2.2 Radiography Chest X-Ray - ED: 1 View, Read by ED Physician and Chronic Changes Diagnostic Testing: Clinical Impression(s) from Imaging Studies Chest X-Ray 05/12/22 09:40 IMPRESSION: No acute cardiopulmonary abnormality. Electronically Signed: Sagar Hernandez MD at 10:14 EST , EKG Initial EKG: Attestation: I personally reviewed and interpreted this EKG as follows: Interpretation: Sinus Rhythm (Sinus with PACs at 78 bpm. No acute ischemia. Similar to prior study from April 10.) Treatment and Re-Evaluation Narrative: Chest x-ray per my interpretation reveals chronic changes with no focal infiltrate. Radiology interpretation is reviewed. EKG appears to show sinus rhythm with PACs. Lab work is unremarkable. I spoke with Dr. Coulter, on-call for cardiology. I did relay to him that the patient continues to insist that he does not want a pacemaker placed. In light of this there is no need to place a 30-day event monitor. We will notify nursing staff at the [facility] this is his wish. He will be discharged back to the [facility]. Discharge Plan Triage Chief Complaint: Palpitations ED Provider: Shayna Armstrong Dx/Rx/DC Orders Clinical Impression: Bradycardia Instructions: ED Bradycardia Prescriptions: No Action aspirin 81 mg tablet,delayed release (DR/EC) 81 mg PO QDAY omega-3 fatty acids 1,000 mg capsule 1,000 mg PO QDAY timolol maleate 0.5 % drops 1 drp LEFT EYE DAILY 75 Days Qty: 5 latanoprost 0.005 % drops 1 drp LEFT EYE QHS ascorbic acid (vitamin C) 500 mg tablet 500 mg PO DAILY sertraline 25 mg tablet 25 mg PO DAILY cholecalciferol (vitamin D3) [D-Vi-Sahra] 10 mcg/mL (400 unit/mL) Drops 10 mcg PO DAILY losartan 25 mg tablet 25 mg PO DAILY riluzole 50 mg tablet 50 mg PO .COMPLEX Rx Instructions: 50 mg PO twice daily must be taken on empty stomach; no food 1 hr after or 2-3 hrs before dose Use Pt's Own Med acetaminophen 500 mg Tablet 1,000 mg PO Q6H PRN PRN (Reason: Pain Score 1-5) Qty: 0 0RF magnesium hydroxide 400 mg/5 mL Suspension 30 ml PO .PRN X 1 PRN (Reason: Constipation) Qty: 0 0RF bisacodyl 10 mg Suppository 10 mg MO .PRN X 1 PRN (Reason: Constipation) Qty: 0 0RF fluticasone propionate 50 mcg/actuation [place],Suspension 2 spray NASAL DAILY Qty: 0 0RF Ensure Plus High Protein 0.08 gram-1.5 kcal/mL Liquid 120 ml PO 4X/DAY Qty: 0 0RF oxycodone 5 mg Tablet 5 mg PO Q4H PRN PRN (Reason: Pain Score 6-10) Qty: 0 0RF sennosides-docusate sodium [Stool Softener-Stimulant Laxat] 8.6-50 mg tablet 2 tab PO BID atorvastatin 40 mg Tablet 40 mg PO QHS Qty: 0 0RF mirtazapine 15 mg tablet 30 mg PO QHS clopidogrel 75 mg tablet 75 mg PO QDAY Qty: 90 3RF Primary Care Provider: Marcos Nelson Referrals: Marcos Nelson MD [Primary Care Provider] - Activity Restrictions/Additional Instructions: Patient appears to have intermittent episodes of heart block with heart rates down into the 30s and 40s. He has made it known that he does not wish to have a pacemaker placed. In light of this there is no need to place him on a continuous monitor. Please monitor the patient for symptoms, but no acute intervention will be made unless the patient wishes to have a pacemaker. Disposition Disposition: Group Home Facility Discharge Location: [facility] [place]
[2022-05-12 12:05] VITALS: BP 117/73; PULSE 77; RESP 25; O2SAT 95
--- NOTE | 2022-05-12 12:33 | NURSING ---
SPOKE WITH [facility] ETA OF 30 MINUTES AT THIS TIME TO GET PT BACK TO [facility]
== END 2022-05-12 13:09 | disposition skilled nursing facility (03) ==
PROVIDERS: Emergency Provider Emergency Medicine; PCP Family Medicine; Visit Provider Emergency Medicine
DX: R00.1 Bradycardia, unspecified (principal); I25.10 Atherosclerotic heart disease of native coronary artery without angina pectoris; Z95.5 Presence of coronary angioplasty implant and graft; Z87.891 Personal history of nicotine dependence
CPT/HCPCS: 71045; 80048; 83735; 85025; 93005; 99285; A4216